=== PATIENT | female | born 1975 | race Caucasian/White ===

== ENCOUNTER → 2019-03-21 16:15 | Outpatient (CLI) | payer OTHER, MEDICAID, SELFPAY ==
--- NOTE | 2019-03-21 16:17 | DI.MG.S_ITS ---
BILATERAL DIGITAL SCREENING MAMMOGRAM 3D/2D WITH CAD: 03/21/2019 CLINICAL: Routine screening. Baseline exam. Family history of breast cancer. No prior exams were available for comparison. The tissue of both breasts is heterogeneously dense. This may lower the sensitivity of mammography. Current study was also evaluated with a Computer Aided Detection (CAD) system. No significant masses, calcifications, or other findings are seen in either breast. IMPRESSION: NEGATIVE There is no mammographic evidence of malignancy. A 1 year screening mammogram is recommended. This exam was interpreted at Station ID: [id number]. NOTE: For mammograms, a report in lay terms will be sent to the patient. Approximately 15% of breast malignancies will not be visualized mammographically. In the management of a palpable breast mass, a negative mammogram must not discourage biopsy of a clinically suspicious lesion. Electronically Signed By: Rio gunter/kellie:03/21/2019 16:52:36 letter sent: Normal Exam ACR BI-RADS Category 1: Negative [id number]
== END ==
PROVIDERS: Family Provider Family Medicine; PCP Family Medicine; Visit Provider Family Medicine
DX: Z12.31 Encounter for screening mammogram for malignant neoplasm of breast (principal); Z80.3 Family history of malignant neoplasm of breast
CPT/HCPCS: 77063; 77067

== ENCOUNTER 2019-05-13 21:37 | Emergency (ER) | payer OTHER, MEDICAID, SELFPAY ==
--- NOTE | 2019-05-13 21:46 | ED.CHESTPAIN ---
HPI - Chest Pain General Chief Complaint: Chest Pain Stated Complaint: tightness in chest, eyes bugging her Time Seen by Provider: 05/13/19 21:43 Source: patient Mode of arrival: Ambulatory Limitations: no limitations History of Present Illness HPI narrative: 43-year-old female former smoker with history of GERD, diabetes and morbid obesity presents with a chief complaint of some right eye irritation with matting for the past few days. She denies any significant pain nor recent illness involving runny nose, sore throat or cough. She does not were contacts and denies any obvious injury or exposures. She denies UV exposure, use of welding equipment or metal grinding. Patient was driving herself here to be evaluated for eye when a police car pulled up behind her and immediately she developed some anxiety and chest pressure which resolved prior to her arrival. She denies any provocation or palliation of this chest pain nor radiation. She denies other classic cardiac equivalent such as dizziness, weakness, lightheadedness nor unexplained diaphoresis, nausea or vomiting. MD complaint: chest pain Onset (ago): minute(s) Duration: now resolved Onset: other Pain location: substernal Severity: mild Quality: aching Pain radiation: none Relieving factors: nothing Exacerbating factors: nothing Treatments prior to arrival chest pain: none Related Data Previous Rx's Medication Instructions Recorded albuterol sulfate 90 mcg/actuation 2 puff INHALATION SEE INSTRUCTIONS 04/11/18 aerosol inhaler #1 inhalation naproxen 500 mg tablet 500 mg PO BID PRN #60 tab 05/02/18 ondansetron HCl 4 mg tablet 4 mg PO Q4H PRN #20 tab 09/05/18 fexofenadine 180 mg tablet 180 mg PO QDAY #90 tab 09/19/18 eletriptan 40 mg tablet See Rx Instructions PO .COMPLEX 03/06/19 #14 tab galcanezumab-gnlm 120 mg/mL 120 mg SUBCUT QMONTH #1 ml 03/06/19 subcutaneous pen injector famotidine 20 mg tablet 20 mg PO DAILY #30 tab 03/15/19 Allergies Allergy/AdvReac Type Severity Reaction Status Date / Time azithromycin [AZITHROMYCIN] Allergy Severe PROBLEMS Verified 05/11/19 13:16 BREATHING furosemide [FUROSEMIDE] Allergy Severe breathing Verified 05/11/19 13:16 problems,hives gabapentin [GABAPENTIN] Allergy Severe breathing Verified 05/11/19 13:16 problems,hives hydrocodone [HYDROCODONE] Allergy Severe unknown Verified 05/11/19 13:16 iron [IRON] Allergy Severe Unknown Verified 05/11/19 13:16 levofloxacin [LEVOFLOXACIN] Allergy Severe unknown Verified 05/11/19 13:16 loratadine [LORATADINE] Allergy Severe unknown Verified 05/11/19 13:16 meperidine [MEPERIDINE] Allergy Severe unknown Verified 05/11/19 13:16 niacin [NIACIN] Allergy Severe unknown Verified 05/11/19 13:16 promethazine [PROMETHAZINE] Allergy Severe unknown Verified 05/11/19 13:16 pyridoxine [PYRIDOXINE] Allergy Severe unknown Verified 05/11/19 13:16 adhesive [ADHESIVE] Allergy Intermediate unknown Verified 05/11/19 13:16 ascorbic acid [ASCORBIC ACID] Allergy Intermediate Verified 05/11/19 13:16 tramadol [TRAMADOL] Allergy Intermediate Verified 05/11/19 13:16 latex [LATEX] Allergy Unknown Verified 05/11/19 13:16 sulfamethoxazole Allergy Unknown ITCHY Verified 05/11/19 13:16 [From Bactrim] THROAT trimethoprim [From Bactrim] Allergy Unknown ITCHY Verified 05/11/19 13:16 THROAT Review of Systems Constitutional Constitutional: Denies chills, Denies fatigue, Denies fever(s), Denies frequent falls, Denies lethargy and Denies weakness Eyes Eyes: Denies change in vision, Reports eye discharge, Reports irritation and Denies loss of vision ENT Ears, Nose, Mouth, and Throat: Denies change in voice, Denies dizziness, Denies neck pain, Denies sore throat and Denies throat swelling Cardiovascular Cardiovascular: Reports chest pain, Denies irregular heart rhythm, Denies lightheadedness, Denies palpitations, Denies dyspnea, Denies dyspnea on exertion and Denies orthopnea Respiratory Respiratory: Denies cough, Denies dyspnea, Denies dyspnea on exertion and Denies wheezing Gastrointestinal Gastrointestinal: Denies abdominal pain, Denies change in bowel habits, Denies diarrhea, Denies nausea and Denies vomiting Genitourinary Genitourinary: Denies hematuria, Denies flank pain, Denies urinary incontinence and Denies urinary urgency Musculoskeletal Musculoskeletal: Denies back pain, Denies muscle weakness, Denies neck pain, Denies numbness and Denies tingling Integumentary/Breasts Skin/Breast: Denies pruritus, Denies erythema, Denies rash and Denies wounds Neurologic Neurologic: Denies behavioral changes, Denies confusion, Denies dizziness, Denies frequent falls, Denies loss of vision, Denies numbness, Denies tingling and Denies weakness Psychiatric Psychiatric: Denies anxiety, Denies behavioral changes, Denies confusion, Denies depression, Denies homicidal ideation and Denies suicidal ideation Endocrine Endocrine: Denies fatigue, Denies flushing and Denies palpitations Hematologic/Lymphatic Hematologic/Lymphatic: Denies easy bruising Allergic/Immunologic Allergic/Immunologic: Denies urticaria, Denies throat swelling and Denies wheezing Patient History Medical History Anemia (Chronic) Anxiety (Chronic) Asthma (Chronic) Biceps tendinitis of left shoulder (Inactive) Cervical strain (Inactive) Chicken pox (Resolved ~1983) CTS (carpal tunnel syndrome) (Chronic) Hayfever (Chronic) Hypothyroidism (Chronic ~2009) Increased wound drainage (Inactive) Measles (Resolved ~1980) Migraines (Chronic) Multiple contusions (Inactive) PCOS (polycystic ovarian syndrome) (Chronic) Pharyngitis (Inactive) PTSD (post-traumatic stress disorder) (Chronic) Rib contusion (Inactive) Right groin hernia (Inactive) RLS (restless legs syndrome) (Chronic) Scoliosis (Chronic) Superficial incisional surgical site infection (Inactive) Surgical History Anesthesia (Resolved) History of left salpingo-oophorectomy (Resolved 02/12/15) History of third molar tooth extraction (Resolved 09/2001) History of third molar tooth extraction (Resolved 06/30/06) Status post breast reduction (Resolved 11/10/95) Status post delivery (Resolved 10/03/01) Status post tonsillectomy and adenoidectomy (Resolved 1988) Family History Father No problems noted. Mother No problems noted. Social History Smoking Status: Former smoker Smoking Status: Former smoker Exam Narrative Exam Narrative: GENERAL: 43] year old patient appears stated age. Morbidly obese and anxious on arrival HEAD: Atraumatic. Normocephalic. EYES: Pupils equal round and reactive. Extraocular motions intact. No scleral icterus. Mild right eye injection with minimal exudate noted. No foreign bodies noted under inspection with Wood's lamp, upper lid everted and no foreign body noted. Symptoms improve with proparacaine. No dye uptake under UV lamp with fluorescein ENT: Nose without bleeding, purulent drainage. Throat without erythema, tonsillar hypertrophy or exudate. Airway patent. NECK: Trachea midline. Non tender CARDIOVASCULAR: Regular rate and rhythm without murmurs, gallops, or rubs. RESPIRATORY: Clear to auscultation. Breath sounds equal bilaterally. No wheezes, rales, or rhonchi. GASTROINTESTINAL: Abdomen soft, non-tender, nondistended. EXTREMITIES: No edema or joint tenderness. BACK: Nontender without deformity or crepitance. No flank tenderness. NEURO: AOx3. SKIN: No rash or erythema of visible areas Initial Vital Signs Initial Vital Signs: Vital Signs Temperature 99.2 F 05/13/19 22:08 Pulse Rate 102 H 05/13/19 22:08 Respiratory Rate 18 05/13/19 22:08 Blood Pressure 156/80 H 05/13/19 22:08 Pulse Oximetry 98 05/13/19 22:08 Course Orders Ordered: ED Orders 05/13/19 21:56 XR chest 1V Stat 05/13/19 21:57 B Type Natriuretic Peptide Stat Basic Metabolic Panel Stat Complete Blood Count AUTO DIFF Stat Troponin & CK Cardiac Panel Stat Discontinued Medications Fluorescein Sodium (Ful-Veronica) 1 mg EYE-RIGHT NOW ONE Stop: 05/14/19 00:50 Last Admin: 05/14/19 01:11 Dose: 1 mg Documented by: ELYSSA Proparacaine HCl (Parcaine 0.5% Ophth Erlinda) 1 drops EYE-RIGHT NOW ONE Stop: 05/13/19 21:55 Last Admin: 05/13/19 22:06 Dose: 1 drop Documented by: ELYSSA Sulfacetamide (Bleph-10 Prepack) 1 bottle MISC SEEINSTR ONE Stop: 05/14/19 01:01 Last Admin: 05/14/19 01:10 Dose: 1 bottle Documented by: ELYSSA Sulfacetamide (Bleph-10) 1 drops EYE-BOTH Q3H SUGEY Last Admin: 05/14/19 01:29 Dose: 1 bottle Documented by: [email or web address] Vital Signs Vital signs: Vital Signs - 8 hr 05/13/19 23:01 05/13/19 23:25 05/14/19 00:18 Temperature 100 F H Pulse Rate 95 H 94 H 101 H Respiratory Rate 15 16 16 Blood Pressure [Left Arm] 124/69 124/69 145/69 H Pulse Oximetry 98 97 96 05/14/19 00:30 Temperature Pulse Rate 96 H Respiratory Rate 22 Blood Pressure [Left Arm] 145/69 H Pulse Oximetry 95 MDM - Chest Pain Lab Data Result diagrams: 05/13/19 21:57 05/13/19 21:57 Labs: Lab Results 05/13/19 05/13/19 Range/Units 21:57 21:57 WBC 8.2 (4.5-11.0) X10^3/uL RBC 5.78 H (4.0-5.2) X10^6/uL Hgb 15.2 (12.0-16.0) g/dL Hct 44.1 (36-46) % MCV 76.3 L (80-100) fL MCH 26.2 (26-34) PG MCHC 34.4 (30-36) % RDW 14.8 (11.6-14.8) % Plt Count 249 (150-400) X10^3/uL Neut % (Auto) 65.4 (50-75) % Lymph % (Auto) 26.5 (25-40) % [place] % (Auto) 3.7 (3-14) % Eos % (Auto) 3.0 (2-4) % Baso % (Auto) 1.4 (0-2) % Neut # (Auto) 5400 (7701-7772) /uL Lymph # (Auto) 2200 (1471-9645) /uL [place] # (Auto) 300 (0-900) /uL Eos # (Auto) 200 (0-450) /uL Baso # (Auto) 100 (0-100) /uL Sodium 136 L (137-145) mmol/L Potassium 3.8 (3.4-5.1) mmol/L Chloride 98 (98-107) mmol/L Carbon Dioxide 25 (22-32) mmol/L BUN 14 (7-17) mg/dL Creatinine 0.40 L (0.52-1.04) mg/dL Estimated GFR > 60.0 (>60) mL/min BUN/Creatinine Ratio 35.0 H (6-22) Glucose 291 H (70-100) mg/dL Calcium 9.8 (8.4-10.2) mg/dL Total Creatine Kinase 69 (30-135) U/L CK-MB (CK-2) TNP CK-MB (CK-2) Rel Index TNP Troponin I < 0.012 (0.01-0.034) ng/mL B-Natriuretic Peptide < 100 (<100) MDM Narrative Medical decision making narrative: Multiple causes of chest pain considered including NH, PE, pneumothorax, pneumonia, aortic dissection, and pleurisy. Patient reports no radiation, no diaphoresis, no provocation with exertion, and no vomiting Patient's symptoms improved or duration of stay with above-stated therapies. Findings and discharge diagnosis discussed with patient/family followed by verbalization of understanding Return precautions discussed with patient/family whom verbalize understanding. Discharge Plan Departure Patient Disposition: Home Clinical Impression: Atypical chest pain Conjunctivitis Qualifiers: Conjunctivitis type: acute Acute conjunctivitis type: unspecified Laterality: right Qualified Code(s): H10.31 - Unspecified acute conjunctivitis, right eye Discharge Date/Time: 05/14/19 01:15 Instructions: DI for Atypical Chest Pain Activity Restrictions/Additional Instructions: *You have been diagnosed with [atypical chest pain, possibly anxiety and conjunctivitis] *What to do: *Take medications as directed *Follow up with your primary care provider in 2-3 days, call for an appointment. Let them know you were seen in the Emergency Department and that we ask that you be seen in follow up *Return to ER if you should have any new, worsening or concerning symptoms Prescriptions: No Action fexofenadine 180 mg tablet 180 mg PO QDAY Qty: 90 RF: 3 ondansetron HCl [Zofran] 4 mg tablet 4 mg PO Q4H PRN (Reason: nausea and vomiting) Qty: 20 RF: 2 famotidine [Pepcid] 20 mg tablet 20 mg PO DAILY Qty: 30 RF: 11 albuterol sulfate [Proventil HFA] 90 mcg/actuation HFA aerosol inhaler 2 puff INHALATION SEE INSTRUCTIONS Qty: 1 RF: 2 naproxen [Naprosyn] 500 mg tablet 500 mg PO BID PRN (Reason: pain) Qty: 60 RF: 2 eletriptan 40 mg tablet See Rx Instructions PO .COMPLEX Qty: 14 RF: 5 Emgality Pen 120 mg/mL pen injector 120 mg SUBCUT QMONTH Qty: 1 RF: 12 Referrals: Phillip Nunez MD [Primary Care Provider] -
--- NOTE | 2019-05-13 21:56 | DI.RAD.S_ITS ---
PROCEDURE: XR CHEST 1V INDICATIONS: chest pressure TECHNIQUE: One view of the chest was acquired. COMPARISON: [facility], , CHEST 2 VIEW, 06/05/2014, 23:28. FINDINGS: Surgical changes and devices: None. Lungs and pleura: Lungs are clear. No pleural effusions or pneumothorax. Mediastinum: Mediastinal contours appear normal. Heart size is normal. Bones and chest wall: No suspicious bony lesions. Overlying soft tissues appear unremarkable. IMPRESSION: No acute cardiopulmonary disease process. Dictated by: Tari Pacheco MD, PhD on 05/14/2019 at 8:40 Approved by: Tari Pacheco MD, PhD on 05/14/2019 at 8:43
[2019-05-13] MEDS: PROPARACAINE 0.5% OPHTH SOL 1 DROPS EYE-RIGHT (22:06)
[2019-05-13 22:07] LABS: Add Manual Diff / Slide Review NO; Basophils Absolute Auto 100 /uL (0-100); Basophils Percent Auto 1.4 % (0-2); Eosinophils Absolute Auto 200 /uL (0-450); Hematocrit 44.1 % (36-46); Hemoglobin 15.2 g/dL (12.0-16.0); Lymphocytes Absolute Auto 2200 /uL (1100-4500); Lymphocytes Percent Auto 26.5 % (25-40); Mean Corpuscular HGB Conc 34.4 % (30-36); Mean Corpuscular Hemoglobin 26.2 PG (26-34); Mean Corpuscular Volume 76.3 fL (80-100); Monocytes Absolute Auto 300 /uL (0-900); Monocytes Percent Auto 3.7 % (3-14); Neutrophils Absolute Auto 5400 /uL (1500-7000); Neutrophils Percent Auto 65.4 % (50-75); Platelet Count 249 X10^3/uL (150-400); Red Blood Cell Count 5.78 X10^6/uL (4.0-5.2); Red Cell Distribution Width 14.8 % (11.6-14.8); White Blood Cell Count 8.2 X10^3/uL (4.5-11.0)
[2019-05-13 22:08] VITALS: BP 156/80; PULSE 102; RESP 18; TEMP 37.3; O2SAT 98; BMI 44.6
[2019-05-13 22:15] LABS: Blood Urea Nitrogen 14 mg/dL (7-17); Calcium 9.8 mg/dL (8.4-10.2); Carbon Dioxide 25 mmol/L (22-32); Chloride 98 mmol/L (98-107); Creatine Kinase 69 U/L (30-135); Estimated Glomerular Filt Rate > 60.0 mL/min (>60); Glucose 291 mg/dL (70-100); HEMOLYSIS < 15 (0-50); Potassium 3.8 mmol/L (3.4-5.1); Sodium 136 mmol/L (137-145)
[2019-05-13 22:27] LABS: Troponin I < 0.012 ng/mL (0.01-0.034)
[2019-05-13 22:28] LABS: B Type Natriuretic Peptide < 100 (<100)
[2019-05-13 23:01] VITALS: BP 124/69; PULSE 95; RESP 15; O2SAT 98
[2019-05-13 23:25] VITALS: BP 124/69; PULSE 94; RESP 16; O2SAT 97
[2019-05-14 00:18] VITALS: BP 145/69; PULSE 101; RESP 16; TEMP 37.7; O2SAT 96
[2019-05-14 00:30] VITALS: BP 145/69; PULSE 96; RESP 22; O2SAT 95
[2019-05-14] MEDS: SULFACETAMIDE 10% OPHTH PREPACK 1 BOTTLE MISC (01:10)
[2019-05-14] MEDS: FLUORESCEIN 1 MG STRIP EYE-RIGHT (01:11)
[2019-05-14] MEDS: SULFACETAMIDE 10% 1 DROPS EYE-BOTH (01:29)
== END 2019-05-14 01:15 | disposition home or self-care (01) ==
PROVIDERS: Emergency Provider Emergency Medicine; Family Provider Family Medicine; PCP Family Medicine
DX: R07.89 Other chest pain (principal); H10.31 Unspecified acute conjunctivitis, right eye
CPT/HCPCS: 36415; 71045; 80048; 82550; 83880; 84484; 85025; 99284

== ENCOUNTER → 2019-06-07 10:51 | Outpatient (CLI) | payer OTHER, MEDICAID, SELFPAY ==
[2019-06-07 13:02] LABS: Cancer Antigen 125 17 U/mL (0-35)
[2019-06-13 15:30] LABS: Human HE4 Antigen 30 pmol/L
== END ==
PROVIDERS: Family Provider Family Medicine; PCP Family Medicine; Referring Provider Obstetrics & Gynecology; Visit Provider Obstetrics & Gynecology
DX: R19.03 Right lower quadrant abdominal swelling, mass and lump (principal)
CPT/HCPCS: 36415; 86304; 86305

== ENCOUNTER → 2019-06-29 12:36 | Outpatient (CLI) | payer OTHER, MEDICAID, SELFPAY ==
--- NOTE | 2019-06-29 15:20 | DIET.PN ---
Diabetes Intake: Initial Assessment Assess: Mrs. Skinner is a 43 YOF with PMHx significant for PCOS, Fibromyalgia, left tubal/ ovary removal who was referred for type 2 diabetes. She was diagnosed in 2016 with poor control to date. She recently started monitoring her BG, but does not do so routinely. She has not had an eye or dental exam in at least 23 yrs per pt report. She recently started metformin 500mg qd and reports allergic reaction to this medication in previous years. Labs: Per pt report: 13.7 (06/2016) Meds: metformin 500mg qd (will titrate to 1000mg BID) Wt: 251lb Ht: 63lb BMI: 44.46 (obese class III) DX: Altered nutrition related laboratory values related to impaired glucose metabolism, lack of previous exposure to nutrition information as evidenced by pt report, diagnosis of diabetes, previous diet high in refined carbohydrates. Intervention: 1. Completed intake assessment. Discussed barriers to care. 2. Discussed pathophysiology of diabetes. Reviewed A1c and its correlation to blood glucose numbers. Discussed recommended BG ranges. 3. Discussed importance of self-monitoring, how often, and when to check. 4. Reviewed hyper/hypoglycemia and treatment. 5. Reviewed safe disposal of equipment (strip/lancets/insulin needles). 6. Created SMART goals for pt self-care and success. 7. Discussed program curriculum outline and class needs based on individual goals. 8. Will request updated labs. SMART Goals: 1. Glucose control through healthier dietary habits. 2. Would like to start lose 100 lb through exercise, healthier eating, and stress management. Monitor/Evaluate: Anticipate excellent compliance. Pt will attend full DSME program.
== END ==
PROVIDERS: Family Provider Family Medicine; PCP Family Medicine; Referring Provider Family Medicine; Visit Provider Family Medicine
DX: E11.69 Type 2 diabetes mellitus with other specified complication (principal); E66.9 Obesity, unspecified; E28.2 Polycystic ovarian syndrome; M79.7 Fibromyalgia; Z71.3 Dietary counseling and surveillance; Z68.41 Body mass index [BMI] 40.0-44.9, adult; Z79.84 Long term (current) use of oral hypoglycemic drugs
CPT/HCPCS: G0108

== ENCOUNTER → 2019-07-05 12:32 | Outpatient (CLI) | payer OTHER, MEDICAID, SELFPAY ==
--- NOTE | 2019-07-05 12:34 | DI.US.S_ITS ---
PROCEDURE: US PELVIC COMPLETE INDICATIONS: PAIN TECHNIQUE: Real-time scanning was performed of the pelvic organs, with image documentation. Additional endovaginal scanning was necessary due to incomplete visualization of the adnexal and endometrial structures by transabdominal scanning. COMPARISON: [facility], US, US PELVIC COMPLETE, 05/11/2019, 13:43. FINDINGS: Transabdominal scanning: Limited scanning through the kidneys shows no hydronephrosis. No pathologic free abdominal or pelvic fluid. Endovaginal scanning: Uterus: Uterus is normal in size at 8.1 x 4.2 x 6.3 cm. No mass. The endometrium measures 8 mm in combined thickness. Small nabothian cysts. Ovaries: Right ovary is within normal limits. Unremarkable Doppler. Right ovary measures 3.5 x 2.6 x 3.4 cm. Left ovary is surgically absent. Right kidney measures 12 cm. Left kidney measures 13.3 cm. No hydronephrosis. IMPRESSION: 1. Normal sonographic appearance of the right ovary. The left ovary is surgically absent. 2. Unremarkable appearance of the uterus and endometrium. 3. No hydronephrosis. Dictated by: Mesfin Sandra M.D. on 07/05/2019 at 17:49 Approved by: Mesfin Sandra M.D. on 07/05/2019 at 17:52
--- NOTE | 2019-07-05 12:34 | DI.US.S_ITS ---
LIMITED ULTRASOUND OF LEFT BREAST: 07/05/2019 CLINICAL: Focal left breast pain. Diffuse left breast pain. Comparison is made to exams dated: 07/05/2019 mammogram and 03/21/2019 mammogram - [facility]. Real-time ultrasound of the left breast 2-4 o'clock and 7-8 o'clock regions was performed. Mayers scale images of the real-time examination were reviewed. No significant abnormalities were seen sonographically in the left breast. Specifically, no finding to correspond to the patient's pain or skin discoloration. IMPRESSION: NEGATIVE There is no suspicious finding or sonographic evidence of malignancy. Return to annual mammogram screening schedule is recommended. Findings and recommendations were conveyed to the patient at time of exam. This exam was interpreted at Station ID: [id number]. Electronically Signed By: Amy villareal/:07/05/2019 14:29:26 letter sent: Normal Exam Ultrasound BI-RADS: 1 Negative
--- NOTE | 2019-07-05 12:34 | DI.MG.S_ITS ---
UNILATERAL LEFT DIGITAL DIAGNOSTIC MAMMOGRAM 3D/2D: 07/05/2019 CLINICAL: Left pain and discoloration. Comparison is made to exam dated: 03/21/2019 [facility]. The tissue of left breast is heterogeneously dense. This may lower the sensitivity of mammography. No significant masses, calcifications, or other findings are seen in the breast. Specifically, no finding to correspond to the patient's skin discoloration or pain. IMPRESSION: INCOMPLETE: NEEDS ADDITIONAL IMAGING EVALUATION There is no abnormality seen in the left breast to correspond with the skin discoloration at 7 o'clock. There is no abnormality seen in the left breast to correspond with the pain in the lateral aspect, however, ultrasound is recommended. This was performed immediately following this exam. This exam was interpreted at Station ID: [id number]. NOTE: For mammograms, a report in lay terms will be sent to the patient. Approximately 15% of breast malignancies will not be visualized mammographically. In the management of a palpable breast mass, a negative mammogram must not discourage biopsy of a clinically suspicious lesion. Electronically Signed By: Amy villareal/:07/05/2019 14:28:31 ACR BI-RADS Category 0: Incomplete [id number]
== END ==
PROVIDERS: Family Provider Family Medicine; PCP Family Medicine; Referring Provider Obstetrics & Gynecology; Visit Provider Obstetrics & Gynecology
DX: R92.8 Other abnormal and inconclusive findings on diagnostic imaging of breast (principal); N64.4 Mastodynia; R10.2 Pelvic and perineal pain; N88.8 Other specified noninflammatory disorders of cervix uteri; Z90.721 Acquired absence of ovaries, unilateral
CPT/HCPCS: 64484; 76642; 76830; 76856; 77065; G0279

== ENCOUNTER → 2019-11-18 13:52 | Outpatient (CLI) | payer OTHER, MEDICAID, SELFPAY ==
[2019-11-20 01:41] LABS: COVID19 Sendout Not Detected (Not Detect)
== END ==
PROVIDERS: Family Provider Family Medicine; PCP Family Medicine; Visit Provider Physician Assistant
DX: Z01.818 Encounter for other preprocedural examination (principal)
CPT/HCPCS: 87635

== ENCOUNTER → 2020-03-24 09:48 | Outpatient (CLI) | payer OTHER, MEDICAID, SELFPAY ==
--- NOTE | 2020-03-24 | DI.MG.S_ITS ---
BILATERAL DIGITAL SCREENING MAMMOGRAM 3D/2D WITH CAD: 03/24/2020 CLINICAL: Routine screening. Family history of breast cancer. Comparison is made to exams dated: 07/05/2019 mammogram and 03/21/2019 mammogram - [facility]. The tissue of both breasts is heterogeneously dense. This may lower the sensitivity of mammography. Current study was also evaluated with a Computer Aided Detection (CAD) system. No significant masses, calcifications, or other findings are seen in either breast. There has been no significant interval change. IMPRESSION: NEGATIVE There is no mammographic evidence of malignancy. A 1 year screening mammogram is recommended. This exam was interpreted at Station ID: [id number]. NOTE: For mammograms, a report in lay terms will be sent to the patient. Approximately 15% of breast malignancies will not be visualized mammographically. In the management of a palpable breast mass, a negative mammogram must not discourage biopsy of a clinically suspicious lesion. Electronically Signed By: Brooke ballard/kellie:03/24/2020 16:22:27 letter sent: Normal Exam ACR BI-RADS Category 1: Negative [id number]
== END ==
PROVIDERS: Family Provider Family Medicine; PCP Family Medicine; Referring Provider Family Medicine; Visit Provider Family Medicine
DX: Z12.31 Encounter for screening mammogram for malignant neoplasm of breast (principal); Z80.3 Family history of malignant neoplasm of breast
CPT/HCPCS: 77063; 77067

== ENCOUNTER 2020-05-04 23:23 | Emergency (ER) | payer OTHER, MEDICAID, SELFPAY ==
[2020-05-04 23:25] VITALS: BP 161/94; PULSE 110; RESP 18; TEMP 37.6; O2SAT 97; BMI 42.5
--- NOTE | 2020-05-04 23:41 | ED_ITS ---
HPI - General Adult General Chief complaint: Back Pain/Injury Stated complaint: back pain Time Seen by Provider: 05/04/20 23:34 Source: patient Mode of arrival: Ambulatory Limitations: no limitations History of Present Illness HPI narrative: Patient is a 44-year-old female who approximately 24 hours ago was walking around her bed when she had a sudden onset of left lower back pain. She states that now she has bilateral lower back pain. No urinary symptoms. No change in bowel habits. No radiation down into her legs. She has had symptoms similar to this in the past. She states that she did not fall during this episode. She now also describes generalized abdominal pain. No fevers. No vomiting. Has not tried anything for symptoms prior to arrival. Related Data Previous Rx's Medication Instructions Recorded naproxen 500 mg tablet 500 mg PO BID PRN #60 tab 05/02/18 ondansetron HCl 4 mg tablet 4 mg PO Q4H PRN #20 tab 09/05/18 fexofenadine 180 mg tablet 180 mg PO QDAY #90 tab 09/19/18 eletriptan 40 mg tablet See Rx Instructions PO .COMPLEX 03/06/19 #14 tab galcanezumab-gnlm 120 mg/mL 120 mg SUBCUT QMONTH #1 ml 03/06/19 subcutaneous pen injector famotidine 20 mg tablet 20 mg PO DAILY #30 tab 03/15/19 blood sugar diagnostic #100 each 06/06/19 blood-glucose meter #1 each 06/06/19 lancets 30 gauge #100 each 06/06/19 oxycodone-acetaminophen 5 mg-325 2 tab PO Q4-6H PRN #20 tab 11/28/19 mg tablet duloxetine 20 mg capsule,delayed 40 mg PO DAILY #60 cap 03/17/20 release Allergies Allergy/AdvReac Type Severity Reaction Status Date / Time azithromycin [AZITHROMYCIN] Allergy Severe PROBLEMS Verified 02/18/20 14:21 BREATHING furosemide [FUROSEMIDE] Allergy Severe breathing Verified 02/18/20 14:21 problems,hives gabapentin [GABAPENTIN] Allergy Severe breathing Verified 02/18/20 14:21 problems,hives hydrocodone [HYDROCODONE] Allergy Severe unknown Verified 02/18/20 14:21 iron [IRON] Allergy Severe Unknown Verified 02/18/20 14:21 levofloxacin [LEVOFLOXACIN] Allergy Severe unknown Verified 02/18/20 14:21 loratadine [LORATADINE] Allergy Severe unknown Verified 02/18/20 14:21 meperidine [MEPERIDINE] Allergy Severe unknown Verified 02/18/20 14:21 niacin [NIACIN] Allergy Severe unknown Verified 02/18/20 14:21 promethazine [PROMETHAZINE] Allergy Severe unknown Verified 02/18/20 14:21 pyridoxine [PYRIDOXINE] Allergy Severe unknown Verified 02/18/20 14:21 adhesive [ADHESIVE] Allergy Intermediate unknown Verified 02/18/20 14:21 ascorbic acid [ASCORBIC ACID] Allergy Intermediate Verified 02/18/20 14:21 tramadol [TRAMADOL] Allergy Intermediate Verified 02/18/20 14:21 latex [LATEX] Allergy Unknown Verified 02/18/20 14:21 sulfamethoxazole Allergy Unknown ITCHY Verified 02/18/20 14:21 [From Bactrim] THROAT trimethoprim [From Bactrim] Allergy Unknown ITCHY Verified 02/18/20 14:21 THROAT morphine AdvReac Migraines Verified 02/18/20 14:21 Review of Systems Constitutional Constitutional: Denies fever(s) and Denies headache(s) ENT Ears, Nose, Mouth, and Throat: Denies headache(s) Cardiovascular Cardiovascular: Denies chest pain and Denies dyspnea Respiratory Respiratory: Denies dyspnea Gastrointestinal Gastrointestinal: Reports abdominal pain, Denies nausea and Denies vomiting Genitourinary Genitourinary: Denies dysuria Genitourinary: Denies dysuria Musculoskeletal Musculoskeletal: Denies arthralgias, Reports back pain and Denies myalgias Integumentary/Breasts Skin/Breast: Denies lesions and Denies rash Neurologic Neurologic: Denies behavioral changes and Denies headache(s) Psychiatric Psychiatric: Denies behavioral changes Hematologic/Lymphatic On Anticoagulants: No Allergic/Immunologic Allergic/Immunologic: Denies urticaria Patient History Medical History Anemia Anxiety Asthma Biceps tendinitis of left shoulder Cervical strain Chicken pox (~1983) CTS (carpal tunnel syndrome) Hayfever Hypothyroidism (~2009) Increased wound drainage Measles (~1980) Migraines Morbid obesity due to excess calories (07/21/16) Multiple contusions PCOS (polycystic ovarian syndrome) Pharyngitis PTSD (post-traumatic stress disorder) Rib contusion Right groin hernia RLS (restless legs syndrome) Scoliosis Superficial incisional surgical site infection Surgical History (Updated 11/28/19 @ 12:31 by Rekha Ramos MD) Anesthesia History of left salpingo-oophorectomy (02/12/15) History of third molar tooth extraction (09/2001) History of third molar tooth extraction (06/30/06) Status post breast reduction (11/10/95) Status post delivery (10/03/01) Status post tonsillectomy and adenoidectomy (1988) Family History Father No problems noted. Mother No problems noted. Unknown No pertinent family history Social History Smoking Status: Former smoker eating out: rarely or never Type(s) of exercise: walking, advised to exercise at least 150 min/week (moderate intensity aerobic) and advised to perform resistance training at least 2x/week Smoking Status: Former smoker alcohol intake frequency: 0-2 drinks per day Substance Use Type: does not use Exam Initial Vital Signs Initial Vital Signs: Vital Signs Temperature 99.7 F H 05/04/20 23:25 Pulse Rate 110 H 05/04/20 23:25 Respiratory Rate 18 05/04/20 23:25 Blood Pressure 161/94 H 05/04/20 23:25 Pulse Oximetry 97 05/04/20 23:25 Const General: cooperative and comfortable Limitations: mental status not altered HENMT Head: normal to inspection and normocephalic Resp Effort & Inspection: normal respiratory effort Cardio Rate: tachycardic Rhythm: regular rhythm GI Inspection: non-distended Palpation: soft, No firm, No rigid and tender (Generalized) Back/Spine/Pelvis Thoracic/Lumbar Spine: paraspinal tenderness (Left lumbar paraspinal), No th oracic spinal tenderness and No lumbar spinal tenderness Skin Lesions: no lesions Rashes: no rashes Neuro General: patient alert and patient awake Cognition: normal cognition Speech: speech normal Extrem General: normal to inspection and capillary refill normal Psych Appearance: grossly normal and well kempt Course Orders Ordered: ED Orders 05/04/20 23:47 Complete Blood Count AUTO DIFF Stat Comprehensive Metabolic Panel Stat Lipase Stat Vital Signs Vital signs: Vital Signs - 8 hr 05/04/20 23:25 01/11/21 02:18 Temperature 99.7 F H Pulse Rate 110 H 108 H Respiratory Rate 18 15 Blood Pressure 161/94 H 153/83 H Pulse Oximetry 97 97 Medical Decision Making Lab Data Lab results reviewed: Yes I reviewed the patient's lab results. Result diagrams: 05/04/20 23:47 05/04/20 23:47 Labs: Lab Results 05/04/20 05/04/20 Range/Units 23:47 23:47 WBC 9.7 (4.5-11.0) X10^3/uL RBC 5.82 H (4.0-5.2) X10^6/uL Hgb 15.3 (12.0-16.0) g/dL Hct 46.1 H (36-46) % MCV 79.2 L (80-100) fL MCH 26.3 (26-34) PG MCHC 33.2 (30-36) % RDW 14.4 (11.6-14.8) % Plt Count 289 (150-400) X10^3/uL Neut % (Auto) 65.8 (50-75) % Lymph % (Auto) 26.1 (25-40) % [place] % (Auto) 4.1 (3-14) % Eos % (Auto) 2.9 (2-4) % Baso % (Auto) 1.1 (0-2) % Neut # (Auto) 6400 (7712-4347) /uL Lymph # (Auto) 2500 (3910-4749) /uL [place] # (Auto) 400 (0-900) /uL Eos # (Auto) 300 (0-450) /uL Baso # (Auto) 100 (0-100) /uL Sodium 134 L (137-145) mmol/L Potassium 4.5 (3.4-5.1) mmol/L Chloride 97 L (98-107) mmol/L Carbon Dioxide 29 (22-32) mmol/L BUN 17 (7-17) mg/dL Creatinine 0.96 (0.52-1.04) mg/dL Estimated GFR > 60.0 (>60) mL/min BUN/Creatinine Ratio 17.7 (6-22) Glucose 320 H (70-100) mg/dL Calcium 9.8 (8.4-10.2) mg/dL Total Bilirubin 0.6 (0.2-1.3) mg/dL AST 22 (14-36) IU/L ALT 31 (<35) IU/L Alkaline Phosphatase 115 (38-126) U/L Total Protein 7.5 (6.3-8.2) g/dL Albumin 4.3 (3.5-5.0) g/dL Globulin 3.2 (1.7-4.1) g/dL Albumin/Globulin Ratio 1.3 (1.0-2.8) Lipase 66 (23-300) U/L Urine Dip Bedside Urine Glucose 1000 mg/dl Bedside Urine Bilirubin - Negative Bedside Urine Ketone - Negative Urine Specific [place] 1.020 Bedside Urine Occult Blood - Negative Bedside Urine pH 6.0 Bedside Urine Protein - Negative Bedside Urine Urobilinogen - Negative Bedside Urine Nitrite - Negative Bedside Urine Leukocytes - Negative Esterase Point of care testing: Urine Dip Bedside Urine Glucose 1000 mg/dl Bedside Urine Bilirubin - Negative Bedside Urine Ketone - Negative Urine Specific [place] 1.020 Bedside Urine Occult Blood - Negative Bedside Urine pH 6.0 Bedside Urine Protein - Negative Bedside Urine Urobilinogen - Negative Bedside Urine Nitrite - Negative Bedside Urine Leukocytes - Negative Esterase MDM Narrative Medical decision making narrative: Patient's labs are unremarkable. She does have a relatively benign abdominal exam. I feel given her clinical presentation her labs that we should hold on a abdominal CT scan for now. I have a strong suspicion that her left-sided lower back pain is musculoskeletal in origin given her presentation and history. Will treat conservatively with anti- inflammatories. Patient was given return precautions and follow-up i nstructions. She expressed understanding and agreement. Discharge Plan Departure Patient Disposition: Home Clinical Impression: Back pain, Abdominal pain Instructions: DI for Back Strain or Sprain Activity Restrictions/Additional Instructions: Because of your allergies your somewhat limited on which you can take. You can take Tylenol for discomfort. You can also use heat/ice and light stretching. Contact your primary provider for a follow-up. Return to the emergency department for any new or worsening symptoms Prescriptions: No Action fexofenadine 180 mg tablet 180 mg PO QDAY Qty: 90 RF: 3 ondansetron HCl [Zofran] 4 mg tablet 4 mg PO Q4H PRN (Reason: nausea and vomiting) Qty: 20 RF: 2 famotidine [Pepcid] 20 mg tablet 20 mg PO DAILY Qty: 30 RF: 11 (DME) blood-glucose meter [Blood Glucose Monitoring] Kit See Rx Instructions .ROUTE .MEDSUPPLY Qty: 1 RF: 0 (DME) Blood Glucose Test Strip See Rx Instructions .ROUTE .MEDSUPPLY Qty: 100 RF: 5 (DME) lancets 30 gauge misc See Rx Instructions .ROUTE .MEDSUPPLY Qty: 100 RF: 5 oxycodone-acetaminophen 5-325 mg tablet 2 tab PO Q4-6H PRN (Reason: pain) Qty: 20 RF: 0 duloxetine 20 mg capsule,delayed release(DR/EC) 40 mg PO DAILY Qty: 60 RF: 3 naproxen [Naprosyn] 500 mg tablet 500 mg PO BID PRN (Reason: pain) Qty: 60 RF: 2 eletriptan 40 mg tablet See Rx Instructions PO .COMPLEX Qty: 14 RF: 5 Emgality Pen 120 mg/mL pen injector 120 mg SUBCUT QMONTH Qty: 1 RF: 12 Referrals: Phillip Nunez MD [Primary Care Provider] -
[2020-05-05 00:13] LABS: Add Manual Diff / Slide Review NO; Basophils Absolute Auto 100 /uL (0-100); Basophils Percent Auto 1.1 % (0-2); Eosinophils Absolute Auto 300 /uL (0-450); Eosinophils Percent Auto 2.9 % (2-4); Hematocrit 46.1 % (36-46); Hemoglobin 15.3 g/dL (12.0-16.0); Lymphocytes Absolute Auto 2500 /uL (1100-4500); Lymphocytes Percent Auto 26.1 % (25-40); Mean Corpuscular HGB Conc 33.2 % (30-36); Mean Corpuscular Hemoglobin 26.3 PG (26-34); Mean Corpuscular Volume 79.2 fL (80-100); Monocytes Absolute Auto 400 /uL (0-900); Monocytes Percent Auto 4.1 % (3-14); Neutrophils Absolute Auto 6400 /uL (1500-7000); Neutrophils Percent Auto 65.8 % (50-75); Platelet Count 289 X10^3/uL (150-400); Red Blood Cell Count 5.82 X10^6/uL (4.0-5.2); Red Cell Distribution Width 14.4 % (11.6-14.8); White Blood Cell Count 9.7 X10^3/uL (4.5-11.0)
[2020-05-05 00:24] LABS: Alanine Aminotransferase 31 IU/L (<35); Albumin 4.3 g/dL (3.5-5.0); Albumin Globulin Ratio 1.3 (1.0-2.8); Alkaline Phosphatase 115 U/L (38-126); Aspartate Aminotransferase 22 IU/L (14-36); BUN Creatinine Ratio 17.7 (6-22); Bilirubin Total 0.6 mg/dL (0.2-1.3); Blood Urea Nitrogen 17 mg/dL (7-17); Calcium 9.8 mg/dL (8.4-10.2); Carbon Dioxide 29 mmol/L (22-32); Chloride 97 mmol/L (98-107); Estimated Glomerular Filt Rate > 60.0 mL/min (>60); Globulin 3.2 g/dL (1.7-4.1); Glucose 320 mg/dL (70-100); HEMOLYSIS < 15 (0-50); Lipase 66 U/L (23-300); Potassium 4.5 mmol/L (3.4-5.1); Sodium 134 mmol/L (137-145); Total Protein 7.5 g/dL (6.3-8.2)
[2020-05-05 02:18] VITALS: BP 153/83; PULSE 108; RESP 15; O2SAT 97
== END 2020-05-05 01:42 | disposition home or self-care (01) ==
PROVIDERS: Emergency Provider Emergency Medicine; Family Provider Family Medicine; PCP Family Medicine
DX: M54.5 Low back pain (principal); R10.84 Generalized abdominal pain; D64.9 Anemia, unspecified; E66.9 Obesity, unspecified; Z68.41 Body mass index [BMI] 40.0-44.9, adult; E03.9 Hypothyroidism, unspecified
CPT/HCPCS: 36415; 80053; 81003; 83690; 85025; 99283

== ENCOUNTER 2021-01-11 14:04 | Emergency (ER) | payer OTHER, MEDICAID, SELFPAY ==
[2021-01-11 14:15] VITALS: BP 155/73; PULSE 98; RESP 20; TEMP 36.8; O2SAT 99; BMI 43.0
--- NOTE | 2021-01-11 14:19 | DI.RAD.S_ITS ---
PROCEDURE: XR FOOT RT MIN 3V INDICATIONS: Metal chair fell on foot. Painful, non-weight bearing TECHNIQUE: 3 views of the foot were acquired. COMPARISON: None. FINDINGS: Bones: No acute fractures or dislocations. No suspicious bony lesions. Plantar and posterior calcaneal enthesophytes are present. Soft tissues: No suspicious soft tissue calcification. IMPRESSION: No acute osseous abnormality. If clinical suspicion and/or symptoms persist, additional imaging with repeat plain films, or advanced imaging (e.g. CT, MRI) may be helpful for further assessment. Dictated by: Daniel Lebron M.D. on 01/11/2021 at 14:31 Approved by: Daniel Lebron M.D. on 01/11/2021 at 14:32
--- NOTE | 2021-01-11 14:35 | ED.LOWEXIN ---
HPI - Extremity Injury (Lower) General Chief Complaint: Extremity Injury, Lower Stated Complaint: Rt Foot Pain, Chair Fell On It Time Seen by Provider: 01/11/21 14:16 Source: patient Mode of arrival: Ambulatory Limitations: no limitations History of Present Illness HPI Narrative: Patient is a 45-year-old female here for evaluation of right foot/ankle discomfort. She stated that she had a stack of folded metal folding chairs fall on her right foot. Since that time she has had pain. Has discomfort with standing and putting pressure on her foot. No prior injuries. Related Data Previous Rx's Medication Instructions Recorded fexofenadine 180 mg tablet 180 mg PO QDAY #90 tab 09/19/18 eletriptan 40 mg tablet See Rx Instructions PO .COMPLEX 03/06/19 #14 tab galcanezumab-gnlm 120 mg/mL 120 mg SUBCUT QMONTH #1 ml 03/06/19 subcutaneous pen injector (Emgality Pen) blood sugar diagnostic (Blood #100 each 06/06/19 Glucose Test) blood-glucose meter (Blood Glucose #1 each 06/06/19 Monitoring) lancets 30 gauge #100 each 06/06/19 triamcinolone acetonide 0.1 % See Rx Instructions TOPICAL BID 05/12/20 topical cream #30 g duloxetine 60 mg capsule,delayed 60 mg PO DAILY #90 cap 11/26/20 release Allergies Allergy/AdvReac Type Severity Reaction Status Date / Time azithromycin [AZITHROMYCIN] Allergy Severe PROBLEMS Verified 01/11/21 14:18 BREATHING furosemide [FUROSEMIDE] Allergy Severe breathing Verified 01/11/21 14:18 problems,hives gabapentin [GABAPENTIN] Allergy Severe breathing Verified 01/11/21 14:18 problems,hives hydrocodone [HYDROCODONE] Allergy Severe unknown Verified 01/11/21 14:18 iron [IRON] Allergy Severe Unknown Verified 01/11/21 14:18 levofloxacin [LEVOFLOXACIN] Allergy Severe unknown Verified 01/11/21 14:18 loratadine [LORATADINE] Allergy Severe unknown Verified 01/11/21 14:18 meperidine [MEPERIDINE] Allergy Severe unknown Verified 01/11/21 14:18 niacin [NIACIN] Allergy Severe unknown Verified 01/11/21 14:18 promethazine [PROMETHAZINE] Allergy Severe unknown Verified 01/11/21 14:18 pyridoxine [PYRIDOXINE] Allergy Severe unknown Verified 01/11/21 14:18 adhesive [ADHESIVE] Allergy Intermediate unknown Verified 01/11/21 14:18 ascorbic acid [ASCORBIC ACID] Allergy Intermediate Verified 01/11/21 14:18 tramadol [TRAMADOL] Allergy Intermediate Verified 01/11/21 14:18 latex [LATEX] Allergy Unknown Verified 01/11/21 14:18 sulfamethoxazole Allergy Unknown ITCHY Verified 01/11/21 14:18 [From Bactrim] THROAT trimethoprim [From Bactrim] Allergy Unknown ITCHY Verified 01/11/21 14:18 THROAT morphine AdvReac Migraines Verified 01/11/21 14:18 Review of Systems Musculoskeletal Musculoskeletal: Reports system reviewed and no additional complaints, except as documented and Reports as per HPI Integumentary/Breasts Skin/Breast: Reports system reviewed and no additional complaints, except as documented and Reports as per HPI Neurologic Neurologic: Reports system reviewed and no additional complaints, except as documented and Reports as per HPI Hematologic/Lymphatic On Anticoagulants: No Patient History Medical History Anemia Anxiety Asthma Biceps tendinitis of left shoulder Cervical strain Chicken pox (~1983) CTS (carpal tunnel syndrome) Hayfever Hypothyroidism (~2009) Increased wound drainage Measles (~1980) Migraines Morbid obesity due to excess calories (07/21/16) Multiple contusions PCOS (polycystic ovarian syndrome) Pharyngitis PTSD (post-traumatic stress disorder) Rib contusion Right groin hernia RLS (restless legs syndrome) Scoliosis Superficial incisional surgical site infection Surgical History (Updated 11/28/19 @ 12:31 by Rekha Ramos MD) Anesthesia History of left salpingo-oophorectomy (02/12/15) History of third molar tooth extraction (09/2001) History of third molar tooth extraction (06/30/06) Status post breast reduction (11/10/95) Status post delivery (10/03/01) Status post tonsillectomy and adenoidectomy (1988) Family History Father No problems noted. Mother No problems noted. Unknown No pertinent family history Social History Smoking Status: Former smoker eating out: rarely or never Type(s) of exercise: walking, advised to exercise at least 150 min/week (moderate intensity aerobic) and advised to perform resistance training at least 2x/week Smoking Status: Former smoker alcohol intake frequency: a few times a week Substance Use Type: does not use Exam Initial Vital Signs Initial Vital Signs: Vital Signs Temperature 98.3 F 01/11/21 14:15 Pulse Rate 98 H 01/11/21 14:15 Respiratory Rate 20 01/11/21 14:15 Blood Pressure 155/73 H 01/11/21 14:15 Pulse Oximetry 99 01/11/21 14:15 Const General: cooperative, healthy appearing and comfortable HENMT Head: normal to inspection and normocephalic Resp Effort & Inspection: normal respiratory effort Cardio Pulses: dorsalis pedis present on the right Skin General: no rashes or lesions noted Neuro General: patient alert and patient awake Sensory Exam: no sensory deficits noted Extrem Other: No proximal fibula tenderness. No Achilles tenderness. No tenderness along the mediolateral malleolus. Does have tenderness along the dorsum of the right foot. Procedures Orthopedic Splinting/Casting Injury #1: Lower Extremity Injury Location: foot Lower Extremity Immobilizer: Joshua wrap Other Orthopedic Equipment: crutches Post splinting neuro exam: no change Post splinting vascular exam: no change Placed by: Nursing Course Orders Ordered: ED Orders 01/11/21 14:19 XR foot RT min 3V Stat Vital Signs Vital signs: Vital Signs - 8 hr 01/11/21 14:15 Temperature 98.3 F Pulse Rate 98 H Respiratory Rate 20 Blood Pressure 155/73 H Pulse Oximetry 99 MDM - Extremity Injury (Lower) Imaging Data Extremity x-ray #1: Radiologist's Impression: [address] [address] XRay Report Signed Patient: Paulina Skinner MR#: [id number] : 1975 Acct:[id number] Age/Sex: 45 / F Date of Service: 01/11/21 Loc: ED Accession Number: [id number] ?? Procedure: XR foot RT min 3V Ordering Provider: Cullen Martinez D.O. PROCEDURE:? XR FOOT RT MIN 3V ? INDICATIONS:? Metal chair fell on foot. Painful, non-weight bearing ? TECHNIQUE:? 3 views of the foot were acquired.? ? COMPARISON:? None. ? FINDINGS:? ? Bones:? No acute fractures or dislocations.? No suspicious bony lesions.? Plantar and posterior calcaneal enthesophytes are present.? ? Soft tissues:? No suspicious soft tissue calcification. ? ? IMPRESSION:? No acute osseous abnormality.? If clinical suspicion and/or symptoms persist, additional imaging with repeat plain films, or advanced imaging (e.g. CT, MRI) may be helpful for further assessment. ? ? Dictated by: Daniel Lebron M.D. on 01/11/2021 at 14:31 ? ? Approved by: Daniel Lebron M.D. on 01/11/2021 at 14:32?? MDM Narrative Medical decision making narrative: Neurovascular intact, no fractures noted on the x-rays, patient stated that she needs crutches because of the discomfort with standing. Will provide an Joshua bandage for comfort as well. She was given return precautions and follow-up instructions. She expressed understanding and agreement. Discharge Plan Departure Patient Disposition: Home Clinical Impression: Contusion of foot, right Instructions: How to Use Crutches, DI for Contusion, How To Perform RICE (Rest, Ice, Compress, Elevate) Activity Restrictions/Additional Instructions: There were no fractures noted on the x-rays. You can walk on your right foot as tolerated. Use the crutches for your comfort. Keep your foot elevated. You can take Tylenol/ibuprofen for any discomfort. Prescriptions: No Action triamcinolone acetonide 0.1 % cream See Rx Instructions topical BID Qty: 30 RF: 0 fexofenadine 180 mg tablet 180 mg PO QDAY Qty: 90 RF: 3 (DME) blood-glucose meter [Blood Glucose Monitoring] Kit See Rx Instructions .ROUTE .MEDSUPPLY Qty: 1 RF: 0 (DME) Blood Glucose Test Strip See Rx Instructions .ROUTE .MEDSUPPLY Qty: 100 RF: 5 (DME) lancets 30 gauge misc See Rx Instructions .ROUTE .MEDSUPPLY Qty: 100 RF: 5 duloxetine 60 mg capsule,delayed release(DR/EC) 60 mg PO DAILY Qty: 90 RF: 1 eletriptan 40 mg tablet See Rx Instructions PO .COMPLEX Qty: 14 RF: 5 Emgality Pen 120 mg/mL pen injector 120 mg SUBCUT QMONTH Qty: 1 RF: 12 Referrals: Phillip Nunez MD [Primary Care Provider] -
[2021-01-11 14:51] VITALS: BP 159/67; PULSE 95; RESP 12; O2SAT 97
== END 2021-01-11 14:53 | disposition home or self-care (01) ==
PROVIDERS: Emergency Provider Emergency Medicine; Family Provider Family Medicine; PCP Family Medicine
DX: S90.31XA Contusion of right foot, initial encounter (principal); W22.8XXA Striking against or struck by other objects, initial encounter
CPT/HCPCS: 73630; 99283

== ENCOUNTER → 2021-04-09 17:21 | Outpatient (CLI) | payer OTHER, MEDICAID, SELFPAY ==
--- NOTE | 2021-04-09 | DI.MG.S_ITS ---
BILATERAL DIGITAL SCREENING MAMMOGRAM 3D/2D WITH CAD: 04/09/2021 CLINICAL: Routine screening. Family history of breast cancer. Comparison is made to exams dated: 03/24/2020 mammogram, 07/05/2019 ultrasound, 07/05/2019 mammogram, and 03/21/2019 mammogram - [facility]. The tissue of both breasts is heterogeneously dense. This may lower the sensitivity of mammography. Current study was also evaluated with a Computer Aided Detection (CAD) system. No significant masses, calcifications, or other findings are seen in either breast. There has been no significant interval change. IMPRESSION: NEGATIVE There is no mammographic evidence of malignancy. A 1 year screening mammogram is recommended. This exam was interpreted at Station ID: [id number]. NOTE: For mammograms, a report in lay terms will be sent to the patient. Approximately 15% of breast malignancies will not be visualized mammographically. In the management of a palpable breast mass, a negative mammogram must not discourage biopsy of a clinically suspicious lesion. Electronically Signed By: Rio gunter/kellie:04/10/2021 08:03:25 letter sent: Normal Exam ACR BI-RADS Category 1: Negative [id number]
== END ==
PROVIDERS: Family Provider Family Medicine; PCP Family Medicine; Referring Provider Family Medicine; Visit Provider Family Medicine
DX: Z12.31 Encounter for screening mammogram for malignant neoplasm of breast (principal); Z80.3 Family history of malignant neoplasm of breast
CPT/HCPCS: 77063; 77067

== ENCOUNTER 2021-09-22 18:32 | Emergency (ER) | payer OTHER, MEDICAID, SELFPAY ==
[2021-09-22 18:39] VITALS: BP 166/70; PULSE 127; RESP 18; TEMP 38.4; O2SAT 95; BMI 42.5
[2021-09-22 18:54] VITALS: TEMP 38.4
[2021-09-22] MEDS: IBUPROFEN 400 MG TABLET 800 MG PO (18:54)
--- NOTE | 2021-09-22 18:55 | DI.RAD.S_ITS ---
PROCEDURE: XR CHEST 2V INDICATIONS: cough, fever TECHNIQUE: 2 views of the chest were acquired. COMPARISON: None. FINDINGS: Surgical changes and devices: None. Lungs and pleura: Small [place] in the right lung base concerning for pneumonia No pleural effusions or pneumothorax. Mediastinum: Mediastinal contours are normal. Heart size is normal. Bones and chest wall: No suspicious bony abnormalities. Soft tissues appear unremarkable. IMPRESSION: Small right basilar opacity suspicious for pneumonia. Dictated by: Tari Pacheco MD, PhD on 09/22/2021 at 19:16 Approved by: Tari Pacheco MD, PhD on 09/22/2021 at 19:16
[2021-09-22 20:26] LABS: Influenza A - CEPHEID Flu A NEGATIVE (NEGATIVE); Influenza B - CEPHEID Flu B NEGATIVE (NEGATIVE)
[2021-09-22 20:27] LABS: COVID-19 CEPHEID PCR (VTM/NP) Negative (Negative)
--- NOTE | 2021-09-22 21:09 | ED.GENADULT ---
HPI - General Adult General Chief complaint: Fever Stated complaint: Chest congestion, cough, chills, Fever 101.3F ache Time Seen by Provider: 09/22/21 21:06 Source: patient Mode of arrival: Wheelchair History of Present Illness HPI narrative: 45-year-old woman with history of fibromyalgia, chronic migraine, reflux, PCOS who presents with increasing cough for the last 24 hours today with temperatures up to 102. Last time she had these symptoms she had a bacterial pneumonia that did eventually resolve with antibiotics. She is vaccinated against COVID. She describes no vomiting abdominal pain diarrhea dysuria flank pain. She is not have any palpitations but notes that she has a chronically elevated heart rate typically just around 100. She notes that the cough is severe enough that is causing significant headache and she was not able to sleep well last night. She is in no respiratory distress able to speak in full sentences and there is no audible wheezing. She states in the past she has had an inhaler but has not needed to use 1 for over 6 years at this point. Related Data Home Medications Medication Instructions Recorded Confirmed galcanezumab-gnlm 120 mg/mL 1 mg SUBCUT Q30D 01/11/21 07/13/21 subcutaneous pen injector (Emgality Pen) glipizide 2.5 mg tablet, extended 2.5 mg PO DAILY 01/11/21 07/13/21 release 24 hr sumatriptan succinate 100 mg tablet 100 mg PO DAILY PRN 01/11/21 07/13/21 Previous Rx's Medication Instructions Recorded fexofenadine 180 mg tablet 180 mg PO QDAY #90 tab 09/19/18 eletriptan 40 mg tablet See Rx Instructions PO .COMPLEX 03/06/19 #14 tab galcanezumab-gnlm 120 mg/mL 120 mg SUBCUT QMONTH #1 ml 03/06/19 subcutaneous pen injector (Emgality Pen) blood sugar diagnostic (Blood #100 each 06/06/19 Glucose Test) blood-glucose meter (Blood Glucose #1 each 06/06/19 Monitoring) lancets 30 gauge #100 each 06/06/19 Ankle Brachial Index #1 ea 05/05/21 duloxetine 60 mg capsule,delayed See Rx Instructions .ROUTE 06/12/21 release .COMPLEX #90 each albuterol sulfate 90 mcg/actuation 2 inh INHALATION BID PRN #8.5 g 09/22/21 aerosol inhaler amoxicillin 500 mg capsule 500 mg PO TID #30 cap 09/22/21 benzonatate 200 mg capsule 200 mg PO BID-TID PRN #14 cap 09/22/21 doxycycline hyclate 100 mg capsule 100 mg PO BID #20 cap 09/22/21 Allergies Allergy/AdvReac Type Severity Reaction Status Date / Time azithromycin [AZITHROMYCIN] Allergy Severe PROBLEMS Verified 09/22/21 18:43 BREATHING furosemide [FUROSEMIDE] Allergy Severe breathing Verified 09/22/21 18:43 problems,hives gabapentin [GABAPENTIN] Allergy Severe breathing Verified 09/22/21 18:43 problems,hives hydrocodone [HYDROCODONE] Allergy Severe unknown Verified 09/22/21 18:43 iron [IRON] Allergy Severe Unknown Verified 09/22/21 18:43 levofloxacin [LEVOFLOXACIN] Allergy Severe unknown Verified 09/22/21 18:43 loratadine [LORATADINE] Allergy Severe unknown Verified 09/22/21 18:43 meperidine [MEPERIDINE] Allergy Severe unknown Verified 09/22/21 18:43 niacin [NIACIN] Allergy Severe unknown Verified 09/22/21 18:43 promethazine [PROMETHAZINE] Allergy Severe unknown Verified 09/22/21 18:43 pyridoxine [PYRIDOXINE] Allergy Severe unknown Verified 09/22/21 18:43 adhesive [ADHESIVE] Allergy Intermediate unknown Verified 09/22/21 18:43 ascorbic acid [ASCORBIC ACID] Allergy Intermediate Verified 09/22/21 18:43 tramadol [TRAMADOL] Allergy Intermediate Verified 09/22/21 18:43 latex [LATEX] Allergy Unknown Verified 09/22/21 18:43 sulfamethoxazole Allergy Unknown ITCHY Verified 09/22/21 18:43 [From Bactrim] THROAT trimethoprim [From Bactrim] Allergy Unknown ITCHY Verified 09/22/21 18:43 THROAT morphine AdvReac Migraines Verified 09/22/21 18:43 Review of Systems Review of Systems Narrative: Remainder of complete review of systems is otherwise unremarkable except for that included in the HPI. Patient History Medical History Anemia Anxiety Asthma Biceps tendinitis of left shoulder Cervical strain Chicken pox (~1983) CTS (carpal tunnel syndrome) Elevated blood pressure reading Hayfever Hypothyroidism (~2009) Increased wound drainage Measles (~1980) Migraine without aura and without status migrainosus, not intractable (~07/21/16) Migraines Morbid obesity due to excess calories (07/21/16) Multiple contusions PCOS (polycystic ovarian syndrome) Pharyngitis PTSD (post-traumatic stress disorder) Rib contusion Right groin hernia RLS (restless legs syndrome) Scoliosis Superficial incisional surgical site infection Type 2 diabetes mellitus without complication, without long-term current use of insulin (07/21/16) Surgical History Anesthesia History of left salpingo-oophorectomy (02/12/15) History of third molar tooth extraction (09/2001) History of third molar tooth extraction (06/30/06) S/P hysterectomy Status post breast reduction (11/10/95) Status post delivery (10/03/01) Status post tonsillectomy and adenoidectomy (1988) Family History Father No problems noted. Mother No problems noted. Unknown No pertinent family history Social History Smoking Status: Former smoker eating out: rarely or never Type(s) of exercise: walking, advised to exercise at least 150 min/week (moderate intensity aerobic) and advised to perform resistance training at least 2x/week Smoking Status: Former smoker alcohol intake frequency: a few times a week Substance Use Type: does not use Exam Initial Vital Signs Initial Vital Signs: Vital Signs Temperature 101.2 F H 09/22/21 18:39 Pulse Rate 127 H 09/22/21 18:39 Respiratory Rate 18 09/22/21 18:39 Blood Pressure 166/70 H 09/22/21 18:39 Pulse Oximetry 95 09/22/21 18:39 General: Nontoxic-appearing, dry cough in no acute distress. Able to give a complete and coherent history. Well-nourished well-developed HEENT: Moist mucous membranes, normal sclera with reactive pupils, no cervical adenopathy Respiratory: Lungs with mild rhonchi in the right base and right mid axillary line. Minimal wheezing appreciated however her dry cough sounds like there is some end expiratory wheeze. Full and symmetrical air movement. No accessory muscle use Cardiac: Mild tachycardia but otherwiseRegular rate and rhythm no murmurs no bruits Abdomen: Soft, nontender, good bowel tones, no flank pain Skin: Warm and dry, no rashes Neurologic: Grossly neurologically intact with no obvious asymmetries or abnormalities Extremities: No trauma, well perfused Psych: Cooperative, appropriate insight and affect Course Orders Ordered: ED Orders 09/22/21 18:55 XR chest 2V Stat 09/22/21 19:07 Covid-19 + FLU A/B by PCR Stat Discontinued Medications Ibuprofen (Ibuprofen 400 Mg Tablet) 800 mg PO NOW ONE Stop: 09/22/21 18:44 Last Admin: 09/22/21 18:54 Dose: 800 mg Documented by: NACHO Vital Signs Vital signs: Vital Signs - 8 hr 09/22/21 18:39 09/22/21 18:54 Temperature 101.2 F H 101.2 F H Pulse Rate 127 H Respiratory Rate 18 Blood Pressure 166/70 H Pulse Oximetry 95 Medical Decision Making Lab Data Labs: Lab Results 09/22/21 Range/Units 19:07 SARS-CoV-2 (PCR) Negative (Negative) Influenza A (RT-PCR) Flu a negative (NEGATIVE) Influenza B (RT-PCR) Flu b negative (NEGATIVE) Imaging Data Chest x-ray: Radiologist's Impression: FINDINGS:? ? Surgical changes and devices:? None.? ? Lungs and pleura:? Small Passy in the right lung base concerning for pneumonia No pleural effusions or pneumothorax.? ? Mediastinum:? Mediastinal contours are normal.? Heart size is normal.? ? Bones and chest wall:? No suspicious bony abnormalities.? Soft tissues appear unremarkable.? ? IMPRESSION:? Small right basilar opacity suspicious for pneumonia. ? ? Dictated by: Tari Pacheco MD, PhD on 09/22/2021 at 19:16 ? ? [facility] Narrative Medical decision making narrative: 45-year-old woman with 24 hours of increasing cough fevers to 101.2 nonproductive. No wheezing not complaining of significant dyspnea except for immediately post tussive. She states that she typically is tachycardic to 100. She does not appear toxic. She does have a clinical right lower lobe pneumonia on exam which is verified on chest x-ray. Oxygen saturations remain in the upper 90s. No evidence of COVID or influenza. At this point she has a clinical right lower lobe pneumonia and will be treated as such. With shared decision making we opted to not proceed with any additional blood work as it would not change course of action at this time. She will be given doxycycline and amoxicillin for 10 days. Prescription for Tessalon and a take-home pack of Percocet to help with sleep tonight and to use narcotic help cough suppressant. With the dry cough she may well find that she benefits from an inhaler and her last 1 a number of years ago will give her prescription for albuterol as well as spacer. Went over reasons for her to return to the emergency department. Questions are answered and she is safe for home discharge Discharge Plan Departure Patient Disposition: Home Clinical Impression: Bacterial pneumonia Instructions: DI for Pneumonia -- Adult Activity Restrictions/Additional Instructions: Thank you for coming in today Your COVID, influenza a and influenza B tests were negative. On clinical exam it does sound like your developing pneumonia in the right lower lobe. Your chest x-ray also suggests this. For outpatient treatment I am going to suggest 10 days of doxycycline along with 10 days of amoxicillin. Even as you are feeling better, please complete the entire course For cough you can use benzonatate/Tessalon Perles I have also given you a couple of tablets of Percocet to help with the pain from the cough as well as suppress the cough over the next 1-2 nights. In the past you said using an inhaler had been helpful. With the very dry and your cough I suspect that you may appreciate using 2 puffs of albuterol prior to bed to help with the cough as well. All prescriptions have been electronically transmitted to [facility] in [place] If you find that you are getting worse you do need to return to the emergency department. Prescriptions: New benzonatate 200 mg capsule 200 mg PO BID-TID PRN (Reason: cough) Qty: 14 0RF doxycycline hyclate 100 mg capsule 100 mg PO BID Qty: 20 0RF amoxicillin 500 mg capsule 500 mg PO TID Qty: 30 0RF albuterol sulfate 90 mcg/actuation HFA aerosol inhaler 2 inh inhalation BID PRN (Reason: shortness of breath or wheezing) Qty: 8.5 0RF Rx Instructions: please dispense with spacer and instuctions No Action (DME) Ankle Brachial Index See Rx Instructions .Route .MEDSUPPLY Qty: 1 0RF Rx Instructions: Ankle Brachial Index of both lower extremities. Absent pulse bilateral feet and right posterior tibial. Poorly controlled diabetes fexofenadine 180 mg tablet 180 mg PO QDAY Qty: 90 3RF (DME) blood-glucose meter [Blood Glucose Monitoring] Kit See Rx Instructions .ROUTE .MEDSUPPLY Qty: 1 0RF Rx Instructions: As directed to check blood sugar twice daily (DME) Blood Glucose Test Strip See Rx Instructions .ROUTE .MEDSUPPLY Qty: 100 5RF Rx Instructions: As directed twice daily for blood sugar testing (DME) lancets 30 gauge misc See Rx Instructions .ROUTE .MEDSUPPLY Qty: 100 5RF Rx Instructions: As directed twice daily for blood sugar testing duloxetine 60 mg capsule,delayed release(DR/EC) See Rx Instructions .ROUTE .COMPLEX Qty: 90 1RF Dose Instruction: Take 1 capsule by mouth once daily Rx Instructions: Take 1 capsule by mouth once daily sumatriptan succinate 100 mg tablet 100 mg PO DAILY PRN (Reason: Migraine Headache) 0RF Label Comments: TAKE 1 TABLET BY MOUTH AT FIRST ONSET OF MIGRAINE SYMPTOMS. MAY REPEAT AFTER 2 HOURS. MAX DOSE OF 200MG (2 TABLETS) EVERY 24 HOURS. UP TO 9 IN 28 DAYS. Rx Instructions: 9 tabs / month glipizide 2.5 mg tablet extended release 24hr 2.5 mg PO DAILY 0RF Label Comments: TAKE 1 TABLET BY MOUTH ONCE DAILY Emgality Pen 120 mg/mL pen injector 1 mg SUBCUT Q30D 0RF Label Comments: INJECT 1 ML UNDER THE SKIN ONCE EVERY 30 DAYS. eletriptan 40 mg tablet See Rx Instructions PO .COMPLEX Qty: 14 5RF Rx Instructions: take 1 tab at onset of headache; if no relief may repeat 1 tab in 2hr; max = 2 tabs/24 hrs PO Emgality Pen 120 mg/mL pen injector 120 mg SUBCUT QMONTH Qty: 1 12RF Referrals: Phillip Nunez MD [Primary Care Provider] -
[2021-09-22 21:46] VITALS: PULSE 112; O2SAT 95
[2021-09-22 22:00] VITALS: PULSE 109; O2SAT 94
[2021-09-22] MEDS: DOXYCYCLINE HYCLATE 100 MG TABLET PO (22:25)
[2021-09-22] MEDS: OXYCODONE/APAP 5/325 PREPACK 1 BOTTLE MISC (22:25)
[2021-09-22] MEDS: AMOXICILLIN 250 MG CAPSULE 500 MG PO (22:25)
[2021-09-22] MEDS: BENZONATATE 100 MG CAPSULE PO (22:25)
[2021-09-22] MEDS: OXYCODONE/ACETAMINOPHEN 5/325 TABLET 1 TAB PO (22:25)
[2021-09-22 22:28] VITALS: BP 158/99
== END 2021-09-22 22:29 | disposition home or self-care (01) ==
PROVIDERS: Emergency Provider Emergency Medicine; Family Provider Family Medicine; PCP Family Medicine
DX: J15.9 Unspecified bacterial pneumonia (principal); Z20.822 Contact with and (suspected) exposure to COVID-19
CPT/HCPCS: 71046; 87635; 99283; C9803

== ENCOUNTER 2021-10-06 20:53 | Emergency (ER) | payer OTHER, MEDICAID, SELFPAY ==
[2021-10-06 21:00] VITALS: BP 170/77; PULSE 104; RESP 20; TEMP 36.6; O2SAT 98; BMI 40.3
--- NOTE | 2021-10-06 21:08 | DI.RAD.S_ITS ---
PROCEDURE: XR FOOT RT MIN 3V INDICATIONS: possible fx per history and prvious x-rays TECHNIQUE: 3 views of the foot were acquired. COMPARISON: [facility], CR, XR FOOT RT MIN 3V, 01/11/2021, 14:20. FINDINGS: Bones: No fractures or dislocations. No suspicious bony lesions. Soft tissues: No tibiotalar joint effusion. Achilles tendon appears normal. IMPRESSION: 1. No fracture or dislocation. Dictated by: Brennan Hennessy M.D. on 10/06/2021 at 23:05 Approved by: Brennan Hennessy M.D. on 10/06/2021 at 23:06
--- NOTE | 2021-10-06 21:15 | PC.NURSE ---
pt was seen at [facility] for the same and was given a post op shoe to wear here today d/t continued pain
--- NOTE | 2021-10-06 23:16 | ED_ITS ---
HPI - Extremity Injury (Lower) General Chief Complaint: Extremity Injury, Lower Stated Complaint: rt foot injury on tuesday Time Seen by Provider: 10/06/21 21:15 Source: patient Mode of arrival: Wheelchair Limitations: no limitations History of Present Illness HPI Narrative: Patient is a 45-year-old female who approximately 3 days ago injured her right foot. She is playing a game with her family with an individual for family landed on the top of her right foot with his knee. Since that time she has had pain. Immediately afterwards she went to an outside emergency department and had x-rays performed. There was some concern about a fracture at the base of the 5th metatarsal although there was discussion that this could potentially be a normal variant. She did have some tenderness along this area but mostly the tenderness is on the top of her foot. She was placed in a walking shoe and was told to follow-up for symptoms did not improve. States since that time she has had bruising. Some tingling in her toes. Continue discomfort. She came to this emergency department for further evaluation. Related Data Home Medications Medication Instructions Recorded Confirmed galcanezumab-gnlm 120 mg/mL 1 mg SUBCUT Q30D 01/11/21 07/13/21 subcutaneous pen injector (Emgality Pen) glipizide 2.5 mg tablet, extended 2.5 mg PO DAILY 01/11/21 07/13/21 release 24 hr sumatriptan succinate 100 mg tablet 100 mg PO DAILY PRN Migraine 01/11/21 07/13/21 Headache Previous Rx's Medication Instructions Recorded fexofenadine 180 mg tablet 180 mg PO QDAY #90 tabs 09/19/18 eletriptan 40 mg tablet See Rx Instructions PO .COMPLEX 03/06/19 #14 tabs galcanezumab-gnlm 120 mg/mL 120 mg SUBCUT QMONTH #1 mL 03/06/19 subcutaneous pen injector (Emgality Pen) blood sugar diagnostic (Blood #100 ea 06/06/19 Glucose Test strips) blood-glucose meter (Blood Glucose #1 ea 06/06/19 Monitoring kit) lancets 30 gauge #100 ea 06/06/19 Ankle Brachial Index #1 ea 05/05/21 duloxetine 60 mg capsule,delayed See Rx Instructions .Route 06/12/21 release .COMPLEX #90 ea albuterol sulfate 90 mcg/actuation 2 inh inhalation BID PRN shortness 09/22/21 aerosol inhaler of breath or wheezing #8.5 grams amoxicillin 500 mg capsule 500 mg PO TID #30 caps 09/22/21 benzonatate 200 mg capsule 200 mg PO BID-TID PRN cough #14 09/22/21 caps doxycycline hyclate 100 mg capsule 100 mg PO BID #20 caps 09/22/21 Allergies Allergy/AdvReac Type Severity Reaction Status Date / Time azithromycin [AZITHROMYCIN] Allergy Severe PROBLEMS Verified 09/22/21 18:43 BREATHING furosemide [FUROSEMIDE] Allergy Severe breathing Verified 09/22/21 18:43 problems,hives gabapentin [GABAPENTIN] Allergy Severe breathing Verified 09/22/21 18:43 problems,hives hydrocodone [HYDROCODONE] Allergy Severe unknown Verified 09/22/21 18:43 iron [IRON] Allergy Severe Unknown Verified 09/22/21 18:43 levofloxacin [LEVOFLOXACIN] Allergy Severe unknown Verified 09/22/21 18:43 loratadine [LORATADINE] Allergy Severe unknown Verified 09/22/21 18:43 meperidine [MEPERIDINE] Allergy Severe unknown Verified 09/22/21 18:43 niacin [NIACIN] Allergy Severe unknown Verified 09/22/21 18:43 promethazine [PROMETHAZINE] Allergy Severe unknown Verified 09/22/21 18:43 pyridoxine [PYRIDOXINE] Allergy Severe unknown Verified 09/22/21 18:43 adhesive [ADHESIVE] Allergy Intermediate unknown Verified 09/22/21 18:43 ascorbic acid [ASCORBIC ACID] Allergy Intermediate Verified 09/22/21 18:43 tramadol [TRAMADOL] Allergy Intermediate Verified 09/22/21 18:43 latex [LATEX] Allergy Unknown Verified 09/22/21 18:43 sulfamethoxazole Allergy Unknown ITCHY Verified 09/22/21 18:43 [From Bactrim] THROAT trimethoprim [From Bactrim] Allergy Unknown ITCHY Verified 09/22/21 18:43 THROAT morphine AdvReac Migraines Verified 09/22/21 18:43 Review of Systems Musculoskeletal Musculoskeletal: Reports system reviewed and no additional complaints, except as documented Integumentary/Breasts Skin/Breast: Reports system reviewed and no additional complaints, except as documented Neurologic Neurologic: Reports system reviewed and no additional complaints, except as documented Patient History Medical History Anemia Anxiety Asthma Biceps tendinitis of left shoulder Cervical strain Chicken pox (~1983) CTS (carpal tunnel syndrome) Elevated blood pressure reading Hayfever Hypothyroidism (~2009) Increased wound drainage Measles (~1980) Migraine without aura and without status migrainosus, not intractable (~07/21/16) Migraines Morbid obesity due to excess calories (07/21/16) Multiple contusions PCOS (polycystic ovarian syndrome) Pharyngitis PTSD (post-traumatic stress disorder) Rib contusion Right groin hernia RLS (restless legs syndrome) Scoliosis Superficial incisional surgical site infection Type 2 diabetes mellitus without complication, without long-term current use of insulin (07/21/16) Surgical History Anesthesia History of left salpingo-oophorectomy (02/12/15) History of third molar tooth extraction (09/2001) History of third molar tooth extraction (06/30/06) S/P hysterectomy Status post breast reduction (11/10/95) Status post delivery (10/03/01) Status post tonsillectomy and adenoidectomy (1988) Family History Father No problems noted. Mother No problems noted. Unknown No pertinent family history Social History Smoking Status: Former smoker eating out: rarely or never Type(s) of exercise: walking, advised to exercise at least 150 min/week (moderate intensity aerobic) and advised to perform resistance training at least 2x/week Smoking Status: Former smoker alcohol intake frequency: a few times a week Substance Use Type: does not use Exam Initial Vital Signs Initial Vital Signs: Vital Signs Temperature 97.9 F 10/06/21 21:00 Pulse Rate 104 H 10/06/21 21:00 Respiratory Rate 20 10/06/21 21:00 Blood Pressure 170/77 H 10/06/21 21:00 Pulse Oximetry 98 10/06/21 21:00 Oxygen Delivery Method 10/06/21 21:00 Const General: cooperative and comfortable Cardio Pulses: dorsalis pedis present on the right Skin Other: Bruising at the base of the great 2nd and 3rd toes. Neuro Other: Tingling to the toes on the right foot. Extrem Other: Right ankle is unremarkable. She does have tenderness along the lateral aspect of the right foot however most of her discomfort is located on the dorsum of the right foot. No medial lateral malleolar tenderness. Course Orders Ordered: ED Orders 10/06/21 21:08 XR foot RT min 3V Stat Vital Signs Vital signs: Vital Signs - 8 hr 10/06/21 21:00 Temperature 97.9 F Pulse Rate 104 H Respiratory Rate 20 Blood Pressure 170/77 H Pulse Oximetry 98 Oxygen Delivery Method Room Air MDM - Extremity Injury (Lower) Imaging Data Extremity x-ray #1: Radiologist's Impression: [address] [address] XRay Report Signed Patient: Paulina Skinner MR#: [id number] : 1975 Acct:[id number] Age/Sex: 45 / F Date of Service: 10/06/21 Loc: ED Accession Number: [id number] ?? Procedure: XR foot RT min 3V Ordering Provider: Cullen Martinez D.O. PROCEDURE:? XR FOOT RT MIN 3V ? INDICATIONS:? possible fx per history and prvious x-rays ? TECHNIQUE:? 3 views of the foot were acquired.? ? COMPARISON:? [facility], , XR FOOT RT MIN 3V, 01/11/2021, 14:20. ? FINDINGS:? ? Bones:? No fractures or dislocations.? No suspicious bony lesions.? ? Soft tissues:? No tibiotalar joint effusion.? Achilles tendon appears normal.? ? ? IMPRESSION:? ? 1. No fracture or dislocation. ? ? Dictated by: Brennan Hennessy M.D. on 10/06/2021 at 23:05 ? ? Approved by: Brennan Hennessy M.D. on 10/06/2021 at 23:06? [facility] Narrative Medical decision making narrative: Patient is vascularly intact. Does have some tingling to the toes right foot. Some swelling to this area. The x-ray today shows no acute fractures. She does have some tenderness along the lateral aspect foot however the majority the discomfort is on the dorsum. Considered a Lisfranc injury however the mechanism is not consistent with this. Had a discussion with her regarding the x-rays today. I suspect the swelling is causing the tingling. Will have her continue to wear the orthopedic shoe for comfort. Discussed other conservative measures. I feel the hold on further radiologic studies for now. She was given return precautions. He expressed understanding and agreement. Discharge Plan Departure Patient Disposition: Home Clinical Impression: Contusion of foot, right Instructions: How To Perform RICE (Rest, Ice, Compress, Elevate) Activity Restrictions/Additional Instructions: You can continue to wear the hard sole shoe as needed for your comfort. The x- ray today did not show any overt fractures. Recommend he keep her foot elevated. Use ice. She can take Tylenol and ibuprofen for discomfort. Contact your primary doctor for follow-up. Prescriptions: No Action (DME) Ankle Brachial Index See Rx Instructions .Route .MEDSUPPLY Qty: 1 0RF Rx Instructions: Ankle Brachial Index of both lower extremities. Absent pulse bilateral feet and right posterior tibial. Poorly controlled diabetes fexofenadine 180 mg tablet 180 mg PO QDAY Qty: 90 3RF (DME) blood-glucose meter [Blood Glucose Monitoring] Kit See Rx Instructions .ROUTE .MEDSUPPLY Qty: 1 0RF Rx Instructions: As directed to check blood sugar twice daily (DME) Blood Glucose Test Strip See Rx Instructions .ROUTE .MEDSUPPLY Qty: 100 5RF Rx Instructions: As directed twice daily for blood sugar testing (DME) lancets 30 gauge misc See Rx Instructions .ROUTE .MEDSUPPLY Qty: 100 5RF Rx Instructions: As directed twice daily for blood sugar testing duloxetine 60 mg capsule,delayed release(DR/EC) See Rx Instructions .ROUTE .COMPLEX Qty: 90 1RF Dose Instruction: Take 1 capsule by mouth once daily Rx Instructions: Take 1 capsule by mouth once daily sumatriptan succinate 100 mg tablet 100 mg PO DAILY PRN (Reason: Migraine Headache) Label Comments: TAKE 1 TABLET BY MOUTH AT FIRST ONSET OF MIGRAINE SYMPTOMS. MAY REPEAT AFTER 2 HOURS. MAX DOSE OF 200MG (2 TABLETS) EVERY 24 HOURS. UP TO 9 IN 28 DAYS. Rx Instructions: 9 tabs / month glipizide 2.5 mg tablet extended release 24hr 2.5 mg PO DAILY Label Comments: TAKE 1 TABLET BY MOUTH ONCE DAILY Emgality Pen 120 mg/mL pen injector 1 mg SUBCUT Q30D Label Comments: INJECT 1 ML UNDER THE SKIN ONCE EVERY 30 DAYS. benzonatate 200 mg capsule 200 mg PO BID-TID PRN (Reason: cough) Qty: 14 0RF doxycycline hyclate 100 mg capsule 100 mg PO BID Qty: 20 0RF amoxicillin 500 mg capsule 500 mg PO TID Qty: 30 0RF albuterol sulfate 90 mcg/actuation HFA aerosol inhaler 2 inh inhalation BID PRN (Reason: shortness of breath or wheezing) Qty: 8.5 0RF Rx Instructions: please dispense with spacer and instuctions eletriptan 40 mg tablet See Rx Instructions PO .COMPLEX Qty: 14 5RF Rx Instructions: take 1 tab at onset of headache; if no relief may repeat 1 tab in 2hr; max = 2 tabs/24 hrs PO Emgality Pen 120 mg/mL pen injector 120 mg SUBCUT QMONTH Qty: 1 12RF Referrals: Phillip Nunez MD [Primary Care Provider] - Visit Report Forms: Patient Portal/API
== END 2021-10-06 23:26 | disposition home or self-care (01) ==
PROVIDERS: Emergency Provider Emergency Medicine; Family Provider Family Medicine; PCP Family Medicine
DX: S90.31XA Contusion of right foot, initial encounter (principal); W19.XXXA Unspecified fall, initial encounter
CPT/HCPCS: 73630; 99283

== ENCOUNTER → 2022-05-19 07:59 | Outpatient (CLI) | payer OTHER, MEDICAID, SELFPAY ==
--- NOTE | 2022-05-19 | DI.MG.S_ITS ---
BILATERAL DIGITAL SCREENING MAMMOGRAM 3D/2D WITH CAD: 05/19/2022 CLINICAL: Routine screening. Family history of breast cancer. Comparison is made to exams dated: 04/09/2021 mammogram, 03/24/2020 mammogram, and 03/21/2019 mammogram - [facility]. Both breasts are heterogeneously dense, which may obscure small masses (category c / 51-75% glandular tissue). Current study was also evaluated with a Computer Aided Detection (CAD) system. No significant masses, calcifications, or other findings are seen in either breast. There has been no significant interval change. IMPRESSION: NEGATIVE There is no mammographic evidence of malignancy. A 1 year screening mammogram is recommended. This exam was interpreted at Station ID: [id number]. NOTE: For mammograms, a report in lay terms will be sent to the patient. Approximately 15% of breast malignancies will not be visualized mammographically. In the management of a palpable breast mass, a negative mammogram must not discourage biopsy of a clinically suspicious lesion. Electronically Signed By: Mesfin velazquez/kellie:05/19/2022 13:01:38 letter sent: Normal Exam ACR BI-RADS Category 1: Negative [id number]
== END ==
PROVIDERS: Family Provider Family Medicine; PCP Family Medicine; Referring Provider Family Medicine; Visit Provider Family Medicine
DX: Z12.31 Encounter for screening mammogram for malignant neoplasm of breast (principal); Z80.3 Family history of malignant neoplasm of breast
CPT/HCPCS: 77063; 77067

== ENCOUNTER 2022-07-05 22:13 | Emergency (ER) | payer OTHER, MEDICAID, SELFPAY ==
[2022-07-05 22:31] VITALS: BP 180/85; PULSE 99; RESP 16; TEMP 36.5; O2SAT 98; BMI 38.9
== END 2022-07-06 01:13 | disposition left against medical advice (07) ==
PROVIDERS: Emergency Provider Emergency Medicine; Family Provider Family Medicine; PCP Family Medicine
CPT/HCPCS: 99281

== ENCOUNTER → 2022-08-11 14:41 | Outpatient (CLI) | payer OTHER, MEDICAID, SELFPAY | PROVIDERS: Family Provider Family Medicine; PCP Family Medicine; Visit Provider Nurse Practitioner Family | DX: J02.9 Acute pharyngitis, unspecified (principal) | CPT/HCPCS: 87070 ==

== ENCOUNTER → 2023-01-31 11:39 | Outpatient (CLI) | payer OTHER, MEDICAID, SELFPAY ==
--- NOTE | 2023-01-31 12:04 | DI.RAD.S_ITS ---
PROCEDURE: XR KNEE RT 3V INDICATIONS: rt knee TECHNIQUE: 3 views of the knee were acquired. COMPARISON: [facility], , KNEE 3V LEFT, 09/20/2013, 10:28. FINDINGS: Bones: No suspicious bony lesions. Early degenerative changes most notable in the medial compartment. There is an appearance of mild calcification along the lateral femoral condyle. Soft tissues: Prominent joint effusion. No suspicious soft tissue calcifications. IMPRESSION: Prominent effusion. Calcification is noted adjacent to the lateral femoral condyle possibly representing avulsion fracture. Dictated by: Angie Maloney M.D. on 01/31/2023 at 15:31 Approved by: Angie Maloney M.D. on 01/31/2023 at 15:32
[2023-01-31 12:29] LABS: Add Manual Diff / Slide Review NO; Basophils Absolute Auto 100 /uL (0-100); Basophils Percent Auto 0.8 % (0-2); Eosinophils Absolute Auto 300 /uL (0-450); Eosinophils Percent Auto 3.7 % (2-4); Hematocrit 42.7 % (36-46); Hemoglobin 14.7 g/dL (12.0-16.0); Lymphocytes Absolute Auto 1700 /uL (1100-4500); Lymphocytes Percent Auto 22.8 % (25-40); Mean Corpuscular HGB Conc 34.4 % (30-36); Mean Corpuscular Hemoglobin 27.8 PG (26-34); Mean Corpuscular Volume 80.8 fL (80-100); Monocytes Absolute Auto 300 /uL (0-900); Monocytes Percent Auto 3.6 % (3-14); Neutrophils Absolute Auto 5100 /uL (1500-7000); Neutrophils Percent Auto 69.1 % (50-75); Platelet Count 253 X10^3/uL (150-400); Red Blood Cell Count 5.29 X10^6/uL (4.0-5.2); Red Cell Distribution Width 14.3 % (11.6-14.8); White Blood Cell Count 7.4 X10^3/uL (4.5-11.0)
[2023-01-31 12:35] LABS: Alanine Aminotransferase 21 IU/L (<35); Albumin 4.1 g/dL (3.5-5.0); Albumin Globulin Ratio 1.5 (1.0-2.8); Alkaline Phosphatase 74 U/L (38-126); Aspartate Aminotransferase 20 IU/L (14-36); BUN Creatinine Ratio 18.8 (6-22); Bilirubin Total 0.8 mg/dL (0.2-1.3); Blood Urea Nitrogen 9 mg/dL (7-17); Calcium 9.7 mg/dL (8.4-10.2); Carbon Dioxide 30 mmol/L (22-32); Chloride 101 mmol/L (98-107); Cholesterol 206 mg/dL (140-199); Estimated Glomerular Filt Rate > 60 mL/min (>60); Globulin 2.7 g/dL (1.7-4.1); Glucose 126 mg/dL (70-100); HDL Cholesterol 37 mg/dL (40-60); HEMOLYSIS < 15 (0-50); LDL Cholesterol Calculated 144 mg/dL (<100); Potassium 4.2 mmol/L (3.4-5.1); Sodium 137 mmol/L (137-145); Total Protein 6.8 g/dL (6.3-8.2); Triglycerides 126 mg/dL (35-150)
[2023-01-31 12:44] LABS: Hemoglobin A1C% w Est Avg Glu 6.5 % (4.0-6.0)
== END ==
PROVIDERS: Family Provider Family Medicine; PCP Family Medicine; Referring Provider Family Medicine; Visit Provider Family Medicine
DX: E11.65 Type 2 diabetes mellitus with hyperglycemia (principal); M25.569 Pain in unspecified knee
CPT/HCPCS: 36415; 73562; 80053; 80061; 83036; 85025

== ENCOUNTER 2023-01-31 14:15 | Outpatient (RCR) | payer OTHER, MEDICAID, SELFPAY ==
--- NOTE | 2022-12-20 08:56 | PT.OIE ---
Current Diagnoses Pain in right knee (12/21/22) Past Medical History (Last Updated 09/22/22 @ 17:46 by Rico Talbot LPN) Anemia Anxiety Asthma Biceps tendinitis of left shoulder Cervical strain Chicken pox (~1983) CTS (carpal tunnel syndrome) Elevated blood pressure reading Hayfever Hypothyroidism (~2009) Increased wound drainage Measles (~1980) Migraine without aura and without status migrainosus, not intractable (~07/21/16) Migraines Morbid obesity due to excess calories (07/21/16) Multiple contusions PCOS (polycystic ovarian syndrome) Pharyngitis PTSD (post-traumatic stress disorder) Rib contusion Right groin hernia RLS (restless legs syndrome) Scoliosis Superficial incisional surgical site infection Type 2 diabetes mellitus without complication, without long-term current use of insulin (07/21/16) Past Surgical History (Last Reviewed 09/22/21 @ 22:13 by Grisel Lowe MD) Anesthesia History of left salpingo-oophorectomy (02/12/15) History of third molar tooth extraction (09/2001) History of third molar tooth extraction (06/30/06) S/P hysterectomy Status post breast reduction (11/10/95) Status post delivery (10/03/01) Status post tonsillectomy and adenoidectomy (1988) Visit Care Team Role Provider Type Phillip Nunez MD Attending Provider Physician Family Provider Primary Care Provider Referring Provider Specialty: Family Practice Address: [address] [place] [address] Email: [email or web address] Physical Therapy Initial Evaluation PT-OP-A Visit Information Start: 12/20/22 16:43 Freq: Status: Active Protocol: Document 12/21/22 08:56 AM (Rec: 12/21/22 14:09 AM [id number]) Out-Patient Physical Therapy Visit Information Visit Information Visit Type Initial Evaluation Visit Note *2 unit visits for 12 visits 0 Visit Start Time 09:04 Visit Stop Time 09:46 Total Visit Minutes 42 Visit Number 1 Number of [employer] Visits 0 Evaluation Information Evaluation Date 12/21/22 Precautions Precautions latex allergy PT-OP-B Current Condition Start: 12/20/22 16:43 Freq: Status: Active Protocol: Document 12/21/22 08:56 AM (Rec: 12/21/22 14:09 AM [id number]) Current Condition History of Current Condition Onset Date [id number] Current Complaints R knee pain History of Current Condition Pt reports that she has fractured bilateral patella. Pt reports that she has had frequent falls. Pt reports history of frequent falls and does not know why she has been falling so much. Pt reports that she fallen 20 times this year. Pt reports that she is going to be meeting with neurologist regarding headaches soon and will discuss fall hx with him. Pt reports that sometimes she trips, sometimes she gets lightheaded and falls, has fallen on the ice. Fall reasons are variable. Pt also reports that she has fibromyalgia and pain at multiple joints. Prior Treatments and Tests Pt denies previous PT for knee . She has worn a knee brace in the past. Prior Functional Status Baseline Function- ADL's Independent Baseline Function- Mobility Independent Current Functional Impairments (Reported) Functional Limitations- ADL's Pt reports that she has help from her with cleaning and cooking tasks. Pt reports difficulty with prolonged standing. Pt reports that she is able to stand for about 20 mins. Functional Limitations- Mobility/Gait Pt with frequent falls with walking. Pt with pain with walking. Functional Limitations- Recreation/ Pt reports difficulty with Hobbies swimming secondary to knee pain PT-OP-C Subjective Start: 12/20/22 16:43 Freq: Status: Active Protocol: Document 12/21/22 08:56 AM (Rec: 12/21/22 14:09 AM [id number]) Patient Questionnaires Lower Extremity Functional Scale LEFS Score 15 LEFS Impairment 80 to 99% Impaired (Score 1-16 ) OP-PT Pain Assessment Pain Assessment Grid Paper Pain Assessment Grid Completed Yes Location Right Knee Pain Location Details R anterior knee, patellar pain , occasionally at posterior knee Intensity 8 Scale Used Numeric (0 - 10) Description Acute,Sharp Description- Other Pt reports 9/10 pain at the worst Frequency Constant Pain Aggravating Factors ADL's,Activity,Exercise, Standing,Walking,Stair Climbing,Bending,Lifting Pain Alleviating Factors Cold,Heat,Rest Other Pain Alleviating Factors neoprene knee brace Home Pain Medication Use Pain Medications Used No PT-OP-D Balance Start: 12/20/22 16:43 Freq: Status: Active Protocol: Document 12/21/22 08:56 AM (Rec: 12/21/22 14:09 AM [id number]) Balance Tests Single Limb Standing Single Limb- Right 15 Single Limb- Left 15 PT-OP-E Functional Tests Start: 12/20/22 16:43 Freq: Status: Active Protocol: Document 12/21/22 08:56 AM (Rec: 12/21/22 14:09 AM [id number]) Functional Tests Five Times Sit to Stand Test Score 19.28 Comments painful PT-OP-F Manual Assessment Start: 12/20/22 16:43 Freq: Status: Active Protocol: Document 12/21/22 08:56 AM (Rec: 12/21/22 14:09 AM [id number]) Manual Assessments Joint Mobility Assessment Joint Mobility Assessment Hypomobility at José Manuel patella PT-OP-G Mobility & Gait Start: 12/20/22 16:43 Freq: Status: Active Protocol: Document 12/21/22 08:56 AM (Rec: 12/21/22 14:09 AM [id number]) OP Gait Assessment Gait Gait Assistance Required: Independent Assistive Devices Assistive Device None Gait Deviations General Gait Pattern Antalgic PT-OP-J Posture/Palpation/Skin Start: 12/20/22 16:43 Freq: Status: Active Protocol: Document 12/21/22 08:56 AM (Rec: 12/21/22 14:09 AM [id number]) Posture Evaluation Position Standing Knee Posture (L) Neutral,(R) Neutral Palpation Assessment Location Right knee Palpation Location R quads, HS Palpation Findings Soft Tissue Tightness,Muscle Guarding,Tenderness PT-OP-K Range of Motion Start: 12/20/22 16:43 Freq: Status: Active Protocol: Document 12/21/22 08:56 AM (Rec: 12/21/22 14:09 AM [id number]) Knee Goniometric Range of Motion Knee Left Knee ROM WFL No Patient Position Supine Flexion Active (degrees) 125 Extension Active (degrees) 0 Comments Hamstring 90/90: 45 deg Right Knee ROM WFL No Patient Position Supine Flexion Active (degrees) 114 Extension Active (degrees) 0 Comments hamstring 90/90 40 deg PT-OP-M Strength Start: 12/20/22 16:43 Freq: Status: Active Protocol: Document 12/21/22 08:56 AM (Rec: 12/21/22 14:09 AM [id number]) Hip Strength Hip Manual Muscle Testing Left Flexion (L2) 4- Good- Abduction 3+ Fair+ Right Flexion (L2) 4- Good- Abduction 3+ Fair+ Knee Strength Knee Manual Muscle Testing Left Flexion (S2) 4- Good- Extension (L3) 4- Good- Right Flexion (S2) 4- Good- Extension (L3) 4- Good- PT-OP-Q Treatments Start: 12/20/22 16:43 Freq: Status: Active Protocol: Document 12/21/22 08:56 AM (Rec: 12/21/22 14:09 AM [id number]) Therapeutic Exercises Supine Exercises SLR Supine Exercise Name SLR Side right Reps/Minutes x5 Quad sets Supine Exercise Name Quad sets Side right Equipment Used Towel under knee Reps/Minutes 5x5 sec Sidelying Exercises Clamshells Side right Reps/Minutes x10 PT-OP-T Assessment and Plan Start: 12/20/22 16:43 Freq: Status: Active Protocol: Document 12/21/22 08:56 AM (Rec: 12/21/22 14:09 AM [id number]) Physical Therapy Assessment Rehab Potential Rehabilitation Potential Good Evaluation Complexity Number of Personal Factors/Comorbidities 1-2 Number of Body Systems Impaired 1-2 Clinical Presentation at Evaluation Stable Impairments Impairments Activity Tolerance,Balance, Functional Activities, Functional Mobility,Gait,Pain, Posture,ROM,Soft Tissue Mobility,Strength Goals Swimming Impairment Pt unable to swim secondary to increase in knee pain. Legal Contracts Specialist Goal (LTG) Pt able to swim without increase in knee pain. LTG Duration 02/01/23 Strength Impairment Knee strength Impairment Pt with 4-/5 knee strength Short Term Goal (STG) Pt with R knee strength grossly at 4/5. STG Duration 01/11/23 Legal Contracts Specialist Goal (LTG) Pt with R knee strength grossly at 4+/5 LTG Duration 02/01/23 Walking ability Impairment Pain with ambulating Impairment Pt reports that she is only able to ambulate for 5 min at a time secondary to knee pain. Short Term Goal (STG) Pt able to ambulate for 15 min without need to stop secondary to R knee pain. STG Duration 01/11/23 Long-Term Goal (LTG) Pt able to ambulate for 30 min without need to stop secondary to R knee pain. LTG Duration 02/01/23 LEFS Impairment LEFS score Impairment Pt had a score of 15/80 on LEFS Short Term Goal (STG) Pt with score of 35/80 in LEFS STG Duration 01/11/23 Legal Contracts Specialist Goal (LTG) Pt with score of 50/80 on LEFS LTG Duration 02/01/23 Pain Impairment Pain rating Impairment Pt reports pain at 9/10 at the highest at her R knee. Short Term Goal (STG) Pt to report pain at 5/10 at the highest. STG Duration 01/11/23 Long-Term Goal (LTG) Pt to report pain at 3/10 at the highest. LTG Duration 02/01/23 Assessment Summary Assessment Paulina Skinner presents to PT to address R knee pain. Pt reports hx of frequent falls with 20 falls in the last year . Pt able to demonstrate SLS for 15 seconds on B LE, will assess dynamic balance and higher level balance challenges at future visits. Pt demonstrates hypomobility at josé manuel patella. Pt with stiffness at hip flexors and hamstrings with manual stretching. Pt demonstrates weakness at R glute med, HS and quads. Pt demonstrates antalgic gait pattern, reporting pain at josé manuel hips and ankles as well as josé manuel knees. Pt will benefit from continued PT to progress LE strength and mobility to improve tolerance to functional tasks. Physical Therapy Plan Frequency and Duration Frequency of Treatment 2x/Week Duration of treatment (weeks) 6 Plan of Care Start Date 12/21/22 Plan of Care End Date 02/01/23 Therapeutic Interventions Therapeutic Interventions Balance Training,Gait Training ,Home Exercise Program,Joint Mobilizations,Manual Therapy, Neuromuscular Re-education, Patient/Caregiver Education, Self-Care/Home Management,Soft Tissue Mobilization, Therapeutic Activities, Therapeutic Exercises Modalities Cold Pack/Ice Massage,Electric Stimulation,Hot Packs, Ultrasound Next Visit Focus/Plan Next Note Type Treatment Note Next Visit Plan assess dynamic and higher level balance challenges, initiate manual to decrease knee pain, reuben stretch, progress LE strength *2 unit visits for 12 visits
--- NOTE | 2022-12-21 08:56 | PT.OIE ---
Addendum entered and electronically signed by Randee Charles PT 12/22/22 16:51: *2 unit visits Original Note: Current Diagnoses Pain in right knee (12/21/22) Past Medical History (Last Updated 09/22/22 @ 17:46 by Rico Talbot LPN) Anemia Anxiety Asthma Biceps tendinitis of left shoulder Cervical strain Chicken pox (~1983) CTS (carpal tunnel syndrome) Elevated blood pressure reading Hayfever Hypothyroidism (~2009) Increased wound drainage Measles (~1980) Migraine without aura and without status migrainosus, not intractable (~07/21/16) Migraines Morbid obesity due to excess calories (07/21/16) Multiple contusions PCOS (polycystic ovarian syndrome) Pharyngitis PTSD (post-traumatic stress disorder) Rib contusion Right groin hernia RLS (restless legs syndrome) Scoliosis Superficial incisional surgical site infection Type 2 diabetes mellitus without complication, without long-term current use of insulin (07/21/16) Past Surgical History (Last Reviewed 09/22/21 @ 22:13 by Grisel Lowe MD) Anesthesia History of left salpingo-oophorectomy (02/12/15) History of third molar tooth extraction (09/2001) History of third molar tooth extraction (06/30/06) S/P hysterectomy Status post breast reduction (11/10/95) Status post delivery (10/03/01) Status post tonsillectomy and adenoidectomy (1988) Visit Care Team Role Provider Type Phillip Nunez MD Attending Provider Physician Family Provider Primary Care Provider Referring Provider Specialty: [facility] Address: [address] [place] [address], [facility] Email: [email or web address] Physical Therapy Initial Evaluation PT-OP-A Visit Information Start: 12/20/22 16:43 Freq: Status: Active Protocol: Document 12/21/22 08:56 AM (Rec: 12/21/22 14:09 AM [id number]) Out-Patient Physical Therapy Visit Information Visit Information Visit Type Initial Evaluation Visit Start Time 09:04 Visit Stop Time 09:46 Total Visit Minutes 42 Visit Number 1 Number of REGIONAL CRA Visits 0 Evaluation Information Evaluation Date 12/21/22 Precautions Precautions latex allergy PT-OP-B Current Condition Start: 12/20/22 16:43 Freq: Status: Active Protocol: Document 12/21/22 08:56 AM (Rec: 12/21/22 14:09 AM [id number]) Current Condition History of Current Condition Onset Date [id number] Current Complaints R knee pain History of Current Condition Pt reports that she has fractured bilateral patella. Pt reports that she has had frequent falls. Pt reports history of frequent falls and does not know why she has been falling so much. Pt reports that she fallen 20 times this year. Pt reports that she is going to be meeting with neurologist regarding headaches soon and will discuss fall hx with him. Pt reports that sometimes she trips, sometimes she gets lightheaded and falls, has fallen on the ice. Fall reasons are variable. Pt also reports that she has fibromyalgia and pain at multiple joints. Prior Treatments and Tests Pt denies previous PT for knee . She has worn a knee brace in the past. Prior Functional Status Baseline Function- ADL's Independent Baseline Function- Mobility Independent Current Functional Impairments (Reported) Functional Limitations- ADL's Pt reports that she has help from her with cleaning and cooking tasks. Pt reports difficulty with prolonged standing. Pt reports that she is able to stand for about 20 mins. Functional Limitations- Mobility/Gait Pt with frequent falls with walking. Pt with pain with walking. Functional Limitations- Recreation/ Pt reports difficulty with Hobbies swimming secondary to knee pain PT-OP-C Subjective Start: 12/20/22 16:43 Freq: Status: Active Protocol: Document 12/21/22 08:56 AM (Rec: 12/21/22 14:09 AM [id number]) Patient Questionnaires Lower Extremity Functional Scale LEFS Score 15 LEFS Impairment 80 to 99% Impaired (Score 1-16 ) OP-PT Pain Assessment Pain Assessment Grid Paper Pain Assessment Grid Completed Yes Location Right Knee Pain Location Details R anterior knee, patellar pain , occasionally at posterior knee Intensity 8 Scale Used Numeric (0 - 10) Description Acute,Sharp Description- Other Pt reports 9/10 pain at the worst Frequency Constant Pain Aggravating Factors ADL's,Activity,Exercise, Standing,Walking,Stair Climbing,Bending,Lifting Pain Alleviating Factors Cold,Heat,Rest Other Pain Alleviating Factors neoprene knee brace Home Pain Medication Use Pain Medications Used No PT-OP-D Balance Start: 12/20/22 16:43 Freq: Status: Active Protocol: Document 12/21/22 08:56 AM (Rec: 12/21/22 14:09 AM [id number]) Balance Tests Single Limb Standing Single Limb- Right 15 Single Limb- Left 15 PT-OP-E Functional Tests Start: 12/20/22 16:43 Freq: Status: Active Protocol: Document 12/21/22 08:56 AM (Rec: 12/21/22 14:09 AM [id number]) Functional Tests Five Times Sit to Stand Test Score 19.28 Comments painful PT-OP-F Manual Assessment Start: 12/20/22 16:43 Freq: Status: Active Protocol: Document 12/21/22 08:56 AM (Rec: 12/21/22 14:09 AM [id number]) Manual Assessments Joint Mobility Assessment Joint Mobility Assessment Hypomobility at José Manuel patella PT-OP-G Mobility & Gait Start: 12/20/22 16:43 Freq: Status: Active Protocol: Document 12/21/22 08:56 AM (Rec: 12/21/22 14:09 AM [id number]) OP Gait Assessment Gait Gait Assistance Required: Independent Assistive Devices Assistive Device None Gait Deviations General Gait Pattern Antalgic PT-OP-J Posture/Palpation/Skin Start: 12/20/22 16:43 Freq: Status: Active Protocol: Document 12/21/22 08:56 AM (Rec: 12/21/22 14:09 AM [id number]) Posture Evaluation Position Standing Knee Posture (L) Neutral,(R) Neutral Palpation Assessment Location Right knee Palpation Location R quads, HS Palpation Findings Soft Tissue Tightness,Muscle Guarding,Tenderness PT-OP-K Range of Motion Start: 12/20/22 16:43 Freq: Status: Active Protocol: Document 12/21/22 08:56 AM (Rec: 12/21/22 14:09 AM [id number]) Knee Goniometric Range of Motion Knee Left Knee ROM WFL No Patient Position Supine Flexion Active (degrees) 125 Extension Active (degrees) 0 Comments Hamstring 90/90: 45 deg Right Knee ROM WFL No Patient Position Supine Flexion Active (degrees) 114 Extension Active (degrees) 0 Comments hamstring 90/90 40 deg PT-OP-M Strength Start: 12/20/22 16:43 Freq: Status: Active Protocol: Document 12/21/22 08:56 AM (Rec: 12/21/22 14:09 AM [id number]) Hip Strength Hip Manual Muscle Testing Left Flexion (L2) 4- Good- Abduction 3+ Fair+ Right Flexion (L2) 4- Good- Abduction 3+ Fair+ Knee Strength Knee Manual Muscle Testing Left Flexion (S2) 4- Good- Extension (L3) 4- Good- Right Flexion (S2) 4- Good- Extension (L3) 4- Good- PT-OP-Q Treatments Start: 12/20/22 16:43 Freq: Status: Active Protocol: Document 12/21/22 08:56 AM (Rec: 12/21/22 14:09 AM [id number]) Therapeutic Exercises Supine Exercises SLR Supine Exercise Name SLR Side right Reps/Minutes x5 Quad sets Supine Exercise Name Quad sets Side right Equipment Used Towel under knee Reps/Minutes 5x5 sec Sidelying Exercises Clamshells Side right Reps/Minutes x10 PT-OP-T Assessment and Plan Start: 12/20/22 16:43 Freq: Status: Active Protocol: Document 12/21/22 08:56 AM (Rec: 12/21/22 14:09 AM [id number]) Physical Therapy Assessment Rehab Potential Rehabilitation Potential Good Evaluation Complexity Number of Personal Factors/Comorbidities 1-2 Number of Body Systems Impaired 1-2 Clinical Presentation at Evaluation Stable Impairments Impairments Activity Tolerance,Balance, Functional Activities, Functional Mobility,Gait,Pain, Posture,ROM,Soft Tissue Mobility,Strength Goals Swimming Impairment Pt unable to swim secondary to increase in knee pain. Physics Department Chair Goal (LTG) Pt able to swim without increase in knee pain. LTG Duration 02/01/23 Strength Impairment Knee strength Impairment Pt with 4-/5 knee strength Short Term Goal (STG) Pt with R knee strength grossly at 4/5. STG Duration 01/11/23 Physics Department Chair Goal (LTG) Pt with R knee strength grossly at 4+/5 LTG Duration 02/01/23 Walking ability Impairment Pain with ambulating Impairment Pt reports that she is only able to ambulate for 5 min at a time secondary to knee pain. Short Term Goal (STG) Pt able to ambulate for 15 min without need to stop secondary to R knee pain. STG Duration 01/11/23 Physics Department Chair Goal (LTG) Pt able to ambulate for 30 min without need to stop secondary to R knee pain. LTG Duration 02/01/23 LEFS Impairment LEFS score Impairment Pt had a score of 15/80 on LEFS Short Term Goal (STG) Pt with score of 35/80 in LEFS STG Duration 01/11/23 Snf Goal (LTG) Pt with score of 50/80 on LEFS LTG Duration 02/01/23 Pain Impairment Pain rating Impairment Pt reports pain at 9/10 at the highest at her R knee. Short Term Goal (STG) Pt to report pain at 5/10 at the highest. STG Duration 01/11/23 Physics Department Chair Goal (LTG) Pt to report pain at 3/10 at the highest. LTG Duration 02/01/23 Assessment Summary Assessment Paulina Skinner presents to PT to address R knee pain. Pt reports hx of frequent falls with 20 falls in the last year . Pt able to demonstrate SLS for 15 seconds on B LE, will assess dynamic balance and higher level balance challenges at future visits. Pt demonstrates hypomobility at josé manuel patella. Pt with stiffness at hip flexors and hamstrings with manual stretching. Pt demonstrates weakness at R glute med, HS and quads. Pt demonstrates antalgic gait pattern, reporting pain at josé manuel hips and ankles as well as josé manuel knees. Pt will benefit from continued PT to progress LE strength and mobility to improve tolerance to functional tasks. Physical Therapy Plan Frequency and Duration Frequency of Treatment 2x/Week Duration of treatment (weeks) 6 Plan of Care Start Date 12/21/22 Plan of Care End Date 02/01/23 Therapeutic Interventions Therapeutic Interventions Balance Training,Gait Training ,Home Exercise Program,Joint Mobilizations,Manual Therapy, Neuromuscular Re-education, Patient/Caregiver Education, Self-Care/Home Management,Soft Tissue Mobilization, Therapeutic Activities, Therapeutic Exercises Modalities Cold Pack/Ice Massage,Electric Stimulation,Hot Packs, Ultrasound Next Visit Focus/Plan Next Note Type Treatment Note Next Visit Plan assess dynamic and higher level balance challenges, initiate manual to decrease knee pain, reuben stretch, progress LE strength
--- NOTE | 2022-12-21 08:56 | PT.OPPOC ---
Physical, Occupational & Speech Therapy At [facility] Current Diagnoses Pain in right knee (12/21/22) Visit Care Team Role Provider Type Phillip Nunez MD Attending Provider Physician Family Provider Primary Care Provider Referring Provider Specialty: Family Practice Address: [address] [place] [address], [phone] Email: [email or web address] Plan Of Care PT-OP-T Assessment and Plan Start: 12/20/22 16:43 Freq: Status: Active Protocol: Document 12/21/22 08:56 AM (Rec: 12/21/22 14:09 AM [id number]) Physical Therapy Assessment Rehab Potential Rehabilitation Potential Good Evaluation Complexity Number of Personal Factors/Comorbidities 1-2 Number of Body Systems Impaired 1-2 Clinical Presentation at Evaluation Stable Impairments Impairments Activity Tolerance,Balance, Functional Activities, Functional Mobility,Gait,Pain, Posture,ROM,Soft Tissue Mobility,Strength Goals Swimming Impairment Pt unable to swim secondary to increase in knee pain. [employer] Decorator Goal (LTG) Pt able to swim without increase in knee pain. LTG Duration 02/01/23 Strength Impairment Knee strength Impairment Pt with 4-/5 knee strength Short Term Goal (STG) Pt with R knee strength grossly at 4/5. STG Duration 01/11/23 [employer] Cake Decorator Goal (LTG) Pt with R knee strength grossly at 4+/5 LTG Duration 02/01/23 Walking ability Impairment Pain with ambulating Impairment Pt reports that she is only able to ambulate for 5 min at a time secondary to knee pain. Short Term Goal (STG) Pt able to ambulate for 15 min without need to stop secondary to R knee pain. STG Duration 01/11/23 Skilled Nursing Goal (LTG) Pt able to ambulate for 30 min without need to stop secondary to R knee pain. LTG Duration 02/01/23 LEFS Impairment LEFS score Impairment Pt had a score of 15/80 on LEFS Short Term Goal (STG) Pt with score of 35/80 in LEFS STG Duration 01/11/23 [employer] Cake Decorator Goal (LTG) Pt with score of 50/80 on LEFS LTG Duration 02/01/23 Pain Impairment Pain rating Impairment Pt reports pain at 9/10 at the highest at her R knee. Short Term Goal (STG) Pt to report pain at 5/10 at the highest. STG Duration 01/11/23 [employer] Cake Decorator Goal (LTG) Pt to report pain at 3/10 at the highest. LTG Duration 02/01/23 Assessment Summary Assessment Paulina Skinner presents to PT to address R knee pain. Pt reports hx of frequent falls with 20 falls in the last year . Pt able to demonstrate SLS for 15 seconds on B LE, will assess dynamic balance and higher level balance challenges at future visits. Pt demonstrates hypomobility at josé manuel patella. Pt with stiffness at hip flexors and hamstrings with manual stretching. Pt demonstrates weakness at R glute med, HS and quads. Pt demonstrates antalgic gait pattern, reporting pain at josé manuel hips and ankles as well as josé manuel knees. Pt will benefit from continued PT to progress LE strength and mobility to improve tolerance to functional tasks. Physical Therapy Plan Frequency and Duration Frequency of Treatment 2x/Week Duration of treatment (weeks) 6 Plan of Care Start Date 12/21/22 Plan of Care End Date 02/01/23 Therapeutic Interventions Therapeutic Interventions Balance Training,Gait Training ,Home Exercise Program,Joint Mobilizations,Manual Therapy, Neuromuscular Re-education, Patient/Caregiver Education, Self-Care/Home Management,Soft Tissue Mobilization, Therapeutic Activities, Therapeutic Exercises Modalities Cold Pack/Ice Massage,Electric Stimulation,Hot Packs, Ultrasound Next Visit Focus/Plan Next Note Type Treatment Note Next Visit Plan assess dynamic and higher level balance challenges, initiate manual to decrease knee pain, reuben stretch, progress LE strength Plan of Care Dates Plan of Care Start Date 12/21/22 Plan of Care End Date 02/01/23 Electronically Signed by: Randee Charles, PT 12/21/22 [id number] If you are in agreement with this Plan of Care, please return a signed and dated copy. I have reviewed this Plan of Care and certify that the skilled therapy services above are required to meet the patient?s needs. Physician Signature Date Printed Name and Credentials Clinical Instructor Signature Printed Name and Credentials
--- NOTE | 2022-12-24 14:20 | PT.OTN ---
Current Diagnoses Pain in right knee (12/24/22) Physical Therapy Treatment Note PT-OP-A Visit Information Start: 12/20/22 16:43 Freq: Status: Active Protocol: Document 12/24/22 14:20 AM (Rec: 12/24/22 15:29 AM [id number]) Out-Patient Physical Therapy Visit Information Visit Information Visit Type Treatment Note Visit Start Time 14:20 Visit Stop Time 14:57 Total Visit Minutes 37 Visit Number 05/06 Precautions Precautions latex allergy PT-OP-B Current Condition Start: 12/20/22 16:43 Freq: Status: Active Protocol: Document 12/24/22 14:20 AM (Rec: 12/24/22 15:29 AM [id number]) Current Condition History of Current Condition Onset Date [id number] Current Complaints R knee pain History of Current Condition Pt reports that she has fractured bilateral patella. Pt reports that she has had frequent falls. Pt reports history of frequent falls and does not know why she has been falling so much. Pt reports that she fallen 20 times this year. Pt reports that she is going to be meeting with neurologist regarding headaches soon and will discuss fall hx with him. Pt reports that sometimes she trips, sometimes she gets lightheaded and falls, has fallen on the ice. Fall reasons are variable. Pt also reports that she has fibromyalgia and pain at multiple joints. Prior Treatments and Tests Pt denies previous PT for knee . She has worn a knee brace in the past. PT-OP-C Subjective Start: 12/20/22 16:43 Freq: Status: Active Protocol: Document 12/24/22 14:20 AM (Rec: 12/24/22 15:29 AM [id number]) OP-PT Subjective Patient Comments Patient Comments Pt reports knee pain at 9/10 today. Pt reports anterior R knee pain today. PT-OP-D Balance Start: 12/20/22 16:43 Freq: Status: Active Protocol: Document 12/21/22 08:56 AM (Rec: 12/21/22 14:09 AM [id number]) Balance Tests Single Limb Standing Single Limb- Right 15 Single Limb- Left 15 PT-OP-E Functional Tests Start: 12/20/22 16:43 Freq: Status: Active Protocol: Document 12/21/22 08:56 AM (Rec: 12/21/22 14:09 AM [id number]) Functional Tests Five Times Sit to Stand Test Score 19.28 Comments painful PT-OP-F Manual Assessment Start: 12/20/22 16:43 Freq: Status: Active Protocol: Document 12/21/22 08:56 AM (Rec: 12/21/22 14:09 AM [id number]) Manual Assessments Joint Mobility Assessment Joint Mobility Assessment Hypomobility at Jesus patella PT-OP-G Mobility & Gait Start: 12/20/22 16:43 Freq: Status: Active Protocol: Document 12/21/22 08:56 AM (Rec: 12/21/22 14:09 AM [id number]) OP Gait Assessment Gait Gait Assistance Required: Independent Assistive Devices Assistive Device None Gait Deviations General Gait Pattern Antalgic PT-OP-J Posture/Palpation/Skin Start: 12/20/22 16:43 Freq: Status: Active Protocol: Document 12/21/22 08:56 AM (Rec: 12/21/22 14:09 AM [id number]) Posture Evaluation Position Standing Knee Posture (L) Neutral,(R) Neutral Palpation Assessment Location Right knee Palpation Location R quads, HS Palpation Findings Soft Tissue Tightness,Muscle Guarding,Tenderness PT-OP-K Range of Motion Start: 12/20/22 16:43 Freq: Status: Active Protocol: Document 12/21/22 08:56 AM (Rec: 12/21/22 14:09 AM [id number]) Knee Goniometric Range of Motion Knee Left Knee ROM WFL No Patient Position Supine Flexion Active (degrees) 125 Extension Active (degrees) 0 Comments Hamstring 90/90: 45 deg Right Knee ROM WFL No Patient Position Supine Flexion Active (degrees) 114 Extension Active (degrees) 0 Comments hamstring 90/90 40 deg PT-OP-M Strength Start: 12/20/22 16:43 Freq: Status: Active Protocol: Document 12/21/22 08:56 AM (Rec: 12/21/22 14:09 AM [id number]) Hip Strength Hip Manual Muscle Testing Left Flexion (L2) 4- Good- Abduction 3+ Fair+ Right Flexion (L2) 4- Good- Abduction 3+ Fair+ Knee Strength Knee Manual Muscle Testing Left Flexion (S2) 4- Good- Extension (L3) 4- Good- Right Flexion (S2) 4- Good- Extension (L3) 4- Good- PT-OP-Q Treatments Start: 12/20/22 16:43 Freq: Status: Active Protocol: Document 12/24/22 14:20 AM (Rec: 12/24/22 15:29 AM [id number]) Cardio Equipment Recumbent Stepper (Sci-Fit) Duration (Minutes) 5 Resistance 2 Seat Position 9 Therapeutic Exercises Supine Exercises SLR Supine Exercise Name SLR Side right Reps/Minutes 2x10 Sidelying Exercises Clamshells Side bilateral Reps/Minutes x15 Standing Exercises Standing hamstring stretch Standing Exercise Name hamstring stretch Side bilateral Equipment Used step Reps/Minutes 2x30 sec Calf stretch Standing Exercise Name standing calf stretch Side bilateral Equipment Used wedge and railing for UE support Reps/Minutes 2x30 sec Other Exercises hip abduction Other Exercise Name hip abduction Side bilateral Equipment Used railing Reps/Minutes 2x10 Manual Therapy Treatment Soft Tissue Mobilization R knee Body Location R quads, ITB, adductors and gastroc Mobilization Type Myofascial Release Intensity/Depth Moderate Body Position Supine Comments 1/2 foam roll under knees Joint Mobilizations R patellar mobs Joint Patella Direction inf, med, sup Grade II Body Position Supine Reps/Duration 5 min Comments Hypomobility, towel roll under knee PT-OP-T Assessment and Plan Start: 12/20/22 16:43 Freq: Status: Active Protocol: Document 12/24/22 14:20 AM (Rec: 12/24/22 15:29 AM [id number]) Physical Therapy Assessment Impairments Impairments Activity Tolerance,Balance, Functional Activities, Functional Mobility,Gait,Pain, Posture,ROM,Soft Tissue Mobility,Strength Goals Swimming Impairment Pt unable to swim secondary to increase in knee pain. Usp Goal (LTG) Pt able to swim without increase in knee pain. LTG Duration 02/01/23 Strength Impairment Knee strength Impairment Pt with 4-/5 knee strength Short Term Goal (STG) Pt with R knee strength grossly at 4/5. STG Duration 01/11/23 Metal Lather Goal (LTG) Pt with R knee strength grossly at 4+/5 LTG Duration 02/01/23 Walking ability Impairment Pain with ambulating Impairment Pt reports that she is only able to ambulate for 5 min at a time secondary to knee pain. Short Term Goal (STG) Pt able to ambulate for 15 min without need to stop secondary to R knee pain. STG Duration 01/11/23 Usp Goal (LTG) Pt able to ambulate for 30 min without need to stop secondary to R knee pain. LTG Duration 02/01/23 LEFS Impairment LEFS score Impairment Pt had a score of 15/80 on LEFS Short Term Goal (STG) Pt with score of 35/80 in LEFS STG Duration 01/11/23 Usp Goal (LTG) Pt with score of 50/80 on LEFS LTG Duration 02/01/23 Pain Impairment Pain rating Impairment Pt reports pain at 9/10 at the highest at her R knee. Short Term Goal (STG) Pt to report pain at 5/10 at the highest. STG Duration 01/11/23 Usp Goal (LTG) Pt to report pain at 3/10 at the highest. LTG Duration 02/01/23 Assessment Summary Assessment Pt with fair tolerance to exercise today. Pt demonstrated myofascial restrictions at distal quads. Pt continues to demonstrate hypomobility at patella. Pt required cueing for pelvic control with clamshells. Pt would benefit from continued PT to progress R LE strength and mobility to improve tolerance to gait and functional activities. Kinesiotape test strip applied to L forearm. Pt instructed to remove tape if she develops any itching or skin irritation. Physical Therapy Plan Frequency and Duration Frequency of Treatment 2x/Week Duration of treatment (weeks) 6 Plan of Care Start Date 12/21/22 Plan of Care End Date 02/01/23 Therapeutic Interventions Therapeutic Interventions Balance Training,Gait Training ,Home Exercise Program,Joint Mobilizations,Manual Therapy, Neuromuscular Re-education, Patient/Caregiver Education, Self-Care/Home Management,Soft Tissue Mobilization, Therapeutic Activities, Therapeutic Exercises Modalities Cold Pack/Ice Massage,Electric Stimulation,Hot Packs, Ultrasound Next Visit Focus/Plan Next Note Type Treatment Note Next Visit Plan cont to progress R LE strength and mobility, initiate dynamic balance, kinesiotape test spot on L forearm-assess skin tolerance and consider KT at R knee if appropriate *2 unit visits for 12 visits
--- NOTE | 2022-12-28 09:01 | PT.OTN ---
Current Diagnoses Pain in right knee (12/28/22) Physical Therapy Treatment Note PT-OP-A Visit Information Start: 12/20/22 16:43 Freq: Status: Active Protocol: Document 12/28/22 09:01 AM (Rec: 12/28/22 12:02 AM [id number]) Out-Patient Physical Therapy Visit Information Visit Information Visit Type Treatment Note Visit Start Time 09:01 Visit Stop Time 09:38 Total Visit Minutes 37 Visit Number 06/06 Precautions Precautions latex allergy, fibromyalgia PT-OP-B Current Condition Start: 12/20/22 16:43 Freq: Status: Active Protocol: Document 12/28/22 09:01 AM (Rec: 12/28/22 12:02 AM [id number]) Current Condition History of Current Condition Onset Date [id number] Current Complaints R knee pain History of Current Condition Pt reports that she has fractured bilateral patella. Pt reports that she has had frequent falls. Pt reports history of frequent falls and does not know why she has been falling so much. Pt reports that she fallen 20 times this year. Pt reports that she is going to be meeting with neurologist regarding headaches soon and will discuss fall hx with him. Pt reports that sometimes she trips, sometimes she gets lightheaded and falls, has fallen on the ice. Fall reasons are variable. Pt also reports that she has fibromyalgia and pain at multiple joints. Prior Treatments and Tests Pt denies previous PT for knee . She has worn a knee brace in the past. PT-OP-C Subjective Start: 12/20/22 16:43 Freq: Status: Active Protocol: Document 12/28/22 09:01 AM (Rec: 12/28/22 12:02 AM [id number]) OP-PT Subjective Patient Comments Patient Comments Pt reports pain is still at 9/ 10 today. Patient Reported Progress Same PT-OP-D Balance Start: 12/20/22 16:43 Freq: Status: Active Protocol: Document 12/21/22 08:56 AM (Rec: 12/21/22 14:09 AM [id number]) Balance Tests Single Limb Standing Single Limb- Right 15 Single Limb- Left 15 PT-OP-E Functional Tests Start: 12/20/22 16:43 Freq: Status: Active Protocol: Document 12/21/22 08:56 AM (Rec: 12/21/22 14:09 AM [id number]) Functional Tests Five Times Sit to Stand Test Score 19.28 Comments painful PT-OP-F Manual Assessment Start: 12/20/22 16:43 Freq: Status: Active Protocol: Document 12/21/22 08:56 AM (Rec: 12/21/22 14:09 AM [id number]) Manual Assessments Joint Mobility Assessment Joint Mobility Assessment Hypomobility at Jesus patella PT-OP-G Mobility & Gait Start: 12/20/22 16:43 Freq: Status: Active Protocol: Document 12/21/22 08:56 AM (Rec: 12/21/22 14:09 AM [id number]) OP Gait Assessment Gait Gait Assistance Required: Independent Assistive Devices Assistive Device None Gait Deviations General Gait Pattern Antalgic PT-OP-J Posture/Palpation/Skin Start: 12/20/22 16:43 Freq: Status: Active Protocol: Document 12/21/22 08:56 AM (Rec: 12/21/22 14:09 AM [id number]) Posture Evaluation Position Standing Knee Posture (L) Neutral,(R) Neutral Palpation Assessment Location Right knee Palpation Location R quads, HS Palpation Findings Soft Tissue Tightness,Muscle Guarding,Tenderness PT-OP-K Range of Motion Start: 12/20/22 16:43 Freq: Status: Active Protocol: Document 12/21/22 08:56 AM (Rec: 12/21/22 14:09 AM [id number]) Knee Goniometric Range of Motion Knee Left Knee ROM WFL No Patient Position Supine Flexion Active (degrees) 125 Extension Active (degrees) 0 Comments Hamstring 90/90: 45 deg Right Knee ROM WFL No Patient Position Supine Flexion Active (degrees) 114 Extension Active (degrees) 0 Comments hamstring 90/90 40 deg PT-OP-M Strength Start: 12/20/22 16:43 Freq: Status: Active Protocol: Document 12/21/22 08:56 AM (Rec: 12/21/22 14:09 AM [id number]) Hip Strength Hip Manual Muscle Testing Left Flexion (L2) 4- Good- Abduction 3+ Fair+ Right Flexion (L2) 4- Good- Abduction 3+ Fair+ Knee Strength Knee Manual Muscle Testing Left Flexion (S2) 4- Good- Extension (L3) 4- Good- Right Flexion (S2) 4- Good- Extension (L3) 4- Good- PT-OP-Q Treatments Start: 12/20/22 16:43 Freq: Status: Active Protocol: Document 12/28/22 09:01 AM (Rec: 12/28/22 12:02 AM [id number]) Cardio Equipment Recumbent Stepper (Sci-Fit) Duration (Minutes) 6 Resistance 2 Seat Position 9 Gym Equipment Shuttle Recovery leg press Details Leg press Resistance navy 50# Reps/Time x1 min BLE, then Uni Therapeutic Exercises Supine Exercises SLR Supine Exercise Name SLR Side right Resistance 2# Reps/Minutes 2x10 Sidelying Exercises Clamshells Side bilateral Reps/Minutes x15 Standing Exercises Side step Standing Exercise Name resisted side step Side bilateral Resistance Meigs TB Equipment Used railing Reps/Minutes 2x20 ft Standing hamstring stretch Standing Exercise Name hamstring stretch Side bilateral Equipment Used step Reps/Minutes 2x30 sec Calf stretch Standing Exercise Name standing calf stretch Side bilateral Equipment Used wedge and railing for UE support Reps/Minutes 2x30 sec Other Exercises hip abduction Other Exercise Name hip abduction Side bilateral Resistance Meigs TB Equipment Used railing Reps/Minutes 2x10 Manual Therapy Treatment Joint Mobilizations R patellar mobs Joint R patella Direction inf, med, sup Grade II Body Position Supine Reps/Duration 4 min Taping Patellar KT Body Location R patella Treatment Focus To decrease PFPS Type of Tape Kinesio Tape Skin Inspection L forearm test strip-no skin irritation following Comments 1 I band inf patella at patellar tendon 90% stretch, Upside down y-band, lat strip with 60% and med strip with 40 %, Pt instructed to remove tape if symptoms increase or if any skin irritation. Pt instructed to remove tape before bed this evening to monitor skin. Can add tape duration as tolerated PT-OP-T Assessment and Plan Start: 12/20/22 16:43 Freq: Status: Active Protocol: Document 12/28/22 09:01 AM (Rec: 12/28/22 12:02 AM [id number]) Physical Therapy Assessment Impairments Impairments Activity Tolerance,Balance, Functional Activities, Functional Mobility,Gait,Pain, Posture,ROM,Soft Tissue Mobility,Strength Goals Swimming Impairment Pt unable to swim secondary to increase in knee pain. Skilled Nursing Goal (LTG) Pt able to swim without increase in knee pain. LTG Duration 02/01/23 Strength Impairment Knee strength Impairment Pt with 4-/5 knee strength Short Term Goal (STG) Pt with R knee strength grossly at 4/5. STG Duration 9/19/23 Skilled Nursing Goal (LTG) Pt with R knee strength grossly at 4+/5 LTG Duration 02/01/23 Walking ability Impairment Pain with ambulating Impairment Pt reports that she is only able to ambulate for 5 min at a time secondary to knee pain. Short Term Goal (STG) Pt able to ambulate for 15 min without need to stop secondary to R knee pain. STG Duration 01/11/23 File Keeper Goal (LTG) Pt able to ambulate for 30 min without need to stop secondary to R knee pain. LTG Duration 02/01/23 LEFS Impairment LEFS score Impairment Pt had a score of 15/80 on LEFS Short Term Goal (STG) Pt with score of 35/80 in LEFS STG Duration 01/11/23 Skilled Nursing Goal (LTG) Pt with score of 50/80 on LEFS LTG Duration 02/01/23 Pain Impairment Pain rating Impairment Pt reports pain at 9/10 at the highest at her R knee. Short Term Goal (STG) Pt to report pain at 5/10 at the highest. STG Duration 01/11/23 File Keeper Goal (LTG) Pt to report pain at 3/10 at the highest. LTG Duration 02/01/23 Assessment Summary Assessment Pt without report of increased knee symptoms during tx session today. KT applied today at R patella to decrease knee pain. Pt tolerated increase resistance with LE strengthening today. Pt would benefit from continued PT to improve LE strength and mobility to decrease R knee pain with functional tasks. Physical Therapy Plan Frequency and Duration Frequency of Treatment 2x/Week Duration of treatment (weeks) 6 Plan of Care Start Date 12/21/22 Plan of Care End Date 02/01/23 Therapeutic Interventions Therapeutic Interventions Balance Training,Gait Training ,Home Exercise Program,Joint Mobilizations,Manual Therapy, Neuromuscular Re-education, Patient/Caregiver Education, Self-Care/Home Management,Soft Tissue Mobilization, Therapeutic Activities, Therapeutic Exercises Modalities Cold Pack/Ice Massage,Electric Stimulation,Hot Packs, Ultrasound Next Visit Focus/Plan Next Note Type Treatment Note Next Visit Plan cont to progress R LE strength and mobility, initiate dynamic balance, kinesiotape test spot on L forearm-assess skin tolerance and consider KT at R knee if appropriate *2 unit visits for 12 visits
--- NOTE | 2023-01-04 15:15 | PT.OTN ---
Current Diagnoses Pain in right knee (01/04/23) Physical Therapy Treatment Note PT-OP-A Visit Information Start: 12/20/22 16:43 Freq: Status: Active Protocol: Document 01/04/23 15:15 AM (Rec: 01/04/23 17:13 AM [id number]) Out-Patient Physical Therapy Visit Information Visit Information Visit Type Treatment Note Visit Start Time 15:18 Visit Stop Time 15:55 Total Visit Minutes 37 Visit Number 07/04 Precautions Precautions latex allergy, fibromyalgia, skin allergy to KT PT-OP-B Current Condition Start: 12/20/22 16:43 Freq: Status: Active Protocol: Document 12/28/22 09:01 AM (Rec: 12/28/22 12:02 AM [id number]) Current Condition History of Current Condition Onset Date [id number] Current Complaints R knee pain History of Current Condition Pt reports that she has fractured bilateral patella. Pt reports that she has had frequent falls. Pt reports history of frequent falls and does not know why she has been falling so much. Pt reports that she fallen 20 times this year. Pt reports that she is going to be meeting with neurologist regarding headaches soon and will discuss fall hx with him. Pt reports that sometimes she trips, sometimes she gets lightheaded and falls, has fallen on the ice. Fall reasons are variable. Pt also reports that she has fibromyalgia and pain at multiple joints. Prior Treatments and Tests Pt denies previous PT for knee . She has worn a knee brace in the past. PT-OP-C Subjective Start: 12/20/22 16:43 Freq: Status: Active Protocol: Document 01/04/23 15:15 AM (Rec: 01/04/23 17:13 AM [id number]) OP-PT Subjective Patient Comments Patient Comments Pt reports knee pain at 7.5-8/ 10 today. Pt reports that she did have a skin reaction to the KT that occured on the same day that it was applied and lasted for a few days. Pt showed PT pictures of redness and welts on skin from tape. Pt denies falls since starting PT, though reports an almost fall at [employer] yesterday when her L knee gave out on her. PT-OP-D Balance Start: 12/20/22 16:43 Freq: Status: Active Protocol: Document 12/21/22 08:56 AM (Rec: 12/21/22 14:09 AM [id number]) Balance Tests Single Limb Standing Single Limb- Right 15 Single Limb- Left 15 PT-OP-E Functional Tests Start: 12/20/22 16:43 Freq: Status: Active Protocol: Document 12/21/22 08:56 AM (Rec: 12/21/22 14:09 AM [id number]) Functional Tests Five Times Sit to Stand Test Score 19.28 Comments painful PT-OP-F Manual Assessment Start: 12/20/22 16:43 Freq: Status: Active Protocol: Document 12/21/22 08:56 AM (Rec: 12/21/22 14:09 AM [id number]) Manual Assessments Joint Mobility Assessment Joint Mobility Assessment Hypomobility at Jesus patella PT-OP-G Mobility & Gait Start: 12/20/22 16:43 Freq: Status: Active Protocol: Document 12/21/22 08:56 AM (Rec: 12/21/22 14:09 AM [id number]) OP Gait Assessment Gait Gait Assistance Required: Independent Assistive Devices Assistive Device None Gait Deviations General Gait Pattern Antalgic PT-OP-J Posture/Palpation/Skin Start: 12/20/22 16:43 Freq: Status: Active Protocol: Document 12/21/22 08:56 AM (Rec: 12/21/22 14:09 AM [id number]) Posture Evaluation Position Standing Knee Posture (L) Neutral,(R) Neutral Palpation Assessment Location Right knee Palpation Location R quads, HS Palpation Findings Soft Tissue Tightness,Muscle Guarding,Tenderness PT-OP-K Range of Motion Start: 12/20/22 16:43 Freq: Status: Active Protocol: Document 12/21/22 08:56 AM (Rec: 12/21/22 14:09 AM [id number]) Knee Goniometric Range of Motion Knee Left Knee ROM WFL No Patient Position Supine Flexion Active (degrees) 125 Extension Active (degrees) 0 Comments Hamstring 90/90: 45 deg Right Knee ROM WFL No Patient Position Supine Flexion Active (degrees) 114 Extension Active (degrees) 0 Comments hamstring 90/90 40 deg PT-OP-M Strength Start: 12/20/22 16:43 Freq: Status: Active Protocol: Document 12/21/22 08:56 AM (Rec: 12/21/22 14:09 AM [id number]) Hip Strength Hip Manual Muscle Testing Left Flexion (L2) 4- Good- Abduction 3+ Fair+ Right Flexion (L2) 4- Good- Abduction 3+ Fair+ Knee Strength Knee Manual Muscle Testing Left Flexion (S2) 4- Good- Extension (L3) 4- Good- Right Flexion (S2) 4- Good- Extension (L3) 4- Good- PT-OP-Q Treatments Start: 12/20/22 16:43 Freq: Status: Active Protocol: Document 01/04/23 15:15 AM (Rec: 01/04/23 17:13 AM [id number]) Cardio Equipment Recumbent Stepper (Sci-Fit) Duration (Minutes) 6 Resistance 2 Seat Position 9 Gym Equipment Shuttle Recovery leg press Details Leg press Resistance navy 75# Jesus, 50# uni Shuttle Recovery Platform Stable Reps/Time 2x1 min Jesus, 1x1 min unilateral Therapeutic Exercises Supine Exercises SLR Supine Exercise Name SLR Side right Resistance 2# Reps/Minutes 2x10 Standing Exercises Chair squat Standing Exercise Name Sit-stand Side bilateral Equipment Used hi-low table height at 21 inches from floor Reps/Minutes 10 Step-ups Standing Exercise Name Step ups Side bilateral Equipment Used 4 in step Reps/Minutes x10 Standing hamstring stretch Standing Exercise Name hamstring stretch Side bilateral Equipment Used step Reps/Minutes 2x30 sec Calf stretch Standing Exercise Name standing calf stretch Side bilateral Equipment Used wedge and railing for UE support Reps/Minutes 2x30 sec Other Exercises hip abduction Other Exercise Name hip abduction Side bilateral Resistance [place] TB Equipment Used railing Reps/Minutes 2x10 Manual Therapy Treatment Taping Patellar KT Body Location Discontinue Comments Discontinue secondary to skin allergy. PT-OP-T Assessment and Plan Start: 12/20/22 16:43 Freq: Status: Active Protocol: Document 01/04/23 15:15 AM (Rec: 01/04/23 17:13 AM [id number]) Physical Therapy Assessment Impairments Impairments Activity Tolerance,Balance, Functional Activities, Functional Mobility,Gait,Pain, Posture,ROM,Soft Tissue Mobility,Strength Goals Swimming Impairment Pt unable to swim secondary to increase in knee pain. Senior Cytotechnologist Goal (LTG) Pt able to swim without increase in knee pain. LTG Duration 02/01/23 Strength Impairment Knee strength Impairment Pt with 4-/5 knee strength Short Term Goal (STG) Pt with R knee strength grossly at 4/5. STG Duration 01/11/23 Senior Cytotechnologist Goal (LTG) Pt with R knee strength grossly at 4+/5 LTG Duration 02/01/23 Walking ability Impairment Pain with ambulating Impairment Pt reports that she is only able to ambulate for 5 min at a time secondary to knee pain. Short Term Goal (STG) Pt able to ambulate for 15 min without need to stop secondary to R knee pain. STG Duration 01/11/23 Senior Cytotechnologist Goal (LTG) Pt able to ambulate for 30 min without need to stop secondary to R knee pain. LTG Duration 02/01/23 LEFS Impairment LEFS score Impairment Pt had a score of 15/80 on LEFS Short Term Goal (STG) Pt with score of 35/80 in LEFS STG Duration 01/11/23 Senior Cytotechnologist Goal (LTG) Pt with score of 50/80 on LEFS LTG Duration 02/01/23 Pain Impairment Pain rating Impairment Pt reports pain at 9/10 at the highest at her R knee. Short Term Goal (STG) Pt to report pain at 5/10 at the highest. STG Duration 01/11/23 Senior Cytotechnologist Goal (LTG) Pt to report pain at 3/10 at the highest. LTG Duration 02/01/23 Assessment Summary Assessment Pt with reported difficulty with chair squats and step-ups today. Pt continues to demonstrate poor patellar mobility and glide with CKC exercises. Pt would benefit from continued PT to progress LE strength and mobility to improve tolerance to functional activities. Physical Therapy Plan Frequency and Duration Frequency of Treatment 2x/Week Duration of treatment (weeks) 6 Plan of Care Start Date 12/21/22 Plan of Care End Date 02/01/23 Therapeutic Interventions Therapeutic Interventions Balance Training,Gait Training ,Home Exercise Program,Joint Mobilizations,Manual Therapy, Neuromuscular Re-education, Patient/Caregiver Education, Self-Care/Home Management,Soft Tissue Mobilization, Therapeutic Activities, Therapeutic Exercises Modalities Cold Pack/Ice Massage,Electric Stimulation,Hot Packs, Ultrasound Next Visit Focus/Plan Next Note Type Treatment Note Next Visit Plan cont to progress R LE strength and mobility, initiate dynamic balance *2 unit visits for 12 visits
--- NOTE | 2023-01-11 13:35 | PT.OTN ---
Current Diagnoses Pain in right knee (01/11/23) Physical Therapy Treatment Note PT-OP-A Visit Information Start: 12/20/22 16:43 Freq: Status: Active Protocol: Document 01/11/23 13:35 AM (Rec: 01/11/23 14:18 AM [id number]) Out-Patient Physical Therapy Visit Information Visit Information Visit Type Progress Note Visit Start Time 13:35 Total Visit Minutes 37 Visit Number / Precautions Precautions latex allergy, fibromyalgia, skin allergy to KT PT-OP-B Current Condition Start: 12/20/22 16:43 Freq: Status: Active Protocol: Document 12/28/22 09:01 AM (Rec: 12/28/22 12:02 AM [id number]) Current Condition History of Current Condition Onset Date [id number] Current Complaints R knee pain History of Current Condition Pt reports that she has fractured bilateral patella. Pt reports that she has had frequent falls. Pt reports history of frequent falls and does not know why she has been falling so much. Pt reports that she fallen 20 times this year. Pt reports that she is going to be meeting with neurologist regarding headaches soon and will discuss fall hx with him. Pt reports that sometimes she trips, sometimes she gets lightheaded and falls, has fallen on the ice. Fall reasons are variable. Pt also reports that she has fibromyalgia and pain at multiple joints. Prior Treatments and Tests Pt denies previous PT for knee . She has worn a knee brace in the past. PT-OP-C Subjective Start: 12/20/22 16:43 Freq: Status: Active Protocol: Document 01/11/23 13:35 AM (Rec: 01/11/23 14:18 AM [id number]) OP-PT Subjective Patient Comments Patient Comments Pt reports that her knee has been stiff and sore Patient Questionnaires Lower Extremity Functional Scale LEFS Score 24 LEFS Impairment 60 to 79% Impaired (Score 17- 31) PT-OP-D Balance Start: 12/20/22 16:43 Freq: Status: Active Protocol: Document 12/21/22 08:56 AM (Rec: 12/21/22 14:09 AM [id number]) Balance Tests Single Limb Standing Single Limb- Right 15 Single Limb- Left 15 PT-OP-E Functional Tests Start: 12/20/22 16:43 Freq: Status: Active Protocol: Document 12/21/22 08:56 AM (Rec: 08/29/23 14:09 AM [id number]) Functional Tests Five Times Sit to Stand Test Score 19.28 Comments painful PT-OP-F Manual Assessment Start: 12/20/22 16:43 Freq: Status: Active Protocol: Document 12/21/22 08:56 AM (Rec: 12/21/22 14:09 AM [id number]) Manual Assessments Joint Mobility Assessment Joint Mobility Assessment Hypomobility at Jesus patella PT-OP-G Mobility & Gait Start: 12/20/22 16:43 Freq: Status: Active Protocol: Document 12/21/22 08:56 AM (Rec: 12/21/22 14:09 AM [id number]) OP Gait Assessment Gait Gait Assistance Required: Independent Assistive Devices Assistive Device None Gait Deviations General Gait Pattern Antalgic PT-OP-J Posture/Palpation/Skin Start: 12/20/22 16:43 Freq: Status: Active Protocol: Document 12/21/22 08:56 AM (Rec: 12/21/22 14:09 AM [id number]) Posture Evaluation Position Standing Knee Posture (L) Neutral,(R) Neutral Palpation Assessment Location Right knee Palpation Location R quads, HS Palpation Findings Soft Tissue Tightness,Muscle Guarding,Tenderness PT-OP-K Range of Motion Start: 12/20/22 16:43 Freq: Status: Active Protocol: Document 12/21/22 08:56 AM (Rec: 12/21/22 14:09 AM [id number]) Knee Goniometric Range of Motion Knee Left Knee ROM WFL No Patient Position Supine Flexion Active (degrees) 125 Extension Active (degrees) 0 Comments Hamstring 90/90: 45 deg Right Knee ROM WFL No Patient Position Supine Flexion Active (degrees) 114 Extension Active (degrees) 0 Comments hamstring 90/90 40 deg PT-OP-M Strength Start: 12/20/22 16:43 Freq: Status: Active Protocol: Document 01/11/23 13:35 AM (Rec: 01/11/23 14:19 AM [id number]) Knee Strength Knee Manual Muscle Testing Left Flexion (S2) 4 Good Extension (L3) 4 Good Right Flexion (S2) 4 Good Extension (L3) 4 Good PT-OP-Q Treatments Start: 12/20/22 16:43 Freq: Status: Active Protocol: Document 01/11/23 13:35 AM (Rec: 01/11/23 14:18 AM [id number]) Cardio Equipment Recumbent Stepper (Sci-Fit) Duration (Minutes) 6 Resistance 3 Seat Position 9 Gym Equipment Shuttle Recovery leg press Details Leg press Resistance navy 75# Jesus, 50# uni Shuttle Recovery Platform Stable Reps/Time 2x1 min Jesus, 1x1 min unilateral Therapeutic Exercises Standing Exercises Hip extension Side bilateral Resistance [place] TB Equipment Used railing Reps/Minutes 2x15 Side step Standing Exercise Name resisted side step Resistance [place] TB Reps/Minutes 2x20 ft Standing hamstring stretch Standing Exercise Name hamstring stretch Side bilateral Equipment Used step Reps/Minutes 2x30 sec Calf stretch Standing Exercise Name standing calf stretch Side bilateral Equipment Used wedge and railing for UE support Reps/Minutes 2x30 sec Other Exercises hip abduction Other Exercise Name hip abduction Side bilateral Resistance [place] TB Equipment Used railing Reps/Minutes 2x15 Manual Therapy Treatment Soft Tissue Mobilization R knee Body Location R quads, adductors, gastroc, ITB Mobilization Type Myofascial Release Intensity/Depth Moderate Body Position Supine PT-OP-T Assessment and Plan Start: 12/20/22 16:43 Freq: Status: Active Protocol: Document 01/11/23 13:35 AM (Rec: 01/11/23 14:18 AM [id number]) Physical Therapy Assessment Impairments Impairments Activity Tolerance,Balance, Functional Activities, Functional Mobility,Gait,Pain, Posture,ROM,Soft Tissue Mobility,Strength Goals Swimming Impairment Pt unable to swim secondary to increase in knee pain. Registration Scheduling Specialist Goal (LTG) Pt able to swim without increase in knee pain. LTG Duration 02/01/23 Strength Impairment Knee strength Impairment Pt with 4-/5 knee strength Short Term Goal (STG) Pt with R knee strength grossly at 4/5. 01/11/23: GOAL MET STG Duration 01/11/23 Registration Scheduling Specialist Goal (LTG) Pt with R knee strength grossly at 4+/5 LTG Duration 02/01/23 Walking ability Impairment Pain with ambulating Impairment Pt reports that she is only able to ambulate for 5 min at a time secondary to knee pain. Short Term Goal (STG) Pt able to ambulate for 15 min without need to stop secondary to R knee pain. 01/11/23: Progressing towards goal. Pt reports that she is able to walk 10 min before she needs to sit and take a rest. STG Duration 01/11/23 Registration Scheduling Specialist Goal (LTG) Pt able to ambulate for 30 min without need to stop secondary to R knee pain. LTG Duration 02/01/23 LEFS Impairment LEFS score Impairment Pt had a score of 15/80 on LEFS Short Term Goal (STG) Pt with score of 35/80 in LEFS 01/11/23: PROGRESSING TOWARDS GOAL 24/80 STG Duration 01/11/23 Detention Goal (LTG) Pt with score of 50/80 on LEFS LTG Duration 02/01/23 Pain Impairment Pain rating Impairment Pt reports pain at 9/10 at the highest at her R knee. Short Term Goal (STG) Pt to report pain at 5/10 at the highest. GOAL UNMET: Similar pain complaints compared to IE. STG Duration 01/11/23 Detention Goal (LTG) Pt to report pain at 3/10 at the highest. LTG Duration 02/01/23 Assessment Summary Assessment Pt progressing towards all STG , with 1 met. Pt demonstrated fatigue at glutes with standing therex today. Pt demonstrates stiffness at bilateral rectus with manual stretching. Pt will return to PT later this week to continue to progress strength and mobility towards LTG. Physical Therapy Plan Frequency and Duration Frequency of Treatment 2x/Week Duration of treatment (weeks) 6 Plan of Care Start Date 12/21/22 Plan of Care End Date 02/01/23 Therapeutic Interventions Therapeutic Interventions Balance Training,Gait Training ,Home Exercise Program,Joint Mobilizations,Manual Therapy, Neuromuscular Re-education, Patient/Caregiver Education, Self-Care/Home Management,Soft Tissue Mobilization, Therapeutic Activities, Therapeutic Exercises Modalities Cold Pack/Ice Massage,Electric Stimulation,Hot Packs, Ultrasound Next Visit Focus/Plan Next Note Type Treatment Note Next Visit Plan cont to progress R LE strength and mobility, initiate dynamic balance
--- NOTE | 2023-01-14 13:33 | PT.OTN ---
Current Diagnoses Pain in right knee (01/14/23) Physical Therapy Treatment Note PT-OP-A Visit Information Start: 12/20/22 16:43 Freq: Status: Active Protocol: Document 01/14/23 13:33 AM (Rec: 01/14/23 14:16 AM [id number]) Out-Patient Physical Therapy Visit Information Visit Information Visit Type Treatment Note Visit Start Time 13:33 Visit Stop Time 14:10 Total Visit Minutes 37 Visit Number 10/04 Precautions Precautions latex allergy, fibromyalgia, skin allergy to KT PT-OP-B Current Condition Start: 12/20/22 16:43 Freq: Status: Active Protocol: Document 12/28/22 09:01 AM (Rec: 12/28/22 12:02 AM [id number]) Current Condition History of Current Condition Onset Date [id number] Current Complaints R knee pain History of Current Condition Pt reports that she has fractured bilateral patella. Pt reports that she has had frequent falls. Pt reports history of frequent falls and does not know why she has been falling so much. Pt reports that she fallen 20 times this year. Pt reports that she is going to be meeting with neurologist regarding headaches soon and will discuss fall hx with him. Pt reports that sometimes she trips, sometimes she gets lightheaded and falls, has fallen on the ice. Fall reasons are variable. Pt also reports that she has fibromyalgia and pain at multiple joints. Prior Treatments and Tests Pt denies previous PT for knee . She has worn a knee brace in the past. PT-OP-C Subjective Start: 12/20/22 16:43 Freq: Status: Active Protocol: Document 01/14/23 13:33 AM (Rec: 01/14/23 14:16 AM [id number]) OP-PT Subjective Patient Comments Patient Comments Pt reports that she fell twice on the stairs and once on a path. Pt unsure of why she fell. She reports that she saw a neurologist since previous session that diagnosed her with vestibular migraines. She is unsure if this has contributed to her frequent falls. PT-OP-D Balance Start: 12/20/22 16:43 Freq: Status: Active Protocol: Document 12/21/22 08:56 AM (Rec: 12/21/22 14:09 AM [id number]) Balance Tests Single Limb Standing Single Limb- Right 15 Single Limb- Left 15 PT-OP-E Functional Tests Start: 12/20/22 16:43 Freq: Status: Active Protocol: Document 12/21/22 08:56 AM (Rec: 12/21/22 14:09 AM [id number]) Functional Tests Five Times Sit to Stand Test Score 19.28 Comments painful PT-OP-F Manual Assessment Start: 12/20/22 16:43 Freq: Status: Active Protocol: Document 12/21/22 08:56 AM (Rec: 12/21/22 14:09 AM [id number]) Manual Assessments Joint Mobility Assessment Joint Mobility Assessment Hypomobility at Jesus patella PT-OP-G Mobility & Gait Start: 12/20/22 16:43 Freq: Status: Active Protocol: Document 12/21/22 08:56 AM (Rec: 12/21/22 14:09 AM [id number]) OP Gait Assessment Gait Gait Assistance Required: Independent Assistive Devices Assistive Device None Gait Deviations General Gait Pattern Antalgic PT-OP-J Posture/Palpation/Skin Start: 12/20/22 16:43 Freq: Status: Active Protocol: Document 12/21/22 08:56 AM (Rec: 12/21/22 14:09 AM [id number]) Posture Evaluation Position Standing Knee Posture (L) Neutral,(R) Neutral Palpation Assessment Location Right knee Palpation Location R quads, HS Palpation Findings Soft Tissue Tightness,Muscle Guarding,Tenderness PT-OP-K Range of Motion Start: 12/20/22 16:43 Freq: Status: Active Protocol: Document 12/21/22 08:56 AM (Rec: 12/21/22 14:09 AM [id number]) Knee Goniometric Range of Motion Knee Left Knee ROM WFL No Patient Position Supine Flexion Active (degrees) 125 Extension Active (degrees) 0 Comments Hamstring 90/90: 45 deg Right Knee ROM WFL No Patient Position Supine Flexion Active (degrees) 114 Extension Active (degrees) 0 Comments hamstring 90/90 40 deg PT-OP-M Strength Start: 12/20/22 16:43 Freq: Status: Active Protocol: Document 01/11/23 13:35 AM (Rec: 01/11/23 14:19 AM [id number]) Knee Strength Knee Manual Muscle Testing Left Flexion (S2) 4 Good Extension (L3) 4 Good Right Flexion (S2) 4 Good Extension (L3) 4 Good PT-OP-Q Treatments Start: 12/20/22 16:43 Freq: Status: Active Protocol: Document 01/14/23 13:33 AM (Rec: 01/14/23 14:16 AM [id number]) Cardio Equipment Recumbent Stepper (Sci-Fit) Duration (Minutes) 6 Resistance 3 Seat Position 9 Therapeutic Exercises Supine Exercises Bridge Supine Exercise Name Bridge Side bilateral Reps/Minutes x10 SAQ Supine Exercise Name SAQ Side bilateral Resistance 4# Reps/Minutes 2x10 SLR Supine Exercise Name SLR Side bilateral Resistance 2# Standing Exercises Standing TKE Standing Exercise Name Standing TKE Side right Equipment Used blue ball on wall Reps/Minutes 10x3 sec Standing hamstring stretch Standing Exercise Name hamstring stretch Side bilateral Equipment Used step Reps/Minutes 2x30 sec Calf stretch Standing Exercise Name standing calf stretch Side bilateral Equipment Used wedge and railing for UE support Reps/Minutes 2x30 sec Manual Therapy Treatment Soft Tissue Mobilization R knee Body Location R quads, adductors, gastroc, ITB Mobilization Type Myofascial Release Intensity/Depth Moderate Body Position Supine Manual Techniques Manual hip flexor stretch Type Alok Reps/Duration 2x30 sec ea LE PT-OP-T Assessment and Plan Start: 12/20/22 16:43 Freq: Status: Active Protocol: Document 01/14/23 13:33 AM (Rec: 01/14/23 14:16 AM [id number]) Physical Therapy Assessment Impairments Impairments Activity Tolerance,Balance, Functional Activities, Functional Mobility,Gait,Pain, Posture,ROM,Soft Tissue Mobility,Strength Goals Swimming Impairment Pt unable to swim secondary to increase in knee pain. Fpc Goal (LTG) Pt able to swim without increase in knee pain. LTG Duration 02/01/23 Strength Impairment Knee strength Impairment Pt with 4-/5 knee strength Short Term Goal (STG) Pt with R knee strength grossly at 4/5. 01/11/23: GOAL MET STG Duration 01/11/23 Fpc Goal (LTG) Pt with R knee strength grossly at 4+/5 LTG Duration 02/01/23 Walking ability Impairment Pain with ambulating Impairment Pt reports that she is only able to ambulate for 5 min at a time secondary to knee pain. Short Term Goal (STG) Pt able to ambulate for 15 min without need to stop secondary to R knee pain. 01/11/23: Progressing towards goal. Pt reports that she is able to walk 10 min before she needs to sit and take a rest. STG Duration 01/11/23 Fpc Goal (LTG) Pt able to ambulate for 30 min without need to stop secondary to R knee pain. LTG Duration 02/01/23 LEFS Impairment LEFS score Impairment Pt had a score of 15/80 on LEFS Short Term Goal (STG) Pt with score of 35/80 in LEFS 01/11/23: PROGRESSING TOWARDS GOAL 24/80 STG Duration 01/11/23 Fpc Goal (LTG) Pt with score of 50/80 on LEFS LTG Duration 02/01/23 Pain Impairment Pain rating Impairment Pt reports pain at 9/10 at the highest at her R knee. Short Term Goal (STG) Pt to report pain at 5/10 at the highest. GOAL UNMET: Similar pain complaints compared to IE. STG Duration 01/11/23 Dairy Technician Goal (LTG) Pt to report pain at 3/10 at the highest. LTG Duration 02/01/23 Assessment Summary Assessment Pt with decreased tolerance to exercise today secondary to increased pain from falls. Pt with fair tolerance to supine exercises. Pt challenged with glute strength with bridge. Pt continues to be very stiff at hip flexors/quads with alok stretch. Pt demonstrates antalgic gait with decreased R knee flexion during gait pattern. Pt will return to PT next week to continue to progress strength and mobility as tolerated. Physical Therapy Plan Frequency and Duration Frequency of Treatment 2x/Week Duration of treatment (weeks) 6 Plan of Care Start Date 12/21/22 Plan of Care End Date 02/01/23 Therapeutic Interventions Therapeutic Interventions Balance Training,Gait Training ,Home Exercise Program,Joint Mobilizations,Manual Therapy, Neuromuscular Re-education, Patient/Caregiver Education, Self-Care/Home Management,Soft Tissue Mobilization, Therapeutic Activities, Therapeutic Exercises Modalities Cold Pack/Ice Massage,Electric Stimulation,Hot Packs, Ultrasound Next Visit Focus/Plan Next Note Type Treatment Note Next Visit Plan cont to progress R LE strength and mobility, initiate dynamic balance, trial e-stim?
--- NOTE | 2023-01-18 13:33 | PT.OTN ---
Current Diagnoses Pain in right knee (01/18/23) Physical Therapy Treatment Note PT-OP-A Visit Information Start: 12/20/22 16:43 Freq: Status: Active Protocol: Document 01/18/23 13:33 AM (Rec: 01/18/23 14:18 AM [id number]) Out-Patient Physical Therapy Visit Information Visit Information Visit Type Treatment Note Visit Start Time 13:33 Visit Stop Time 14:10 Total Visit Minutes 37 Visit Number 11/03 PT-OP-B Current Condition Start: 12/20/22 16:43 Freq: Status: Active Protocol: Document 12/28/22 09:01 AM (Rec: 12/28/22 12:02 AM [id number]) Current Condition History of Current Condition Onset Date [id number] Current Complaints R knee pain History of Current Condition Pt reports that she has fractured bilateral patella. Pt reports that she has had frequent falls. Pt reports history of frequent falls and does not know why she has been falling so much. Pt reports that she fallen 20 times this year. Pt reports that she is going to be meeting with neurologist regarding headaches soon and will discuss fall hx with him. Pt reports that sometimes she trips, sometimes she gets lightheaded and falls, has fallen on the ice. Fall reasons are variable. Pt also reports that she has fibromyalgia and pain at multiple joints. Prior Treatments and Tests Pt denies previous PT for knee . She has worn a knee brace in the past. PT-OP-C Subjective Start: 12/20/22 16:43 Freq: Status: Active Protocol: Document 01/18/23 13:33 AM (Rec: 01/18/23 14:18 AM [id number]) OP-PT Subjective Patient Comments Patient Comments Pt reports that her knees are feeling better today. Pt reports an almost fall, but no falls since previous session. PT-OP-D Balance Start: 12/20/22 16:43 Freq: Status: Active Protocol: Document 12/21/22 08:56 AM (Rec: 12/21/22 14:09 AM [id number]) Balance Tests Single Limb Standing Single Limb- Right 15 Single Limb- Left 15 PT-OP-E Functional Tests Start: 12/20/22 16:43 Freq: Status: Active Protocol: Document 12/21/22 08:56 AM (Rec: 12/21/22 14:09 AM [id number]) Functional Tests Five Times Sit to Stand Test Score 19.28 Comments painful PT-OP-F Manual Assessment Start: 12/20/22 16:43 Freq: Status: Active Protocol: Document 12/21/22 08:56 AM (Rec: 12/21/22 14:09 AM [id number]) Manual Assessments Joint Mobility Assessment Joint Mobility Assessment Hypomobility at Jesus patella PT-OP-G Mobility & Gait Start: 12/20/22 16:43 Freq: Status: Active Protocol: Document 12/21/22 08:56 AM (Rec: 12/21/22 14:09 AM [id number]) OP Gait Assessment Gait Gait Assistance Required: Independent Assistive Devices Assistive Device None Gait Deviations General Gait Pattern Antalgic PT-OP-J Posture/Palpation/Skin Start: 12/20/22 16:43 Freq: Status: Active Protocol: Document 12/21/22 08:56 AM (Rec: 12/21/22 14:09 AM [id number]) Posture Evaluation Position Standing Knee Posture (L) Neutral,(R) Neutral Palpation Assessment Location Right knee Palpation Location R quads, HS Palpation Findings Soft Tissue Tightness,Muscle Guarding,Tenderness PT-OP-K Range of Motion Start: 12/20/22 16:43 Freq: Status: Active Protocol: Document 12/21/22 08:56 AM (Rec: 12/21/22 14:09 AM [id number]) Knee Goniometric Range of Motion Knee Left Knee ROM WFL No Patient Position Supine Flexion Active (degrees) 125 Extension Active (degrees) 0 Comments Hamstring 90/90: 45 deg Right Knee ROM WFL No Patient Position Supine Flexion Active (degrees) 114 Extension Active (degrees) 0 Comments hamstring 90/90 40 deg PT-OP-M Strength Start: 12/20/22 16:43 Freq: Status: Active Protocol: Document 01/11/23 13:35 AM (Rec: 01/11/23 14:19 AM [id number]) Knee Strength Knee Manual Muscle Testing Left Flexion (S2) 4 Good Extension (L3) 4 Good Right Flexion (S2) 4 Good Extension (L3) 4 Good PT-OP-Q Treatments Start: 12/20/22 16:43 Freq: Status: Active Protocol: Document 01/18/23 13:33 AM (Rec: 01/18/23 14:18 AM [id number]) Cardio Equipment Recumbent Stepper (Sci-Fit) Duration (Minutes) 6 Resistance 3 Seat Position 9 Therapeutic Exercises Supine Exercises Bridge Supine Exercise Name Bridge Side bilateral Reps/Minutes x10 SAQ Supine Exercise Name SAQ Side bilateral Resistance 4# Reps/Minutes 2x10 SLR Supine Exercise Name SLR Side bilateral Resistance 2# Standing Exercises wall squat Standing Exercise Name wall squat-mini squat Resistance orange swissball Reps/Minutes x10 Standing TKE Standing Exercise Name Standing TKE Side right Equipment Used blue ball on wall Reps/Minutes 10x3 sec Hip extension Side bilateral Resistance [place] TB Equipment Used railing Reps/Minutes 2x15 Side step Standing Exercise Name resisted side step Resistance [place] TB Reps/Minutes 2x20 ft Standing hamstring stretch Standing Exercise Name hamstring stretch Side bilateral Equipment Used step Reps/Minutes 2x30 sec Other Exercises hip abduction Other Exercise Name hip abduction Side bilateral Resistance [place] TB Equipment Used railing Reps/Minutes 2x15 Manual Therapy Treatment Soft Tissue Mobilization R knee Body Location R quads, adductors, gastroc, ITB Mobilization Type Myofascial Release,Rolling Intensity/Depth Moderate Body Position Supine Comments with rolling pin PT-OP-T Assessment and Plan Start: 12/20/22 16:43 Freq: Status: Active Protocol: Document 01/18/23 13:33 AM (Rec: 01/18/23 14:18 AM [id number]) Physical Therapy Assessment Impairments Impairments Activity Tolerance,Balance, Functional Activities, Functional Mobility,Gait,Pain, Posture,ROM,Soft Tissue Mobility,Strength Goals Swimming Impairment Pt unable to swim secondary to increase in knee pain. Checkroom Attendant Goal (LTG) Pt able to swim without increase in knee pain. LTG Duration 02/01/23 Strength Impairment Knee strength Impairment Pt with 4-/5 knee strength Short Term Goal (STG) Pt with R knee strength grossly at 4/5. 01/11/23: GOAL MET STG Duration 01/11/23 Checkroom Attendant Goal (LTG) Pt with R knee strength grossly at 4+/5 LTG Duration 02/01/23 Walking ability Impairment Pain with ambulating Impairment Pt reports that she is only able to ambulate for 5 min at a time secondary to knee pain. Short Term Goal (STG) Pt able to ambulate for 15 min without need to stop secondary to R knee pain. 01/11/23: Progressing towards goal. Pt reports that she is able to walk 10 min before she needs to sit and take a rest. STG Duration 01/11/23 Checkroom Attendant Goal (LTG) Pt able to ambulate for 30 min without need to stop secondary to R knee pain. LTG Duration 02/01/23 LEFS Impairment LEFS score Impairment Pt had a score of 15/80 on LEFS Short Term Goal (STG) Pt with score of 35/80 in LEFS 01/11/23: PROGRESSING TOWARDS GOAL 24/80 STG Duration 01/11/23 Checkroom Attendant Goal (LTG) Pt with score of 50/80 on LEFS LTG Duration 02/01/23 Pain Impairment Pain rating Impairment Pt reports pain at 9/10 at the highest at her R knee. Short Term Goal (STG) Pt to report pain at 5/10 at the highest. GOAL UNMET: Similar pain complaints compared to IE. STG Duration 01/11/23 [facility] Goal (LTG) Pt to report pain at 3/10 at the highest. LTG Duration 02/01/23 Assessment Summary Assessment Pt tolerated PRE well today. Pt with some increase in knee symptoms with mini wall squat. Pt demonstrates decreasing tenderness along quands and ITB. PT continues to be very stiff at hip flexors. Pt demonstrated improved gait pattern today. Pt would benefit from continued PT to progress LE strength and mobility to improve tolerance to functional activities. Physical Therapy Plan Frequency and Duration Frequency of Treatment 2x/Week Duration of treatment (weeks) 6 Plan of Care Start Date 12/21/22 Plan of Care End Date 02/01/23 Therapeutic Interventions Therapeutic Interventions Balance Training,Gait Training ,Home Exercise Program,Joint Mobilizations,Manual Therapy, Neuromuscular Re-education, Patient/Caregiver Education, Self-Care/Home Management,Soft Tissue Mobilization, Therapeutic Activities, Therapeutic Exercises Modalities Cold Pack/Ice Massage,Electric Stimulation,Hot Packs, Ultrasound Next Visit Focus/Plan Next Note Type Treatment Note Next Visit Plan cont to progress R LE strength and mobility, initiate dynamic balance, trial e-stim?
--- NOTE | 2023-01-21 13:35 | PT.OTN ---
Current Diagnoses Pain in right knee (01/21/23) Physical Therapy Treatment Note PT-OP-A Visit Information Start: 12/20/22 16:43 Freq: Status: Active Protocol: Document 01/21/23 13:35 AM (Rec: 01/21/23 14:19 AM [id number]) Out-Patient Physical Therapy Visit Information Visit Information Visit Type Treatment Note Visit Start Time 13:35 Visit Stop Time 14:12 Total Visit Minutes 37 Visit Number 12/04 PT-OP-B Current Condition Start: 12/20/22 16:43 Freq: Status: Active Protocol: Document 12/28/22 09:01 AM (Rec: 12/28/22 12:02 AM [id number]) Current Condition History of Current Condition Onset Date [id number] Current Complaints R knee pain History of Current Condition Pt reports that she has fractured bilateral patella. Pt reports that she has had frequent falls. Pt reports history of frequent falls and does not know why she has been falling so much. Pt reports that she fallen 20 times this year. Pt reports that she is going to be meeting with neurologist regarding headaches soon and will discuss fall hx with him. Pt reports that sometimes she trips, sometimes she gets lightheaded and falls, has fallen on the ice. Fall reasons are variable. Pt also reports that she has fibromyalgia and pain at multiple joints. Prior Treatments and Tests Pt denies previous PT for knee . She has worn a knee brace in the past. PT-OP-C Subjective Start: 12/20/22 16:43 Freq: Status: Active Protocol: Document 01/21/23 13:35 AM (Rec: 01/21/23 14:19 AM [id number]) OP-PT Subjective Patient Comments Patient Comments Pt reports that she fell on Tuesday after last session. She felt that her R knee buckled on her. PT-OP-D Balance Start: 12/20/22 16:43 Freq: Status: Active Protocol: Document 12/21/22 08:56 AM (Rec: 12/21/22 14:09 AM [id number]) Balance Tests Single Limb Standing Single Limb- Right 15 Single Limb- Left 15 PT-OP-E Functional Tests Start: 12/20/22 16:43 Freq: Status: Active Protocol: Document 12/21/22 08:56 AM (Rec: 12/21/22 14:09 AM [id number]) Functional Tests Five Times Sit to Stand Test Score 19.28 Comments painful PT-OP-F Manual Assessment Start: 12/20/22 16:43 Freq: Status: Active Protocol: Document 12/21/22 08:56 AM (Rec: 12/21/22 14:09 AM [id number]) Manual Assessments Joint Mobility Assessment Joint Mobility Assessment Hypomobility at Jesus patella PT-OP-G Mobility & Gait Start: 12/20/22 16:43 Freq: Status: Active Protocol: Document 12/21/22 08:56 AM (Rec: 12/21/22 14:09 AM [id number]) OP Gait Assessment Gait Gait Assistance Required: Independent Assistive Devices Assistive Device None Gait Deviations General Gait Pattern Antalgic PT-OP-J Posture/Palpation/Skin Start: 12/20/22 16:43 Freq: Status: Active Protocol: Document 12/21/22 08:56 AM (Rec: 12/21/22 14:09 AM [id number]) Posture Evaluation Position Standing Knee Posture (L) Neutral,(R) Neutral Palpation Assessment Location Right knee Palpation Location R quads, HS Palpation Findings Soft Tissue Tightness,Muscle Guarding,Tenderness PT-OP-K Range of Motion Start: 12/20/22 16:43 Freq: Status: Active Protocol: Document 12/21/22 08:56 AM (Rec: 12/21/22 14:09 AM [id number]) Knee Goniometric Range of Motion Knee Left Knee ROM WFL No Patient Position Supine Flexion Active (degrees) 125 Extension Active (degrees) 0 Comments Hamstring 90/90: 45 deg Right Knee ROM WFL No Patient Position Supine Flexion Active (degrees) 114 Extension Active (degrees) 0 Comments hamstring 90/90 40 deg PT-OP-M Strength Start: 12/20/22 16:43 Freq: Status: Active Protocol: Document 01/11/23 13:35 AM (Rec: 01/11/23 14:19 AM [id number]) Knee Strength Knee Manual Muscle Testing Left Flexion (S2) 4 Good Extension (L3) 4 Good Right Flexion (S2) 4 Good Extension (L3) 4 Good PT-OP-Q Treatments Start: 12/20/22 16:43 Freq: Status: Active Protocol: Document 01/21/23 13:35 AM (Rec: 01/21/23 14:19 AM [id number]) Cardio Equipment Recumbent Stepper (Sci-Fit) Duration (Minutes) 6 Resistance 3 Seat Position 9 Gym Equipment Shuttle Balance Blue Details NBOS, tandem stance, SLS Comments head turns and EC Therapeutic Exercises Standing Exercises Standing hamstring stretch Standing Exercise Name hamstring stretch Side bilateral Equipment Used step Reps/Minutes 2x30 sec Calf stretch Standing Exercise Name standing calf stretch Side bilateral Equipment Used wedge and railing for UE support Reps/Minutes 2x30 sec Manual Therapy Treatment Soft Tissue Mobilization R knee Body Location R quads, adductors, gastroc, ITB Mobilization Type Myofascial Release,Rolling Intensity/Depth Moderate Body Position Supine Comments with rolling pin Manual Techniques Manual hip flexor stretch Type Alok Reps/Duration 2x30 sec ea LE PT-OP-T Assessment and Plan Start: 12/20/22 16:43 Freq: Status: Active Protocol: Document 01/21/23 13:35 AM (Rec: 01/21/23 14:19 AM [id number]) Physical Therapy Assessment Impairments Impairments Activity Tolerance,Balance, Functional Activities, Functional Mobility,Gait,Pain, Posture,ROM,Soft Tissue Mobility,Strength Goals Swimming Impairment Pt unable to swim secondary to increase in knee pain. Muffler Tender Goal (LTG) Pt able to swim without increase in knee pain. LTG Duration 02/01/23 Strength Impairment Knee strength Impairment Pt with 4-/5 knee strength Short Term Goal (STG) Pt with R knee strength grossly at 4/5. 01/11/23: GOAL MET STG Duration 01/11/23 Muffler Tender Goal (LTG) Pt with R knee strength grossly at 4+/5 LTG Duration 02/01/23 Walking ability Impairment Pain with ambulating Impairment Pt reports that she is only able to ambulate for 5 min at a time secondary to knee pain. Short Term Goal (STG) Pt able to ambulate for 15 min without need to stop secondary to R knee pain. 01/11/23: Progressing towards goal. Pt reports that she is able to walk 10 min before she needs to sit and take a rest. STG Duration 01/11/23 [facility] Goal (LTG) Pt able to ambulate for 30 min without need to stop secondary to R knee pain. LTG Duration 02/01/23 LEFS Impairment LEFS score Impairment Pt had a score of 15/80 on LEFS Short Term Goal (STG) Pt with score of 35/80 in LEFS 01/11/23: PROGRESSING TOWARDS GOAL 24/80 STG Duration 01/11/23 Muffler Tender Goal (LTG) Pt with score of 50/80 on LEFS LTG Duration 02/01/23 Pain Impairment Pain rating Impairment Pt reports pain at 9/10 at the highest at her R knee. Short Term Goal (STG) Pt to report pain at 5/10 at the highest. GOAL UNMET: Similar pain complaints compared to IE. STG Duration 01/11/23 [facility] Goal (LTG) Pt to report pain at 3/10 at the highest. LTG Duration 02/01/23 Assessment Summary Assessment Pt tolerated PRE well today. Pt without reported increase in symptoms. Pt challenged with balance exercises, particularly when vision is altered. Pt will return next week to progress strength and mobility ast tolerated. Physical Therapy Plan Frequency and Duration Frequency of Treatment 2x/Week Duration of treatment (weeks) 6 Plan of Care Start Date 12/21/22 Plan of Care End Date 02/01/23 Therapeutic Interventions Therapeutic Interventions Balance Training,Gait Training ,Home Exercise Program,Joint Mobilizations,Manual Therapy, Neuromuscular Re-education, Patient/Caregiver Education, Self-Care/Home Management,Soft Tissue Mobilization, Therapeutic Activities, Therapeutic Exercises Modalities Cold Pack/Ice Massage,Electric Stimulation,Hot Packs, Ultrasound Next Visit Focus/Plan Next Note Type Treatment Note Next Visit Plan cont to progress R LE strength and mobility, initiate dynamic balance
--- NOTE | 2023-01-25 13:31 | PT.OTN ---
Current Diagnoses Pain in right knee (01/25/23) Physical Therapy Treatment Note PT-OP-A Visit Information Start: 12/20/22 16:43 Freq: Status: Active Protocol: Document 01/25/23 13:31 AM (Rec: 01/25/23 14:41 AM [id number]) Out-Patient Physical Therapy Visit Information Visit Information Visit Type Treatment Note Visit Start Time 13:31 Visit Stop Time 14:08 Total Visit Minutes 37 Visit Number 01/04 PT-OP-B Current Condition Start: 12/20/22 16:43 Freq: Status: Active Protocol: Document 12/28/22 09:01 AM (Rec: 12/28/22 12:02 AM [id number]) Current Condition History of Current Condition Onset Date [id number] Current Complaints R knee pain History of Current Condition Pt reports that she has fractured bilateral patella. Pt reports that she has had frequent falls. Pt reports history of frequent falls and does not know why she has been falling so much. Pt reports that she fallen 20 times this year. Pt reports that she is going to be meeting with neurologist regarding headaches soon and will discuss fall hx with him. Pt reports that sometimes she trips, sometimes she gets lightheaded and falls, has fallen on the ice. Fall reasons are variable. Pt also reports that she has fibromyalgia and pain at multiple joints. Prior Treatments and Tests Pt denies previous PT for knee . She has worn a knee brace in the past. PT-OP-C Subjective Start: 12/20/22 16:43 Freq: Status: Active Protocol: Document 01/25/23 13:31 AM (Rec: 01/25/23 14:41 AM [id number]) OP-PT Subjective Patient Comments Patient Comments Pt reports that her knee continues to be stiff and sore . Pt reports that she has been noticing more popping at her R knee. Pt reports that she is going to see her referring provider on Jan 31. PT-OP-D Balance Start: 12/20/22 16:43 Freq: Status: Active Protocol: Document 12/21/22 08:56 AM (Rec: 12/21/22 14:09 AM [id number]) Balance Tests Single Limb Standing Single Limb- Right 15 Single Limb- Left 15 PT-OP-E Functional Tests Start: 12/20/22 16:43 Freq: Status: Active Protocol: Document 12/21/22 08:56 AM (Rec: 12/21/22 14:09 AM [id number]) Functional Tests Five Times Sit to Stand Test Score 19.28 Comments painful PT-OP-F Manual Assessment Start: 12/20/22 16:43 Freq: Status: Active Protocol: Document 12/21/22 08:56 AM (Rec: 12/21/22 14:09 AM [id number]) Manual Assessments Joint Mobility Assessment Joint Mobility Assessment Hypomobility at Jesus patella PT-OP-G Mobility & Gait Start: 12/20/22 16:43 Freq: Status: Active Protocol: Document 12/21/22 08:56 AM (Rec: 12/21/22 14:09 AM [id number]) OP Gait Assessment Gait Gait Assistance Required: Independent Assistive Devices Assistive Device None Gait Deviations General Gait Pattern Antalgic PT-OP-J Posture/Palpation/Skin Start: 12/20/22 16:43 Freq: Status: Active Protocol: Document 12/21/22 08:56 AM (Rec: 12/21/22 14:09 AM [id number]) Posture Evaluation Position Standing Knee Posture (L) Neutral,(R) Neutral Palpation Assessment Location Right knee Palpation Location R quads, HS Palpation Findings Soft Tissue Tightness,Muscle Guarding,Tenderness PT-OP-K Range of Motion Start: 12/20/22 16:43 Freq: Status: Active Protocol: Document 12/21/22 08:56 AM (Rec: 12/21/22 14:09 AM [id number]) Knee Goniometric Range of Motion Knee Left Knee ROM WFL No Patient Position Supine Flexion Active (degrees) 125 Extension Active (degrees) 0 Comments Hamstring 90/90: 45 deg Right Knee ROM WFL No Patient Position Supine Flexion Active (degrees) 114 Extension Active (degrees) 0 Comments hamstring 90/90 40 deg PT-OP-M Strength Start: 12/20/22 16:43 Freq: Status: Active Protocol: Document 01/11/23 13:35 AM (Rec: 01/11/23 14:19 AM [id number]) Knee Strength Knee Manual Muscle Testing Left Flexion (S2) 4 Good Extension (L3) 4 Good Right Flexion (S2) 4 Good Extension (L3) 4 Good PT-OP-Q Treatments Start: 12/20/22 16:43 Freq: Status: Active Protocol: Document 01/25/23 13:31 AM (Rec: 01/25/23 14:41 AM [id number]) Cardio Equipment Recumbent Elliptical (BiodmyRete) Duration (Minutes) 5 Resistance 2 Seat Position 4 Other Pt reported this machine was more comfortable than sci-fit on knees. Gym Equipment Shuttle Recovery leg press Details Ball between knees for VMO Resistance 50# (2 navy) Shuttle Recovery Platform Stable Reps/Time 2x10 Therapeutic Exercises Standing Exercises Hip extension Side bilateral Resistance OTB Equipment Used railing Reps/Minutes 2x10 Side step Standing Exercise Name resisted side step Resistance OTB Reps/Minutes 2x20 ft Standing hamstring stretch Standing Exercise Name hamstring stretch Side bilateral Equipment Used step Reps/Minutes 2x30 sec Calf stretch Standing Exercise Name standing calf stretch Side bilateral Equipment Used wedge and railing for UE support Reps/Minutes 2x30 sec Other Exercises hip abduction Other Exercise Name hip abduction Side bilateral Resistance OTB Equipment Used railing Reps/Minutes 2x10 Manual Therapy Treatment Soft Tissue Mobilization R knee Body Location R quads, adductors, gastroc, ITB Mobilization Type Myofascial Release,Rolling Intensity/Depth Moderate Body Position Supine Comments with rolling pin PT-OP-T Assessment and Plan Start: 12/20/22 16:43 Freq: Status: Active Protocol: Document 01/25/23 13:31 AM (Rec: 01/25/23 14:41 AM [id number]) Physical Therapy Assessment Impairments Impairments Activity Tolerance,Balance, Functional Activities, Functional Mobility,Gait,Pain, Posture,ROM,Soft Tissue Mobility,Strength Goals Swimming Impairment Pt unable to swim secondary to increase in knee pain. Nursing Home Goal (LTG) Pt able to swim without increase in knee pain. LTG Duration 02/01/23 Strength Impairment Knee strength Impairment Pt with 4-/5 knee strength Short Term Goal (STG) Pt with R knee strength grossly at 4/5. 01/11/23: GOAL MET STG Duration 01/11/23 Nursing Home Goal (LTG) Pt with R knee strength grossly at 4+/5 LTG Duration 02/01/23 Walking ability Impairment Pain with ambulating Impairment Pt reports that she is only able to ambulate for 5 min at a time secondary to knee pain. Short Term Goal (STG) Pt able to ambulate for 15 min without need to stop secondary to R knee pain. 01/11/23: Progressing towards goal. Pt reports that she is able to walk 10 min before she needs to sit and take a rest. STG Duration 01/11/23 Center Line Cutter Operator Goal (LTG) Pt able to ambulate for 30 min without need to stop secondary to R knee pain. LTG Duration 02/01/23 LEFS Impairment LEFS score Impairment Pt had a score of 15/80 on LEFS Short Term Goal (STG) Pt with score of 35/80 in LEFS 01/11/23: PROGRESSING TOWARDS GOAL 24/80 STG Duration 01/11/23 Nursing Home Goal (LTG) Pt with score of 50/80 on LEFS LTG Duration 02/01/23 Pain Impairment Pain rating Impairment Pt reports pain at 9/10 at the highest at her R knee. Short Term Goal (STG) Pt to report pain at 5/10 at the highest. GOAL UNMET: Similar pain complaints compared to IE. STG Duration 01/11/23 Nursing Home Goal (LTG) Pt to report pain at 3/10 at the highest. LTG Duration 02/01/23 Assessment Summary Assessment Pt tolerated PRE well today. Pt demonstrates continued stiffness at hip flexors and ITB. Pt with improved tolerance to CKC flexion on shuttle recovery machine compared to previous attempt. Physical Therapy Plan Frequency and Duration Frequency of Treatment 2x/Week Duration of treatment (weeks) 6 Plan of Care Start Date 12/21/22 Plan of Care End Date 02/01/23 Therapeutic Interventions Therapeutic Interventions Balance Training,Gait Training ,Home Exercise Program,Joint Mobilizations,Manual Therapy, Neuromuscular Re-education, Patient/Caregiver Education, Self-Care/Home Management,Soft Tissue Mobilization, Therapeutic Activities, Therapeutic Exercises Modalities Cold Pack/Ice Massage,Electric Stimulation,Hot Packs, Ultrasound Next Visit Focus/Plan Next Note Type Treatment Note Next Visit Plan reassess, ITB Stretch
--- NOTE | 2023-01-28 13:35 | PT.OTN ---
Current Diagnoses Pain in right knee (01/28/23) Physical Therapy Treatment Note PT-OP-A Visit Information Start: 12/20/22 16:43 Freq: Status: Active Protocol: Document 01/28/23 13:35 AM (Rec: 01/28/23 13:43 AM [id number]) Out-Patient Physical Therapy Visit Information Visit Information Visit Type Treatment Note Visit Start Time 13:35 Visit Stop Time 14:12 Total Visit Minutes 37 Visit Number 02/03 PT-OP-B Current Condition Start: 12/20/22 16:43 Freq: Status: Active Protocol: Document 12/28/22 09:01 AM (Rec: 12/28/22 12:02 AM [id number]) Current Condition History of Current Condition Onset Date [id number] Current Complaints R knee pain History of Current Condition Pt reports that she has fractured bilateral patella. Pt reports that she has had frequent falls. Pt reports history of frequent falls and does not know why she has been falling so much. Pt reports that she fallen 20 times this year. Pt reports that she is going to be meeting with neurologist regarding headaches soon and will discuss fall hx with him. Pt reports that sometimes she trips, sometimes she gets lightheaded and falls, has fallen on the ice. Fall reasons are variable. Pt also reports that she has fibromyalgia and pain at multiple joints. Prior Treatments and Tests Pt denies previous PT for knee . She has worn a knee brace in the past. PT-OP-C Subjective Start: 12/20/22 16:43 Freq: Status: Active Protocol: Document 01/28/23 13:35 AM (Rec: 01/28/23 13:43 AM [id number]) OP-PT Subjective Patient Comments Patient Comments Pt reports that her R knee was very painful yesterday while sitting. Pt cannot think of anything that she had done prior to sitting that would have caused increase in pain. Pt has f/u with referring provider on 01/31/23. PT-OP-D Balance Start: 12/20/22 16:43 Freq: Status: Active Protocol: Document 12/21/22 08:56 AM (Rec: 12/21/22 14:09 AM [id number]) Balance Tests Single Limb Standing Single Limb- Right 15 Single Limb- Left 15 PT-OP-E Functional Tests Start: 12/20/22 16:43 Freq: Status: Active Protocol: Document 01/28/23 13:35 AM (Rec: 01/28/23 13:45 AM [id number]) Functional Tests Five Times Sit to Stand Test Score 15.15 PT-OP-F Manual Assessment Start: 12/20/22 16:43 Freq: Status: Active Protocol: Document 12/21/22 08:56 AM (Rec: 12/21/22 14:09 AM [id number]) Manual Assessments Joint Mobility Assessment Joint Mobility Assessment Hypomobility at Jesus patella PT-OP-G Mobility & Gait Start: 12/20/22 16:43 Freq: Status: Active Protocol: Document 12/21/22 08:56 AM (Rec: 12/21/22 14:09 AM [id number]) OP Gait Assessment Gait Gait Assistance Required: Independent Assistive Devices Assistive Device None Gait Deviations General Gait Pattern Antalgic PT-OP-J Posture/Palpation/Skin Start: 12/20/22 16:43 Freq: Status: Active Protocol: Document 12/21/22 08:56 AM (Rec: 12/21/22 14:09 AM [id number]) Posture Evaluation Position Standing Knee Posture (L) Neutral,(R) Neutral Palpation Assessment Location Right knee Palpation Location R quads, HS Palpation Findings Soft Tissue Tightness,Muscle Guarding,Tenderness PT-OP-K Range of Motion Start: 12/20/22 16:43 Freq: Status: Active Protocol: Document 01/28/23 13:35 AM (Rec: 01/28/23 13:45 AM [id number]) Knee Goniometric Range of Motion Knee Left Knee ROM WFL Yes Patient Position Supine Flexion Active (degrees) 132 Extension Active (degrees) 0 Comments 90/90: 30 deg Right Knee ROM WFL Yes Patient Position Supine Flexion Active (degrees) 132 Extension Active (degrees) 0 Comments 90/90 HS: 36 deg PT-OP-M Strength Start: 12/20/22 16:43 Freq: Status: Active Protocol: Document 01/28/23 13:35 AM (Rec: 01/28/23 13:46 AM [id number]) Knee Strength Knee Manual Muscle Testing Left Flexion (S2) 4 Good Extension (L3) 4 Good Right Flexion (S2) 4 Good Extension (L3) 4 Good PT-OP-Q Treatments Start: 12/20/22 16:43 Freq: Status: Active Protocol: Document 01/28/23 13:35 AM (Rec: 01/28/23 13:43 AM [id number]) Cardio Equipment Recumbent Elliptical (Biodex) Duration (Minutes) 5 Resistance 2 Seat Position 4 Gym Equipment Shuttle Recovery leg press Details Ball between knees for VMO Resistance 50# (2 navy) Shuttle Recovery Platform Stable Reps/Time 2x10 Therapeutic Exercises Supine Exercises Bridge Supine Exercise Name With ball between knees to increased VMO Equipment Used blue ball Reps/Minutes 2x10 Sidelying Exercises Clamshells Side bilateral Reps/Minutes 2x10 Comments cues for trunk stability Standing Exercises Chair squat Reps/Minutes x5 Standing hamstring stretch Standing Exercise Name hamstring stretch Side bilateral Equipment Used step Reps/Minutes 2x30 sec Calf stretch Standing Exercise Name standing calf stretch Side bilateral Equipment Used wedge and railing for UE support Reps/Minutes 2x30 sec PT-OP-T Assessment and Plan Start: 12/20/22 16:43 Freq: Status: Active Protocol: Document 01/28/23 13:35 AM (Rec: 01/28/23 13:43 AM [id number]) Physical Therapy Assessment Goals Swimming Impairment Pt unable to swim secondary to increase in knee pain. [employer] Maintainer Goal (LTG) Pt able to swim without increase in knee pain. LTG Duration 02/01/23 Strength Impairment Knee strength Impairment Pt with 4-/5 knee strength Short Term Goal (STG) Pt with R knee strength grossly at 4/5. 01/11/23: GOAL MET STG Duration 01/11/23 [employer] Maintainer Goal (LTG) Pt with R knee strength grossly at 4+/5 LTG Duration 02/01/23 Walking ability Impairment Pain with ambulating Impairment Pt reports that she is only able to ambulate for 5 min at a time secondary to knee pain. Short Term Goal (STG) Pt able to ambulate for 15 min without need to stop secondary to R knee pain. 01/11/23: Progressing towards goal. Pt reports that she is able to walk 10 min before she needs to sit and take a rest. STG Duration 01/11/23 Halfway Goal (LTG) Pt able to ambulate for 30 min without need to stop secondary to R knee pain. 01/28/23: Pt able to ambulate for 10-15 min before need to rest. LTG Duration 02/01/23 LEFS Impairment LEFS score Impairment Pt had a score of 15/80 on LEFS Short Term Goal (STG) Pt with score of 35/80 in LEFS 01/11/23: PROGRESSING TOWARDS GOAL 24/80 STG Duration 01/11/23 Halfway Goal (LTG) Pt with score of 50/80 on LEFS LTG Duration 02/01/23 Pain Impairment Pain rating Impairment Pt reports pain at 9/10 at the highest at her R knee. Short Term Goal (STG) Pt to report pain at 5/10 at the highest. GOAL UNMET: Similar pain complaints compared to IE. STG Duration 01/11/23 Halfway Goal (LTG) Pt to report pain at 3/10 at the highest. 01/28/23: Goal unmet, Pt continues to report 9/10 or higher pain rating. LTG Duration 02/01/23 Assessment Summary Assessment Pt with improved score on 5xSTS test compared to IE. Pt also demonstrates improved knee flexion ROM at 0-132 deg, though reports pain at end range. Pt demonstrates continued antalgic gait with wide MANI during gait and decreased knee flexion. Pt with stiffness at R hip flexors and ITB, with stretches added to HEP today. Pt will see referring provider on Tuesday and will determine POC moving forward. Physical Therapy Plan Frequency and Duration Frequency of Treatment 2x/Week Duration of treatment (weeks) 6 Plan of Care Start Date 12/21/22 Plan of Care End Date 02/01/23 Therapeutic Interventions Therapeutic Interventions Balance Training,Gait Training ,Home Exercise Program,Joint Mobilizations,Manual Therapy, Neuromuscular Re-education, Patient/Caregiver Education, Self-Care/Home Management,Soft Tissue Mobilization, Therapeutic Activities, Therapeutic Exercises Modalities Cold Pack/Ice Massage,Electric Stimulation,Hot Packs, Ultrasound Next Visit Focus/Plan Next Note Type Treatment Note Next Visit Plan Cont to progress strength and mobility, update POC
--- NOTE | 2023-01-31 14:27 | PT.OTN ---
Current Diagnoses Pain in right knee (01/31/23) Physical Therapy Treatment Note PT-OP-A Visit Information Start: 12/20/22 16:43 Freq: Status: Active Protocol: Document 01/31/23 14:27 AM (Rec: 01/31/23 15:05 AM [id number]) Out-Patient Physical Therapy Visit Information Visit Information Visit Type Discharge Summary Visit Start Time 14:23 Visit Stop Time 15:00 Total Visit Minutes 37 Visit Number 03/06 PT-OP-B Current Condition Start: 12/20/22 16:43 Freq: Status: Active Protocol: Document 12/28/22 09:01 AM (Rec: 12/28/22 12:02 AM [id number]) Current Condition History of Current Condition Onset Date 8080-1117 Current Complaints R knee pain History of Current Condition Pt reports that she has fractured bilateral patella. Pt reports that she has had frequent falls. Pt reports history of frequent falls and does not know why she has been falling so much. Pt reports that she fallen 20 times this year. Pt reports that she is going to be meeting with neurologist regarding headaches soon and will discuss fall hx with him. Pt reports that sometimes she trips, sometimes she gets lightheaded and falls, has fallen on the ice. Fall reasons are variable. Pt also reports that she has fibromyalgia and pain at multiple joints. Prior Treatments and Tests Pt denies previous PT for knee . She has worn a knee brace in the past. PT-OP-C Subjective Start: 12/20/22 16:43 Freq: Status: Active Protocol: Document 01/31/23 14:27 AM (Rec: 01/31/23 15:05 AM [id number]) OP-PT Subjective Patient Comments Patient Comments Pt reports that she saw her PCP today. They did x-rays and she had blood work. They are also going to refer to ortho. PT-OP-D Balance Start: 12/20/22 16:43 Freq: Status: Active Protocol: Document 12/21/22 08:56 AM (Rec: 12/21/22 14:09 AM [id number]) Balance Tests Single Limb Standing Single Limb- Right 15 Single Limb- Left 15 PT-OP-E Functional Tests Start: 12/20/22 16:43 Freq: Status: Active Protocol: Document 01/28/23 13:35 AM (Rec: 01/28/23 13:45 AM [id number]) Functional Tests Five Times Sit to Stand Test Score 15.15 PT-OP-F Manual Assessment Start: 12/20/22 16:43 Freq: Status: Active Protocol: Document 12/21/22 08:56 AM (Rec: 12/21/22 14:09 AM [id number]) Manual Assessments Joint Mobility Assessment Joint Mobility Assessment Hypomobility at Jesus patella PT-OP-G Mobility & Gait Start: 12/20/22 16:43 Freq: Status: Active Protocol: Document 12/21/22 08:56 AM (Rec: 12/21/22 14:09 AM [id number]) OP Gait Assessment Gait Gait Assistance Required: Independent Assistive Devices Assistive Device None Gait Deviations General Gait Pattern Antalgic PT-OP-J Posture/Palpation/Skin Start: 12/20/22 16:43 Freq: Status: Active Protocol: Document 12/21/22 08:56 AM (Rec: 12/21/22 14:09 AM [id number]) Posture Evaluation Position Standing Knee Posture (L) Neutral,(R) Neutral Palpation Assessment Location Right knee Palpation Location R quads, HS Palpation Findings Soft Tissue Tightness,Muscle Guarding,Tenderness PT-OP-K Range of Motion Start: 12/20/22 16:43 Freq: Status: Active Protocol: Document 01/28/23 13:35 AM (Rec: 01/28/23 13:45 AM [id number]) Knee Goniometric Range of Motion Knee Left Knee ROM WFL Yes Patient Position Supine Flexion Active (degrees) 132 Extension Active (degrees) 0 Comments 90/90: 30 deg Right Knee ROM WFL Yes Patient Position Supine Flexion Active (degrees) 132 Extension Active (degrees) 0 Comments 90/90 HS: 36 deg PT-OP-M Strength Start: 12/20/22 16:43 Freq: Status: Active Protocol: Document 01/28/23 13:35 AM (Rec: 01/28/23 13:46 AM [id number]) Knee Strength Knee Manual Muscle Testing Left Flexion (S2) 4 Good Extension (L3) 4 Good Right Flexion (S2) 4 Good Extension (L3) 4 Good PT-OP-Q Treatments Start: 12/20/22 16:43 Freq: Status: Active Protocol: Document 01/31/23 14:27 AM (Rec: 01/31/23 15:05 AM [id number]) Cardio Equipment Recumbent Elliptical (Biodex) Duration (Minutes) 5 Resistance 2 Seat Position 4 Therapeutic Exercises Supine Exercises Bridge Reps/Minutes 2x10 SAQ Side right Reps/Minutes x20 SLR Side right Reps/Minutes x10 Sidelying Exercises Clamshells Side bilateral Resistance OTB Reps/Minutes 2x10 Comments cues for trunk stability Standing Exercises Standing TKE Standing Exercise Name against wall Resistance ball Reps/Minutes 10x5 sec Hip extension Side bilateral Resistance OTB Equipment Used railing Reps/Minutes 2x10 Side step Standing Exercise Name resisted side step Resistance OTB Reps/Minutes 2x20 ft Other Exercises hip abduction Other Exercise Name hip abduction Side bilateral Resistance OTB Equipment Used railing Reps/Minutes 2x10 PT-OP-T Assessment and Plan Start: 12/20/22 16:43 Freq: Status: Active Protocol: Document 01/31/23 14:27 AM (Rec: 01/31/23 15:05 AM [id number]) Physical Therapy Assessment Impairments Impairments Activity Tolerance,Balance, Functional Activities, Functional Mobility,Gait,Pain, Posture,ROM,Soft Tissue Mobility,Strength Goals Swimming Impairment Pt unable to swim secondary to increase in knee pain. Assisted Goal (LTG) Pt able to swim without increase in knee pain. 01/31/23: Pt has not tried swimming secondary seasonal changes. LTG Duration 02/01/23 Strength Impairment Knee strength Impairment Pt with 4-/5 knee strength Short Term Goal (STG) Pt with R knee strength grossly at 4/5. 01/11/23: GOAL MET STG Duration 01/11/23 Assisted Goal (LTG) Pt with R knee strength grossly at 4+/5 LTG Duration 02/01/23 Walking ability Impairment Pain with ambulating Impairment Pt reports that she is only able to ambulate for 5 min at a time secondary to knee pain. Short Term Goal (STG) Pt able to ambulate for 15 min without need to stop secondary to R knee pain. 01/11/23: Progressing towards goal. Pt reports that she is able to walk 10 min before she needs to sit and take a rest. STG Duration 01/11/23 Assisted Goal (LTG) Pt able to ambulate for 30 min without need to stop secondary to R knee pain. 01/28/23: Pt able to ambulate for 10-15 min before need to rest. LTG Duration 02/01/23 LEFS Impairment LEFS score Impairment Pt had a score of 15/80 on LEFS Short Term Goal (STG) Pt with score of 35/80 in LEFS 01/11/23: PROGRESSING TOWARDS GOAL 24/80 STG Duration 01/11/23 Shagger Goal (LTG) Pt with score of 50/80 on LEFS 01/31/23: LEFS score at 14/80. LTG Duration 02/01/23 Pain Impairment Pain rating Impairment Pt reports pain at 9/10 at the highest at her R knee. Short Term Goal (STG) Pt to report pain at 5/10 at the highest. GOAL UNMET: Similar pain complaints compared to IE. STG Duration 01/11/23 Assisted Goal (LTG) Pt to report pain at 3/10 at the highest. 01/28/23: Goal unmet, Pt continues to report 9/10 or higher pain rating. LTG Duration 02/01/23 Assessment Summary Assessment Pt d/c with HEP today. PT demonstrates good understanding of HEP. Pt had x -ray today and is getting referral to ortho for further analysis of knee. Pt with improved strength and knee mobility since start of PT, though continues to report pain with functional tasks/ gait. Pt encouraged to continue HEP and follow-up with PT in future if further questions regarding HEP. Physical Therapy Plan Frequency and Duration Frequency of Treatment 2x/Week Duration of treatment (weeks) 6 Plan of Care Start Date 12/21/22 Plan of Care End Date 02/01/23 Therapeutic Interventions Therapeutic Interventions Balance Training,Gait Training ,Home Exercise Program,Joint Mobilizations,Manual Therapy, Neuromuscular Re-education, Patient/Caregiver Education, Self-Care/Home Management,Soft Tissue Mobilization, Therapeutic Activities, Therapeutic Exercises Modalities Cold Pack/Ice Massage,Electric Stimulation,Hot Packs, Ultrasound Discharge Physical Therapy Discharge Reasons No Longer Attending PT Discharge Comments Pt exhaused PT benefits. Pt will be seeing ortho and will f/u in future if needed. Next Visit Focus/Plan Next Note Type Treatment Note Next Visit Plan Cont to progress strength and mobility, update POC
== END 2023-02-08 10:51 | disposition home or self-care (01) ==
LOC: PHYS 14:15
PROVIDERS: Family Provider Family Medicine; PCP Family Medicine; Referring Provider Family Medicine; Visit Provider Family Medicine
DX: M25.561 Pain in right knee (principal)
CPT/HCPCS: 97110; 97140; 97161

== ENCOUNTER 2023-09-14 09:45 | Outpatient (RCR) | payer OTHER, MEDICAID, SELFPAY ==
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
--- NOTE | 2023-08-22 16:00 | PT-OP ANOTE ---
PT called and left message for surgeon at [phone] regarding pt progress and her upcoming appt with Dr. Carmona tomorrow. PT recommended further assessment as pt not progressing with ROM or strength consistently since evaluation. Informed in message that PT sent last progress note today
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
--- NOTE | 2023-09-14 15:32 | PT.OPPOC ---
Physical, Occupational & Speech Therapy At [facility] Current Diagnoses Other lack of coordination (09/14/23) Weakness (09/14/23) Sprain of lateral collateral ligament of right knee, subsequent encounter (09/14/23) Visit Care Team Role Provider Type Phillip Nunez MD Family Provider Physician Primary Care Provider Specialty: Family Practice Address: [address] [place] [address], [address], [place], [address] Email: [email or web address] Phil Carmona MD Attending Provider Non-Staff Referring Provider Specialty: Orthopedic Surgery Address: [address] [place] [address], [place], [address] Email: Plan Of Care PT-OP-T Assessment and Plan Start: 06/21/23 14:43 Freq: Status: Active Protocol: Document 09/14/23 09:53 NM (Rec: 09/14/23 10:33 NM [id number]) Physical Therapy Assessment Goals AROM 2 Impairment R knee extension 10 deg lacking Short Term Goal (STG) Pt will increase R knee extension AROM to at least 5 deg lacking in order to achieve terminal knee extension during gait, stairs STG Duration 6 weeks Panel Machine Operator Goal (LTG) Pt will increase R knee extension AROM to 2 deg or less lacking in order to achieve terminal knee extension during gait, stairs 07/27/23: -1 deg, 0 with quad set 08/15/23: -3 deg w/o quad set, 0 deg w/ quad set 08/22/23: 0 deg ext 09/14/23: lacking 6 deg AROM, 4 deg PROM LTG Duration 12 weeks NOT MET 09/14/23 AROM Impairment R knee flexion 119 deg Short Term Goal (STG) Pt will improve R knee flexion >122 deg in order to demonstrate increased knee flexion required for stairs, gait 07/27/23: 130 deg 08/22/23: 120 deg STG Duration 6 weeks MET Intermediate Goal (LTG) Pt will improve R knee flexion >125 deg in order to demonstrate increased knee flexion required for stairs, gait 07/27/23: 130 deg 08/22/23: 120 deg 09/14/23: 124 deg flexion LTG Duration 12 weeks NOT MET 09/14/23 Strength Impairment R knee flex/ext MMT 3-/5 Short Term Goal (STG) Pt will improve R knee flexion and extension MMT to at least 4-/5 in order to demonstrate increased R knee strength for gait, ADLs 07/27/23: 4-/5 R knee; 2/10 pain wiht ext and 3/10 pain with flex; none with 3+/5 MMT 08/22/23: 4-/5 for both, but painful flex/ext STG Duration 6 weeks MET; PROGRESSING Panel Machine Operator Goal (LTG) Pt will improve R knee flexion and extension MMT to at least 4/5 in order to demonstrate increased R knee strength for gait, ADLs 09/14/23: 3+/5 MMT for flex and ext, lateral knee pain LTG Duration 12 weeks NOT MET Walking ability Impairment reports able to ambulate 1/2 block Short Term Goal (STG) Pt will report that she can ambulate at least 1 block with pain <6/10 in order to demonstrate improved BLE strenght, activity tolerance for return to PLOF 07/27/23: 7/10 pain with 3/4 block, without brace 08/22/23: 1 block, 6/10 pain STG Duration 6 weeks PROGRESSING Panel Machine Operator Goal (LTG) Pt will be able to ambulate without limitation and pain <6 /10 in order to demonstate improved BLE strength, activity tolerance for return to PLOF 09/14/23: reports 8/10 pain with 1.5 blocks, w/o brace ( doesn't fit) LTG Duration 12 weeks NOT MET LEFS Impairment LEFS Short Term Goal (STG) Pt will increase LEFS score by at least 9 points in order to demonstrate improved activity tolerance and pain management 08/22/23: STG Duration 6 weeks NOT MET Intermediate Goal (LTG) Pt will increase LEFS score by at least 18 points (2 MCID) in order to demonstrate improved activity tolerance and pain management 09/14/23: LTG Duration 12 weeks NOT MET Assessment Summary Assessment Pt has been seen x14 times since evaluation on May for R knee pain. She is planning on getting a second opinion from ortho specialist on 09/21. Pt has made minimal progress with PT and progression toward goals. She has regressed since last progress note. Her R knee ROM fluctuates depending on pain and activity levels. Currently , pt has 124 deg knee flexion and is lacking 6 deg of extension. She is unable to tolerate more than minimal resistance during knee flexion and extension muscle testing. She reports compliance with HEP and her tolerance for exercises varies by session. However, pt continues to be limited in ability to ambulate greater than a few blocks, perform stairs, or ADLs without increased pain or limitation. She reports overal that her pain levels have not improved. Pt was issued a brace by her previous surgeon, but it did not fit so she never wore the brace. Pt continues to report that her knee feels unstable and had an episode of locking today, which was a new symptom. Pt would benefit from further assessment of her R knee in order to determine next steps in treatment plan. PT and pt discussed stopping PT for now until after visit to ortho due to lack of progress and to maximize PT benefits in case pt is surgical candidate; pt in agreement. Physical Therapy Plan Frequency and Duration Frequency of Treatment 1-2x/wk Duration of treatment (weeks) 10 Plan of Care Start Date 09/14/23 Plan of Care End Date 11/25/23 Therapeutic Interventions Therapeutic Interventions Aquatic Therapy,Balance Training,Coordination Training ,Gait Training,Home Exercise Program,Joint Mobilizations, Manual Therapy,Neuromuscular Re-education,Orthotic/ Prosthetic Management,Patient/ Caregiver Education,Self-Care/ Home Management,Sensory Integration,Soft Tissue Mobilization,Taping, Therapeutic Activities, Therapeutic Exercises Modalities Biofeedback,Cold Pack/Ice Massage,Electric Stimulation, Hot Packs,Ultrasound, Vasopneumatic Devices Next Visit Focus/Plan Next Note Type Treatment Note Next Visit Plan Follow up about ortho visit deadlift, step up, squat (wall with band), LAQ and HSC Manual: soft tissue mobilization to quad/HS/ ligaments, mobilization R knee Modalities for pain reduction See referral for protocol ( strengthen VMO, ITB length, hip ER/abd) Plan of Care Dates Plan of Care Start Date 09/14/23 Plan of Care End Date 11/25/23 Electronically Signed by: Lisa Givens, PT 09/21/23 [id number] If you are in agreement with this Plan of Care, please return a signed and dated copy. I have reviewed this Plan of Care and certify that the skilled therapy services above are required to meet the patient?s needs. Physician Signature Date Printed Name and Credentials Clinical Instructor Signature Printed Name and Credentials
--- NOTE | 2023-10-03 16:32 | PT-OP ANOTE ---
PT called and spoke to pt today at 1630. Pt reports that new surgeon does not want to do surgery yet but also does not want pt to do PT in order to maximize visits. He is having pt do exercises at home to strengthen muscles around the knee. PT and pt spoke baout current plan of care and decided to discharge from PT at this time in order to maximize insurance benefits and so pt and surgeon can determine next course of action.
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
== END 2023-10-17 11:04 | disposition home or self-care (01) ==
LOC: PHYS 09:45
PROVIDERS: Family Provider Family Medicine; PCP Family Medicine; Referring Provider Orthopaedic Surgery; Visit Provider Orthopaedic Surgery
DX: S83.421D Sprain of lateral collateral ligament of right knee, subsequent encounter (principal); R53.1 Weakness; R27.8 Other lack of coordination
CPT/HCPCS: 97110; 97140; 97162

== ENCOUNTER → 2023-09-22 16:16 | Outpatient (CLI) | payer OTHER, SELFPAY ==
--- NOTE | 2023-09-22 16:18 | DI.MG.S_ITS ---
BILATERAL DIGITAL SCREENING MAMMOGRAM 3D/2D WITH CAD: 09/22/2023 CLINICAL: Routine screening. Family history of breast cancer. Comparison is made to exams dated: 05/19/2022 mammogram, 04/09/2021 mammogram, and 03/24/2020 mammogram - [facility]. Both breasts are heterogeneously dense, which may obscure small masses (category c / 51-75% glandular tissue). Current study was also evaluated with a Computer Aided Detection (CAD) system. No significant masses, calcifications, or other findings are seen in either breast. There has been no significant interval change. IMPRESSION: NEGATIVE There is no mammographic evidence of malignancy. A 1 year screening mammogram is recommended. Based on the Tyrer Cuzick model (a risk assessment model) the patient's lifetime risk is 16.0% and her 10 year risk is 3.0%. According to the ACR, ACS, and NCCN guidelines, an annual breast MRI exam along with mammogram is recommended if the patient's lifetime risk is 20% or greater. This exam was interpreted at Station ID: [id number]. NOTE: For mammograms, a report in lay terms will be sent to the patient. Approximately 15% of breast malignancies will not be visualized mammographically. In the management of a palpable breast mass, a negative mammogram must not discourage biopsy of a clinically suspicious lesion. Electronically Signed By: Mesfin [email or web address]:09/23/2023 11:47:51 letter sent: Normal Exam ACR BI-RADS Category 1: Negative [id number]
== END ==
PROVIDERS: Family Provider Family Medicine; PCP Family Medicine; Referring Provider Family Medicine; Visit Provider Family Medicine
DX: Z12.31 Encounter for screening mammogram for malignant neoplasm of breast (principal); Z80.3 Family history of malignant neoplasm of breast; R92.333 Mammographic heterogeneous density, bilateral breasts
CPT/HCPCS: 77063; 77067

== ENCOUNTER → 2024-02-01 11:52 | Outpatient (CLI) | payer OTHER, SELFPAY ==
[2024-02-01 13:46] LABS: Creatinine Urine Random 45.53 mg/dL
[2024-02-01 13:58] LABS: Microalbumin Urine Random < 0.6 mg/dL (0-1.6)
[2024-02-01 14:01] LABS: Add Manual Diff / Slide Review NO; Basophils Absolute Auto 100 /uL (0-100); Basophils Percent Auto 0.9 % (0-2); Eosinophils Absolute Auto 300 /uL (0-450); Eosinophils Percent Auto 3.6 % (2-4); Hematocrit 43.7 % (36-46); Hemoglobin 14.6 g/dL (12.0-16.0); Lymphocytes Absolute Auto 1700 /uL (1100-4500); Lymphocytes Percent Auto 21.4 % (25-40); Mean Corpuscular HGB Conc 33.5 % (30-36); Mean Corpuscular Hemoglobin 27.4 PG (26-34); Monocytes Absolute Auto 300 /uL (0-900); Neutrophils Absolute Auto 5700 /uL (1500-7000); Neutrophils Percent Auto 70.1 % (50-75); Platelet Count 283 X10^3/uL (150-400); Red Blood Cell Count 5.32 X10^6/uL (4.0-5.2); Red Cell Distribution Width 14.7 % (11.6-14.8); White Blood Cell Count 8.2 X10^3/uL (4.5-11.0)
[2024-02-01 14:29] LABS: Alanine Aminotransferase 24 IU/L (<35); Albumin Globulin Ratio 1.3 (1.0-2.8); Alkaline Phosphatase 96 U/L (38-126); Aspartate Aminotransferase 19 IU/L (14-36); BUN Creatinine Ratio 31.4 (6-22); Bilirubin Total 0.9 mg/dL (0.2-1.3); Blood Urea Nitrogen 16 mg/dL (7-17); Calcium 9.6 mg/dL (8.4-10.2); Carbon Dioxide 23 mmol/L (22-32); Chloride 102 mmol/L (98-107); Cholesterol 227 mg/dL (140-199); Estimated Glomerular Filt Rate > 60 mL/min (>60); Glucose 270 mg/dL (70-100); HDL Cholesterol 36 mg/dL (40-60); HEMOLYSIS < 15 (0-50); LDL Cholesterol Calculated 169 mg/dL (<100); Sodium 132 mmol/L (137-145); Triglycerides 109 mg/dL (35-150)
[2024-02-01 15:20] LABS: TSH w/ Reflex to FT4 2.76 uIU/mL (0.47-4.68)
[2024-02-01 15:52] LABS: Hemoglobin A1C% w Est Avg Glu 8.3 % (4.0-6.0)
== END ==
PROVIDERS: Family Provider Family Medicine; PCP Family Medicine; Referring Provider Physician Assistant; Visit Provider Physician Assistant
DX: E03.9 Hypothyroidism, unspecified (principal); E11.65 Type 2 diabetes mellitus with hyperglycemia; E78.5 Hyperlipidemia, unspecified
CPT/HCPCS: 36415; 80053; 80061; 82043; 82570; 83036; 84443; 85025

== ENCOUNTER → 2024-11-06 08:05 | Outpatient (CLI) | payer OTHER, SELFPAY ==
--- NOTE | 2024-11-06 08:06 | DI.MG.S_ITS ---
MM screening mammo BI: 11/06/2024. BI-RADS: 1 CLINICAL: 48-year old female for bilateral screening mammogram. Tyrer-Cuzick lifetime risk of 17.3%. No personal or first-degree family history of breast cancer. Current reported family history of breast cancer: maternal aunt and paternal aunt. The patient is status-post reduction mammoplasty. PRIOR EXAMS 09/22/2023, 05/19/2022, 04/09/2021. MAMMOGRAPHY TECHNIQUE: 2D and 3D (tomosynthesis) digital mammographic views obtained, with additional images as needed for full coverage. Current study was also evaluated with a Computer Aided Detection (CAD) system. DENSITY C. The breasts are heterogeneously dense, which may obscure small masses. MAMMOGRAPHY FINDINGS Bilateral: No suspicious mass, asymmetry, microcalcification, or other abnormality seen. IMPRESSION: * No evidence of malignancy. RECOMMENDATIONS Bilateral * Annual screening mammography. OVERALL ASSESSMENT CATEGORY BI-RADS-1: Negative. The [employer] recommends annual screening mammography beginning at age 40 for women with average risk of breast cancer. ELECTRONICALLY SIGNED: Vania Ledbetter M.D. on 11/06/2024 at 10:50:20 AM PT Interpreting Station ID: [id number]
== END ==
PROVIDERS: Family Provider Family Medicine; PCP Family Medicine; Referring Provider Family Medicine; Visit Provider Family Medicine
DX: Z12.31 Encounter for screening mammogram for malignant neoplasm of breast (principal); Z80.3 Family history of malignant neoplasm of breast; R92.333 Mammographic heterogeneous density, bilateral breasts
CPT/HCPCS: 77063; 77067